=== PATIENT | male | born 1995 ===

== ENCOUNTER 2020-07-22 09:06 | Inpatient (IN) | payer SELFPAY ==
--- NOTE | ~2020-07-22 | IR_ITS ---
EXAMINATION: IR ULTRASOUND AND FLUOROSCOPY-GUIDED TUNNEL CATHETER INSERTION CLINICAL INFORMATION: Kidney insufficiency, needs long-term dialysis. COMPARISON: None TECHNIQUE: Following explaining ultrasound-guided fluoroscopy-guided placement of a tunneled permacath placement procedure, benefits and risk, a written consent was obtained from the patient. Patient was placed supine on fluoroscopy table and preliminary ultrasound imaging was obtained. An optimal site was selected, marked on the skin. The marked area on the right neck was cleaned and draped in usual sterile manner with 2% Chlorhexidine solution. 1% Lidocaine was injected at marked site. Under sterile ultrasound guidance a singlewall needle was advanced through the skin and right jugular vein was punctured. After observing venous return a thin guidewire was advanced and needle withdrawn. A 5-Prydeinig dilator was introduced. The needle and guidewire were anchored to drape with a hemostat. Approximately 1 gauze length distance away from the right skin incision along the right anterior chest wall 1% lidocaine was inserted. 1% lidocaine was inserted along subcutaneous tracts from the right anterior chest wall to the right neck incision. A blunt tunneler attached to the permacath was subcutaneously tunneled from the right chest wall incision to the right neck incision and the tunneled catheter was pulled through the right neck incision. The short guidewire was then exchanged for a long 0.035 J-wire and advanced into the IVC under fluoroscopy through the existing 5 Prydeinig dilator. The 5-Prydeinig dilator was then exchanged up to a 14-Prydeinig dilator and the tract dilated. A 14.2 Prydeinig sheath was then inserted over the guidewire and the dilator and the guidewire was removed. The tunneler anchored to the tip of the permacath was removed and the permacath was advanced through the peel-away sheath. As the catheter was advanced, the peel-away sheath was removed with catheter position checked under fluoroscopy. Both ports of the catheter were flushed with normal saline. The catheter was anchored to the skin with two 3-0 nylon sutures. The skin incision at the neck was sutured with 3-0 absorbable sutures. Heparin was introduced through both the ports. A single image was obtained over the chest for documentation. Sterile dressing was placed at the puncture site. Patient tolerated procedure extremely well. Conscious sedation was utilized for 40 minutes. FINDINGS: On preliminary ultrasound imaging, there is widely patent jugular vein. Ultrasound and fluoroscopy-guided placement of a right 14-Prydeinig tunneled catheter with it's tip at atriocaval junction. IR/IR us guide venous access IMPRESSION: Successful ultrasound and fluoroscopy-guided placement of the right tunneled catheter with it's tip at the atrio ventricular junction, ready for use. Dose: 3 mGy/cm.
--- NOTE | ~2020-07-22 | IR_ITS ---
EXAMINATION: IR ULTRASOUND AND FLUOROSCOPY-GUIDED TUNNEL CATHETER INSERTION CLINICAL INFORMATION: Kidney insufficiency, needs long-term dialysis. COMPARISON: None TECHNIQUE: Following explaining ultrasound-guided fluoroscopy-guided placement of a tunneled permacath placement procedure, benefits and risk, a written consent was obtained from the patient. Patient was placed supine on fluoroscopy table and preliminary ultrasound imaging was obtained. An optimal site was selected, marked on the skin. The marked area on the right neck was cleaned and draped in usual sterile manner with 2% Chlorhexidine solution. 1% Lidocaine was injected at marked site. Under sterile ultrasound guidance a singlewall needle was advanced through the skin and right jugular vein was punctured. After observing venous return a thin guidewire was advanced and needle withdrawn. A 5-Pakistani dilator was introduced. The needle and guidewire were anchored to drape with a hemostat. Approximately 1 gauze length distance away from the right skin incision along the right anterior chest wall 1% lidocaine was inserted. 1% lidocaine was inserted along subcutaneous tracts from the right anterior chest wall to the right neck incision. A blunt tunneler attached to the permacath was subcutaneously tunneled from the right chest wall incision to the right neck incision and the tunneled catheter was pulled through the right neck incision. The short guidewire was then exchanged for a long 0.035 J-wire and advanced into the IVC under fluoroscopy through the existing 5 Pakistani dilator. The 5-Pakistani dilator was then exchanged up to a 14-Pakistani dilator and the tract dilated. A 14.2 [place] sheath was then inserted over the guidewire and the dilator and the guidewire was removed. The tunneler anchored to the tip of the permacath was removed and the permacath was advanced through the peel-away sheath. As the catheter was advanced, the peel-away sheath was removed with catheter position checked under fluoroscopy. Both ports of the catheter were flushed with normal saline. The catheter was anchored to the skin with two 3-0 nylon sutures. The skin incision at the neck was sutured with 3-0 absorbable sutures. Heparin was introduced through both the ports. A single image was obtained over the chest for documentation. Sterile dressing was placed at the puncture site. Patient tolerated procedure extremely well. Conscious sedation was utilized for 40 minutes. FINDINGS: On preliminary ultrasound imaging, there is widely patent jugular vein. Ultrasound and fluoroscopy-guided placement of a right 14-Pakistani tunneled catheter with it's tip at atriocaval junction. 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 Dose: 3 mGy/cm.
[2020-07-22 09:13] VITALS: BP 160/81; PULSE 71; RESP 16; TEMP 36.6; O2SAT 99; BMI 25.8
--- NOTE | 2020-07-22 10:08 | ED.NAVMDI ---
HPI - Nausea/Vomiting/Diarrhea General Chief complaint: Abdominal Pain Stated complaint: vomiting 2 days Time Seen by Provider: 07/22/20 10:01 Source: patient Mode of arrival: ambulatory History of Present Illness HPI Narrative: 25-year-old male with a past medical history of chronic kidney disease, HTN, diabetes, presenting to the ED complaining of persistent nausea and vomiting x2 days. Reports back pain associated with vomiting. Denies fever, chills, abdominal pain, diarrhea/constipation, dysuria/hematuria, recent travel, suspicious food intake, sick contacts Patient reports history of CKD, noncompliant on hypertensive medications/follow-up with his paving rammer, last year was supposed to be initiated on dialysis Related Data Allergies Allergy/AdvReac Type Severity Reaction Status Date / Time NSAIDS (Non-Steroidal AdvReac Unknown KIDNEY Unverified 03/06/20 16:30 Anti-Inflamma DISEASE [NSAIDS (NON-STEROIDAL ANTI-INFLAMMA] Review of Systems Review of Systems: Constitutional: No Weight loss, No Fever, No Chills Cardiovascular: No Chest Pain, No SOB Respiratory: No Cough, No Sputum Gastrointestinal: + Nausea, + Vomiting, No Diarrhea, No Constipation, No Abdominal pain Genitourinary: No irregular bleeding, No Dysuria, No Urinary Frequency, No Hematuria,No Flank Pain, No Urinary Flow Changes, No Hesitancy Musculoskeletal: No joint pain, No Myalgias, No Joint Swelling Skin: No Skin Lesions, No rash Yes all other systems are reviewed and are negative [facility] Past Medical History Attestation statement: The following information was validated with the patient. Medical History (Updated 07/22/20 @ 13:36 by JUAN Quiñones) Chronic kidney disease Hypertension Social History Social History Advance Directives: Yes Advance Directives Information Provided: Yes Advance Directives on File: No Physical Exam Vital Signs: Vital Signs: Last Vital Signs Temp 98 F 07/22/20 09:13 Pulse 71 07/22/20 09:13 Resp 16 07/22/20 09:13 BP 160/81 H 07/22/20 09:13 Pulse Ox 99 07/22/20 09:13 Body Mass Index 25.8 Const: General: cooperative, healthy appearing, comfortable and no acute distress Orientation/consciousness: patient oriented x3 Limitations: no limitations HENMT: Head: Yes normal to inspection Ears: hearing grossly normal bilaterally General nose exam: Normal external nose present Face and sinus: Yes normal facial exam Eyes: General: appearance normal, both eyes and all related structures EOM: EOMs intact bilaterally Neck: Neck: Yes normal visual inspection Resp: Effort & Inspection: normal respiratory effort Cardio: Rate: regular rate GI: Inspection: Yes normal to inspection Palpation (GI): Soft to palpation, nontender, no guarding and not rigid : General: Yes no CVA tenderness Back/Spine/Pelvis: Back: no CVA tenderness Skin: Rashes: no rashes Wounds: no wounds Neuro: General: patient oriented x3 Gait exam (Neuro): Normal gait present Extrem: General: Yes normal to inspection Course Course Course Narrative: - 1241-- H&H slightly lower than baseline. Worsening acute on chronic renal failure with a BUN of 105, creatinine 14.9 > nephrology paged - UA is infected > IV Rocephin ordered - 1330-- spoke to Nephrology, Dr. Bunch, recommended admission for dialysis tomorrow MDM - Nausea/Vomiting/Diarrhea MDM Narrative Medical decision making narrative: 25-year-old male with a past medical history of chronic kidney disease, HTN, diabetes, presenting to the ED complaining of persistent nausea and vomiting x2 days. On exam VSS, NAD/nontoxic, physical exam as above. Concern for DKA/hyperglycemia vs dehydration/metabolic abnormalities vs acute on chronic INGRID vs gastroenteritis. No concern for diverticulitis/appendicitis/cholecystitis/pancreatitis without tenderness on exam Low concern for severe sepsis Plan: Labs, UA, IVF/symptomatic therapies, reassess Medical Records Attestation: I reviewed the patient's medical records. Lab Data Attestation: I reviewed the patient's lab results. Result diagrams: 07/22/20 11:38 07/22/20 11:38 Labs: Lab Results 07/22/20 07/22/20 07/22/20 Range/Units 11:38 11:38 11:38 WBC 9.7 (4.8-10.8) X10*3/uL RBC 3.28 L (4.60-5.80) X10*6/uL Hgb 9.4 L (14.0-18.0) g/dl Hct 28.2 L (42-52) % MCV 86.0 (80-98) fL MCH 28.7 (27.0-33.0) pg MCHC 33.3 (31.0-36.0) g/dl RDW 13.0 (11.0-16.0) % Plt Count 114 L (160-400) X10*3/uL MPV 11.3 (9.4-12.4) fL Immature Gran % (Auto) 0.6 H (0.0-0.4) % Neut % (Auto) 82.7 H (45-73) % Lymph % (Auto) 11.8 L (20-40) % [place] % (Auto) 3.6 (2-11) % Eos % (Auto) 1.0 (0-4) % Baso % (Auto) 0.3 (0-2) % Lymph # (Auto) 1.1 L (1.2-4.9) X10*3/uL [place] # (Auto) 0.4 (0.1-1.2) X10*3/uL Eos # (Auto) 0.1 (0.0-0.4) X10*3/uL Baso # (Auto) 0.0 (0.0-0.2) X10*3/uL Abs Immat Gran (auto) 0.06 H (0.00-0.03) X10*3/uL Absolute Neuts (auto) 8.0 (2.0-8.3) X10*3/uL Absolute Nucleated RBC 0.000 (0.0-0.012) X10*3/uL Nucleated RBC % (auto) 0.0 (0.0-0.2) /100WBC Hold Blue Top SEE NOTE Sodium 140 (135-145) mmol/L Potassium 4.3 (3.3-5.1) mmol/L Chloride 109 H (96-108) mmol/L Carbon Dioxide 15 L (22-29) mmol/L Anion Gap 20 (12-20) BUN 105 H* (9-16) mg/dL Creatinine 14.94 H* (0.5-1.4) mg/dL Estim Creat Clear Calc 7.3 Estimated GFR 4 Random Glucose 95 (60-115) mg/dL Calcium 7.0 L (8.4-10.2) mg/dL Magnesium 2.1 (1.6-2.6) mg/dL Total Bilirubin 0.5 (0.0-1.0) mg/dL Direct Bilirubin 0.2 (0.0-0.5) mg/dL AST 5 (5-37) U/L ALT 6 (0-40) U/L Alkaline Phosphatase 86 (39-117) U/L Total Protein 6.7 (6.5-8.0) g/dL Albumin 4.1 (3.5-5.0) g/dL Lipase 39 (8-78) U/L Urine Color Urine Appearance Urine pH (5.0-8.0) Ur Specific [place] (1.005-1.025) Urine Protein (NEG-TRACE) MG/DL Urine Glucose (UA) (NEG) MG/DL Urine Ketones (NEG) MG/DL Urine Blood (NEG) Urine Nitrite (NEG) Ur Leukocyte Esterase (NEG) Urine RBC (0) /HPF Urine WBC (0-4) /HPF Ur Squamous Epith Cells /LPF Urine Bacteria /LPF Urine Opiates Screen (Not Detect) Ur Barbiturates Screen (Not Detect) Ur Phencyclidine Scrn (Not Detect) Ur Amphetamines Screen (Not Detect) U Benzodiazepines Scrn (Not Detect) Urine Cocaine Screen (Not Detect) U Marijuana (THC) Screen (Not Detect) 07/22/20 07/22/20 Range/Units 11:39 11:39 WBC (4.8-10.8) X10*3/uL RBC (4.60-5.80) X10*6/uL Hgb (14.0-18.0) g/dl Hct (42-52) % MCV (80-98) fL MCH (27.0-33.0) pg MCHC (31.0-36.0) g/dl RDW (11.0-16.0) % Plt Count (160-400) X10*3/uL MPV (9.4-12.4) fL Immature Gran % (Auto) (0.0-0.4) % Neut % (Auto) (45-73) % Lymph % (Auto) (20-40) % [place] % (Auto) (2-11) % Eos % (Auto) (0-4) % Baso % (Auto) (0-2) % Lymph # (Auto) (1.2-4.9) X10*3/uL [place] # (Auto) (0.1-1.2) X10*3/uL Eos # (Auto) (0.0-0.4) X10*3/uL Baso # (Auto) (0.0-0.2) X10*3/uL Abs Immat Gran (auto) (0.00-0.03) X10*3/uL Absolute Neuts (auto) (2.0-8.3) X10*3/uL Absolute Nucleated RBC (0.0-0.012) X10*3/uL Nucleated RBC % (auto) (0.0-0.2) /100WBC Hold Blue Top Sodium (135-145) mmol/L Potassium (3.3-5.1) mmol/L Chloride (96-108) mmol/L Carbon Dioxide (22-29) mmol/L Anion Gap (12-20) BUN (9-16) mg/dL Creatinine (0.5-1.4) mg/dL Estim Creat Clear Calc Estimated GFR Random Glucose (60-115) mg/dL Calcium (8.4-10.2) mg/dL Magnesium (1.6-2.6) mg/dL Total Bilirubin (0.0-1.0) mg/dL Direct Bilirubin (0.0-0.5) mg/dL AST (5-37) U/L ALT (0-40) U/L Alkaline Phosphatase (39-117) U/L Total Protein (6.5-8.0) g/dL Albumin (3.5-5.0) g/dL Lipase (8-78) U/L Urine Color STRAW Urine Appearance HAZY Urine pH 6.0 (5.0-8.0) Ur Specific [place] 1.020 (1.005-1.025) Urine Protein 2+ H (NEG-TRACE) MG/DL Urine Glucose (UA) 100 H (NEG) MG/DL Urine Ketones NEG (NEG) MG/DL Urine Blood 2+ H (NEG) Urine Nitrite NEG (NEG) Ur Leukocyte Esterase TRACE H (NEG) Urine RBC 1-4 (0) /HPF Urine WBC 30-49 H (0-4) /HPF Ur Squamous Epith Cells TRACE /LPF Urine Bacteria 1+ /LPF Urine Opiates Screen Not Detected (Not Detect) Ur Barbiturates Screen Not Detected (Not Detect) Ur Phencyclidine Scrn Not Detected (Not Detect) Ur Amphetamines Screen Not Detected (Not Detect) U Benzodiazepines Scrn Not Detected (Not Detect) Urine Cocaine Screen Not Detected (Not Detect) U Marijuana (THC) Screen Not Detected (Not Detect) Discharge Plan Discharge Clinical Impression: Acute UTI Renal failure, acute on chronic Qualifiers: Acute renal failure type: unspecified Chronic kidney disease stage: unspecified stage Qualified Code(s): N17.9 - Acute kidney failure, unspecified Patient Disposition: Admitted As Inpatient
[2020-07-22 11:46] LABS: MANUAL DIFF FLAG NO
[2020-07-22 11:53] LABS: Basophils Percent Auto 0.3 % (0-2); Eosinophils Absolute Auto 0.1 X10*3/uL (0.0-0.4); Hematocrit 28.2 % (42-52); Hemoglobin 9.4 g/dl (14.0-18.0); Imm Gran Abs Auto 0.06 X10*3/uL (0.00-0.03); Imm Gran Pct Auto 0.6 % (0.0-0.4); Lymphocytes Absolute Auto 1.1 X10*3/uL (1.2-4.9); Lymphocytes Percent Auto 11.8 % (20-40); Mean Corpuscular HGB Conc 33.3 g/dl (31.0-36.0); Mean Corpuscular Hemoglobin 28.7 pg (27.0-33.0); Mean Platelet Volume 11.3 fL (9.4-12.4); Monocytes Absolute Auto 0.4 X10*3/uL (0.1-1.2); Monocytes Percent Auto 3.6 % (2-11); Neutrophils Percent Auto 82.7 % (45-73); Platelet Count 114 X10*3/uL (160-400); Red Blood Count 3.28 X10*6/uL (4.60-5.80); White Blood Count 9.7 X10*3/uL (4.8-10.8)
[2020-07-22 11:57] LABS: Appearance Urine HAZY; Color Urine STRAW; Glucose Urine UA 100 MG/DL (NEG); Leukocyte Esterase Urine TRACE (NEG); Nitrite Urine NEG (NEG); UACC Culture Trigger YES; Urine Blood 2+ (NEG); Urine Ketones NEG (NEG); Urine Protein 2+ MG/DL (NEG-TRACE)
[2020-07-22 12:06] LABS: Squamous Epithelial Cell Urine TRACE /LPF; WBC Urine 30-49 /HPF (0-4)
[2020-07-22 12:07] LABS: Bacteria Urine 1+ /LPF
[2020-07-22] MEDS: Famotidine/PF 20 MG/2 ML VIAL IVPUSH (12:20)
[2020-07-22] MEDS: 0.9 % Sodium Chloride 1,000 ML 999 ML IVCONT ×2 (12:20→15:03)
[2020-07-22] MEDS: ondansetron HCL 4 MG/2 ML VIAL IVPUSH (12:20)
[2020-07-22] MEDS: Lidocaine HCl Viscous 2 % 15 ML SOLUTION MUCOUS MEM (12:20)
[2020-07-22 12:26] LABS: Alanine Aminotransferase 6 U/L (0-40); Albumin Level 4.1 g/dL (3.5-5.0); Alkaline Phosphatase 86 U/L (39-117); Anion Gap 20 (12-20); Aspartate Amino Transferase 5 U/L (5-37); Bilirubin Direct 0.2 mg/dL (0.0-0.5); Bilirubin Total 0.5 mg/dL (0.0-1.0); Blood Urea Nitrogen 105 mg/dL (9-16); Carbon Dioxide 15 mmol/L (22-29); Chloride 109 mmol/L (96-108); Creatinine Clr Calc Pharmacy 7.3; Estimated Glomerular Filt Rate 4; Glucose Random 95 mg/dL (60-115); Lipase 39 U/L (8-78); Magnesium 2.1 mg/dL (1.6-2.6); Potassium 4.3 mmol/L (3.3-5.1); Sodium 140 mmol/L (135-145); Total Protein 6.7 g/dL (6.5-8.0)
[2020-07-22 12:28] LABS: Amphetamine Screen Urine Not Detected (Not Detect); Barbiturates, Urine Not Detected (Not Detect); Benzodiazepines Screen Urine Not Detected (Not Detect); Cannabinoid Screen Urine Not Detected (Not Detect); Cocaine Screen Urine Not Detected (Not Detect); Opiate Screen Urine Not Detected (Not Detect); Phencyclidine Screen Urine Not Detected (Not Detect)
--- NOTE | 2020-07-22 13:52 | PC.NURSE ---
reported lower back pain after vomiting. 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 no active vomiting.
[2020-07-22 14:18] LABS: COVID-19 Test Negative (Negative); IDNOW Serial# 9DD0AD1C
[2020-07-22 14:35] VITALS: BP 137/78; PULSE 89; RESP 16; TEMP 36.7; O2SAT 100
[2020-07-22] MEDS: cefTRIAXone sodium 1 GM in 0.9 % Sodium Chloride 50 ML IV (15:03)
--- NOTE | 2020-07-22 17:06 | PM.EVENT ---
Event Note Date of Service: 07/22/20 Event Note: Patient seen examined case discussed with APC 25-year-old gentleman with past medical history significant for chronic kidney disease non compliant with antihypertensive medication, history of hypertension,presented to emergency room with symptoms of nausea vomiting of 2 days duration without associated fever chills or diarrhea patient denies any sick contacts no outside food no recent travel, no hematemesis vomitus consisted of mostly food and bile On examination sitting comfortably no distress Color pale Lungs clear to auscultation Heart regular tachy Abdomen soft nontender Extremities no edema Assessment plan Acute on chronic kidney disease patient creatinine jumped from 7 in 2019 to 14.9 today with a bicarb of 15 normal potassium, no signs of uremia Will treat patient with IV fluids follow renal function and obtain nephrology consultation ARF likely related to dehydration versus worsening of baseline kidney disease BP 160/81 on arrival now improved to 130 /78 follow BP closely
[2020-07-22] MEDS: 0.9 % Sodium Chloride 1,000 ML 125 ML IVCONT (17:18)
--- NOTE | 2020-07-22 17:19 | HP_ITS ---
DATE OF SERVICE: 07/22/2020 CHIEF COMPLAINT: Nausea and vomiting. HISTORY OF PRESENT ILLNESS: A 25-year-old man with a history of chronic kidney disease since childhood, presents with nausea and vomiting over the last 2 days. He reports that his appetite has been poor. He denies any outside foods, marijuana, recent illness, or travel. He denied fever, chills, abdominal pain, diarrhea. He reported that he has not been on his antihypertensive medication for at least 6 months. He does not have a primary care provider. He reports that he does produce urine. His baseline creatinine is around 5. Today, his creatinine is 14.94. He does not appear to be uremic and he is nontoxic. His BUN is 105. Potassium 4.3. Coronavirus PCR is negative. His vital signs are stable, though his initial blood pressure was mildly elevated at 160/81. He was given a dose of Rocephin for urinary tract infection, famotidine, 1 L of IV fluid. He will be admitted for further management and treatment of acute on chronic kidney disease. PAST MEDICAL HISTORY: 1. Chronic kidney disease since childhood. 2. Hypertension. Not on antihypertensives. PAST SURGICAL HISTORY: None. SOCIAL HISTORY: Denies any alcohol, tobacco, illicit drug use. 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 FAMILY HISTORY: Both parents and his sister are diabetic. High blood pressure also in the family. ALLERGIES: TO NSAIDS. MEDICATIONS: 1. Calcifediol 30 mcg p.o. at bedtime. 2. Sodium bicarbonate 650 mg p.o. daily. REVIEW OF SYSTEMS: CONSTITUTIONAL: Denies any recent fever, chills, or decrease in appetite. RESPIRATORY: Denies any shortness of breath, cough, or sputum production. CARDIOVASCULAR: Denies any chest pain, orthopnea, PND, or edema. GASTROINTESTINAL: See HPI. GENITOURINARY: See HPI. NEUROPSYCH: Denies any weakness or seizures. All other systems are reviewed and are negative. PHYSICAL EXAMINATION: CONSTITUTIONAL: Resting in bed, appearing in no acute distress. VITAL SIGNS: 98.1, 89, 16, 137/70, 100% on room air. SKIN: Intact without rashes or open sores. HEENT: Head is normocephalic, atraumatic. Eyes, pupils are PERRLA. Sclerae anicteric. Mouth and throat, mucous membrane are intact and moist. NECK: Supple. No lymphadenopathy. No JVD noted. CHEST: Clear to auscultation without wheezes, rhonchi, or rales. HEART: Regular rate and rhythm. Clear S1, S2. No murmurs, rubs, or gallops. ABDOMEN: Positive bowel sounds. Soft. Nontender. No hepatomegaly or splenomegaly noted. NEURO: The patient is alert and oriented x3. Cranial nerves II through XII grossly intact without focal deficits. LABORATORY DATA: WBC 9.7, hemoglobin 9.4, hematocrit 28.2, platelets 114. Sodium is 140, potassium 4.3, chloride is 109, bicarb is 15, BUN is 105, creatinine 14.94. COVID, negative. ASSESSMENT AND PLAN: A 25-year-old man with history of chronic renal disease, appears to be in acute renal disease, likely related to dehydration and volume loss from vomiting. 1. Acute on chronic kidney disease. IV hydration. Nephrology to follow. If no improvement seen in his creatinine, may need dialysis. We will recheck BMP this evening after more hydration. The patient appears to be nontoxic. 2. Anemia. Likely related to chronic kidney disease. No signs of bleeding. Follow CBC. 3. Urinary tract infection. Mild. Rocephin. Follow urine culture. 4. Deep vein thrombosis prophylaxis with early ambulation, low risk. 5. Case discussed with Dr. Berry. PAOLA Thomas MD JR/VITA / [id number]
[2020-07-22] MEDS: Sodium Bicarbonate 650 MG TABLET PO (17:34)
[2020-07-22 20:33] VITALS: BP 144/76; PULSE 66; RESP 16; O2SAT 100
--- NOTE | 2020-07-22 23:29 | PC.NURSE ---
OK TO SHARE INFORMATION WITH GIRLFRIEND ROHITH PER PATIENT.
[2020-07-23] VITALS (8 sets, daily range): BP systolic 133–152; BP diastolic 55–83; PULSE 60–84; RESP 16–18; TEMP 36.4–37.1; O2SAT 97–100
--- NOTE | 2020-07-23 00:03 | PC.NURSE ---
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 SITTING UP ON SIDE OF BED. REQUESTING SOMETHING TO DRINK. WANTED TO HAVE OJ. EDUCATED THAT DUE TO RENAL FUNCTION OJ WAS NOT APPROPRIATE. REPORTS DRINKING A GALLON OF OJ A DAY AT HOME.
[2020-07-23] MEDS: 0.9 % Sodium Chloride Flush 3 ML SYRINGE IVFLUSH ×2 (00:26→17:23)
[2020-07-23] MEDS: 0.9 % Sodium Chloride 1,000 ML 125 ML IVCONT (04:30)
[2020-07-23 04:46] LABS: Basophils Percent Auto 0.3 % (0-2); Eosinophils Absolute Auto 0.1 X10*3/uL (0.0-0.4); Eosinophils Percent Auto 2.2 % (0-4); Hematocrit 25.7 % (42-52); Hemoglobin 8.4 g/dl (14.0-18.0); Imm Gran Abs Auto 0.01 X10*3/uL (0.00-0.03); Imm Gran Pct Auto 0.2 % (0.0-0.4); Lymphocytes Absolute Auto 1.6 X10*3/uL (1.2-4.9); Lymphocytes Percent Auto 24.2 % (20-40); Mean Corpuscular HGB Conc 32.7 g/dl (31.0-36.0); Mean Corpuscular Volume 88.6 fL (80-98); Mean Platelet Volume 11.4 fL (9.4-12.4); Monocytes Absolute Auto 0.3 X10*3/uL (0.1-1.2); Monocytes Percent Auto 4.8 % (2-11); Neutrophils Absolute Auto 4.4 X10*3/uL (2.0-8.3); Neutrophils Percent Auto 68.3 % (45-73); Platelet Count 100 X10*3/uL (160-400); Red Cell Distribution Width 13.2 % (11.0-16.0); White Blood Count 6.5 X10*3/uL (4.8-10.8)
[2020-07-23 04:48] LABS: MANUAL DIFF FLAG NO
[2020-07-23 05:15] LABS: Anion Gap 18 (12-20); Blood Urea Nitrogen 99 mg/dL (9-16); Carbon Dioxide 14 mmol/L (22-29); Chloride 113 mmol/L (96-108); Creatinine Clr Calc Pharmacy 7.9; Estimated Glomerular Filt Rate 4; Glucose Random 80 mg/dL (60-115); Potassium 4.3 mmol/L (3.3-5.1); Sodium 141 mmol/L (135-145)
[2020-07-23 05:27] LABS: Calcium 6.8 mg/dL (8.4-10.2)
[2020-07-23 08:01] LABS: Iron 83 mcg/dL (45-160); Percent Iron Saturation 39 % (15-50); Total Iron Binding Capacity 212 mcg/dL (228-428); Unsaturated Iron Binding 129 ug/dL
[2020-07-23 08:24] LABS: Ferritin 142 ng/mL (20-250)
[2020-07-23] MEDS: Sodium Bicarbonate 650 MG TABLET PO (11:02)
--- NOTE | 2020-07-23 11:02 | P.CONNP_ITS ---
History of Present Illness Reason for Consult Consult date: 07/23/20 Reason for consult: Uremia Chief Complaint Chief complaint: vomiting 2 days History of Present Illness Narrative: 25-year-old with advanced chronic kidney disease at baseline who has been non compliant with appointments since one year presented to ER with nausea and vomiting over the last 2 days. His appetite has been poor. He has not been on his antihypertensive medication for at least 6 months. His baseline creatinine is around 5. Today, his creatinine at presentation was 14.94. Coronavirus PCR is negative. He was admitted for further management . Nephrology was consulted to assist in his clinical care during his current hospital stay Review of Systems Review of Systems Yes all other systems are reviewed and are negative PMF Past Medical History Medical History (Updated 07/23/20 @ 11:09 by Trevin Bunch MD) Chronic kidney disease Hypertension Family History Family history: reviewed and not pertinent Social History Social History Alcohol intake: current Alcohol intake frequency: holidays/special occasions only Smoking Status: Never smoker Use of substances other than those prescribed or required for medical reasons: Yes Substance Use Type: Marijuana Substance Use Frequency: Daily Advance Directives: Yes Advance Directives Information Provided: Yes Advance Directives on File: No Meds Allergies Allergy/AdvReac Type Severity Reaction Status Date / Time NSAIDS (Non-Steroidal AdvReac Unknown KIDNEY Unverified 03/06/20 16:30 Anti-Inflamma DISEASE [NSAIDS (NON-STEROIDAL ANTI-INFLAMMA] Home Medications Medication Instructions Recorded Confirmed Type calcifediol [Rayaldee] 30 mcg PO BEDTIME 07/22/20 07/22/20 History sodium bicarbonate 650 mg PO DAILY 07/22/20 07/22/20 History Physical Exam Vital Signs: Last Vital Signs Temp 98.5 F 07/23/20 08:00 Pulse 60 07/23/20 08:00 Resp 18 07/23/20 08:00 BP 140/64 H 07/23/20 08:00 Pulse Ox 100 07/23/20 08:00 Body Mass Index 25.8 Const General: comfortable Orientation/consciousness: patient oriented x3 HENMT Head: Yes normocephalic Eyes EOM: EOMs intact bilaterally Resp Auscultation: diminished lung sounds Cardio Heart sounds: no rubs GI Palpation (GI): Soft to palpation Neuro General: patient oriented x3 and moves all extremities Results Lab Results Result Diagrams: 07/23/20 04:34 07/23/20 04:34 Lab results: Chemistry 07/22/20 07/23/20 11:38 04:34 Sodium 140 141 Potassium 4.3 4.3 Carbon Dioxide 15 L 14 L BUN 105 H* 99 H* Creatinine 14.94 H* 13.93 H* Calcium 7.0 L 6.8 L Hematology 07/22/20 07/23/20 11:38 04:34 WBC 9.7 6.5 Hgb 9.4 L 8.4 L Plt Count 114 L 100 L Urinalysis 07/22/20 11:39 Urine Color STRAW Urine Appearance HAZY Urine pH 6.0 Ur Specific [place] 1.020 Urine Protein 2+ H Urine Glucose (UA) 100 H Urine Ketones NEG Urine Blood 2+ H Urine Nitrite NEG Ur Leukocyte Esterase TRACE H Urine RBC 1-4 Urine WBC 30-49 H Ur Squamous Epith Cells TRACE Assessment and Plan (1) ESRD (end stage renal disease): Status: Acute Uremic Permcath tomorrow AM by IR Could receive DDAVP 25 mcg IVP tomorrow AM pre permcath Needs to be NPO from midnight for permcath tomorrow Needs INR if not done Dialysis tomorrow, Tuesday and Tuesday Outpatient HD spot requested in [facility] ( Senior Finance Manager Dipika York RN- Tel No: [phone]) Could be discharged after HD on tuesday D/C NaHCO3 tomorrow Renal Diet ( Low sodium, Low Phos) ( Has good urine output and normal serum K- So restriction for it for now) Hepatitis panel /PTH/Vitamin D AM Case Management need to touch base with Dipika York( details mentioned above) (2) Anemia in chronic kidney disease: Status: Acute Needs check Iron studies including transferrin saturation If T sat is > 20 %, shall initiate Procrit (3) Hypertension: Status: Acute Shall bring dry weight down on HD Will start low dose ARB if BP remains labile (4) Metabolic acidosis: Status: Acute Shall adjust Bicarb on HD and D/C PO NaHCO3 tomorrow
--- NOTE | 2020-07-23 14:24 | MHC.CM.PN ---
pt lives c his mother in her home. he reports that he is independent in his care. hi mother [place] provide transportation [place]. pt is just starting dialysis; plan is to have HD here tuesday and tuesday; then dc c transition of HD to the following:Outpatient HD spot requested in [facility] ( Pick Pack Worker Dipika York RN- Tel No: [phone]) . cm to cont . to follow.
--- NOTE | 2020-07-23 15:47 | P.PNIM_ITS ---
Subjective Subjective Date of Service: 07/23/20 Interval History: No acute complaints denies nausea, no vomiting no abdominal pain has been receiving IV fluid overnight. General no headache, no dizziness , no fever chills. CVS no chest pain, no palpitation. Respiratory no cough, no shortness of breath Gastrointestinal no nausea, no vomiting, no abdominal pain Physical Exam Vital Signs: Vital Signs: Last Vital Signs Temp 97.6 F 07/23/20 15:35 Pulse 67 07/23/20 15:35 Resp 18 07/23/20 15:35 BP 133/83 07/23/20 15:35 Pulse Ox 100 07/23/20 15:35 Body Mass Index 25.8 General no acute distress. Neck supple, no JVD. CVS regular rate rhythm, Respiratory lungs clear to auscultation, no respiratory distress, no wheeze, no rhonchi. Gastrointestinal abdomen soft, nontender, bowel sounds audible, no guarding , no rigidity. Extremities no edema. Neuro nonfocal , speech clear. Skin no rash, color pale Objective Data Current Medications Generic Name Dose Route Start Last Admin Trade Name Jose Alfredoq PRN Reason Stop Dose Admin Acetaminophen 650 mg 07/22/20 16:01 Acetaminophen 325 Mg Tablet PO Q6H PRN Pain, Mild (Pain Scale 1-3) Heparin Sodium (Porcine) 5,000 unit 07/24/20 06:00 Heparin Sodium,Porcine 5,000 Unit/Ml Vial INTRACATH 07/24/20 06:01 ONCE ONE Desmopressin Acetate 20 mcg/ 55 mls @ 100 mls/hr 07/24/20 06:00 Sodium Chloride IV ONCE@0600 [facility] Non-Formulary Medication 30 mcg 07/22/20 21:00 Calcifediol [Rayaldee] PO BEDTIME [facility] Ondansetron HCl 4 mg 07/22/20 16:01 Ondansetron Hcl 4 Mg/2 Ml Vial IVPUSH Q8H PRN Nausea and Vomiting Pharmacy Consult 1 each 07/22/20 13:37 Consult Rx Perform Med Rec MISCELLANE ONCE PRN Consult order Sodium Bicarbonate 650 mg 07/23/20 09:00 07/23/20 11:02 Sodium Bicarbonate 650 Mg Tablet PO 650 mg DAILY [facility] Administration Sodium Chloride 3 ml 07/22/20 16:01 07/23/20 07:27 0.9 % Sodium Chloride Flush 3 Ml Syringe IVFLUSH Not Given QSHIFT [facility] Labs CBC & Chem 7: 07/23/20 04:34 07/23/20 04:34 Microbiology Microbiology Results: Microbiology 07/22/20 Unknown Urine clean catch - Clean Catch Midstream Urine Culture - Final No growth. Assessment and Plan (1) Anemia in chronic kidney disease: Status: Acute (2) Renal failure, acute on chronic: Status: Acute (3) ESRD (end stage renal disease): Status: Acute (4) Hypertension: Status: Acute (5) Acute UTI: Status: Acute (6) Metabolic acidosis: Status: Acute Assessment and Plan: 25-year-old man with history of chronic renal disease, appears to be in acute renal disease, likely related to worsening underlying renal disease, dehydration due to volume loss from vomiting. 1. Acute on chronic advance kidney disease. No further bout of nausea ,vomiting, no abdominal pain, no change in creatinine despite IV hydration, case discussed with Nephrology patient has reached end-stage renal disease therefore PermCath is scheduled for tomorrow, and then patient will receive 3 days of hemodialysis in-house and then will be discharged home for continued outpatient hemodialysis Will keep patient NPO after midnight. 2. Anemia related to kidney disease. Patient noted to have drop in hematocrit overnight iron studies are normal, will with discuss with Nephro regarding Procrit 3. Positive UA, patient asymptomatic urine culture showed no growth therefore will discontinue IV antibiotic . 4. Metabolic acidosis due to advanced renal disease continue soda bicarb today, Nephro will adjust bicarb on hemodialysis tomorrow. Deep vein thrombosis prophylaxis with early ambulation, avoid anticoagulation due to anemia.
[2020-07-24] MEDS: 0.9 % Sodium Chloride Flush 3 ML SYRINGE IVFLUSH ×3 (01:15→23:16)
[2020-07-24 03:25] VITALS: BP 140/81; PULSE 69; RESP 18; TEMP 36.8; O2SAT 99
[2020-07-24 07:14] LABS: Partial Thromboplastin Time 27.6 SEC (24.1-38.0)
[2020-07-24 07:33] LABS: INTERNATIONAL NORM RATIO 1.2 (0.9-1.1); Prothrombin Time 13.7 SEC (10.8-13.0)
[2020-07-24 07:51] LABS: Iron 101 mcg/dL (45-160); Percent Iron Saturation 47 % (15-50); Phosphorus 8.3 mg/dL (2.7-4.5); Total Iron Binding Capacity 216 mcg/dL (228-428); Unsaturated Iron Binding 115 ug/dL
[2020-07-24 08:00] VITALS: BP 138/62; PULSE 72; RESP 16; TEMP 36.8; O2SAT 98
[2020-07-24 08:11] LABS: Vitamin D 25-OH Total 8.5 ng/mL (>30)
[2020-07-24 08:59] LABS: HBS Num1 27.96 mIU/mL (0-7.99); HBc Num1 0.09 S/CO (0.00-0.79); HBsAGNum1 0.18 S/CO (0.00-0.99); Hepatitis B Core Antibody Nonreactive (Nonreactive); Hepatitis B Surface Antigen Negative (Negative); ~Hepatitis B Surface Antibody REACTIVE (Nonreactive)
[2020-07-24] MEDS: Sodium Bicarbonate 650 MG TABLET PO (09:08)
[2020-07-24 09:15] LABS: ~HepC Num1 0.13 S/CO (0.00-0.79); ~Hepatitis C Antibody Nonreactive (Nonreactive)
--- NOTE | 2020-07-24 10:50 | HO.PM.IMPN ---
Subjective Subjective Date of Service: 07/24/20 Interval History: Patient offers no acute complaints slept well no nausea, no vomiting, no diarrhea, wishes to take a shower ros General no headache, no dizziness , no fever chills. CVS no chest pain, no palpitation. Respiratory no cough, no shortness of breath Gastrointestinal no nausea, no vomiting, no abdominal pain Physical Exam Vital Signs: Vital Signs: Last Vital Signs Temp 98.3 F 07/24/20 08:00 Pulse 72 07/24/20 08:00 Resp 16 07/24/20 08:00 BP 138/62 07/24/20 08:00 Pulse Ox 98 07/24/20 08:00 Body Mass Index 25.8 General no acute distress resting comfortably in bed. Neck supple, no JVD. CVS regular rate rhythm, Respiratory lungs clear to auscultation, no respiratory distress, no wheeze, no rhonchi. Gastrointestinal abdomen soft, nontender, bowel sounds audible, no guarding , no rigidity. Extremities no edema. Neuro nonfocal , speech clear. Skin no rash, color pale Objective Data Current Medications Generic Name Dose Route Start Last Admin Trade Name Freq PRN Reason Stop Dose Admin Acetaminophen 650 mg 07/22/20 16:01 Acetaminophen 325 Mg Tablet PO Q6H PRN Pain, Mild (Pain Scale 1-3) Desmopressin Acetate 20 mcg/ 55 mls @ 100 mls/hr 07/24/20 12:00 Sodium Chloride IV 07/24/20 12:32 ONCE@1200 ONE Non-Formulary Medication 30 mcg 07/22/20 21:00 Calcifediol [Rayaldee] PO BEDTIME [facility] Ondansetron HCl 4 mg 07/22/20 16:01 Ondansetron Hcl 4 Mg/2 Ml Vial IVPUSH Q8H PRN Nausea and Vomiting Pharmacy Consult 1 each 07/22/20 13:37 Consult Rx Perform Med Rec MISCELLANE ONCE PRN Consult order Sodium Bicarbonate 650 mg 07/23/20 09:00 07/24/20 09:08 Sodium Bicarbonate 650 Mg Tablet PO 650 mg DAILY [facility] Administration Sodium Chloride 3 ml 07/22/20 16:01 07/24/20 09:08 0.9 % Sodium Chloride Flush 3 Ml Syringe IVFLUSH 3 ml QSHIFT EVELYN Administration Labs CBC & Chem 7: 07/23/20 04:34 07/23/20 04:34 Microbiology Microbiology Results: Microbiology 07/22/20 Unknown Urine clean catch - Clean Catch Midstream Urine Culture - Final No growth. Assessment and Plan (1) Metabolic acidosis: Status: Acute (2) Hypertension: Status: Acute (3) Anemia in chronic kidney disease: Status: Acute (4) ESRD (end stage renal disease): Status: Acute (5) Renal failure, acute on chronic: Status: Acute Assessment and Plan: 25-year-old man with history of chronic renal disease, appears to be in acute renal disease, likely related to worsening underlying renal disease, dehydration due to volume loss from vomiting. 1. Acute on chronic advance kidney disease. No further bout of nausea ,vomiting, no abdominal pain, no change in creatinine patient NPO for PermCath placement today subsequently went undergo hemodialysis will receive 3 days of hemodialysis in-house and then will be discharged home for continued outpatient hemodialysis, case discussed with Nephrology 2. Anemia related to kidney disease. low hematocrit, iron studies are normal, will give Procrit after hemodialysis 3. Positive UA, patient asymptomatic urine culture showed no growth no treatment required 4. Metabolic acidosis due to advanced renal disease will DC soda bicarb , Nephro will adjust bicarb with hemodialysis 5. Deep vein thrombosis prophylaxis with early ambulation.
--- NOTE | 2020-07-24 11:48 | P.PNNP_ITS ---
Subjective Subjective Date of Service: 07/24/20 Interval history: Events noted. All recent data reviewed. D/W Hospitalist Physical Exam Vital Signs: Vital Signs: Last Vital Signs Temp 98.3 F 07/24/20 08:00 Pulse 72 07/24/20 08:00 Resp 16 07/24/20 08:00 BP 138/62 07/24/20 08:00 Pulse Ox 98 07/24/20 08:00 Body Mass Index 25.8 Const: General: no acute distress Orientation/consciousness: patient oriented x3 Neck: Neck: Yes supple Resp: Auscultation: diminished lung sounds Cardio: Jugular venous distension: no JVD Rate: regular rate GI: Palpation (GI): Soft to palpation Neuro: General: patient oriented x3 and moves all extremities Objective Data Labs CBC & Chem 7: 07/23/20 04:34 07/23/20 04:34 Labs: Laboratory Results - last 24 hr 07/24/20 07/24/20 07/24/20 06:41 06:41 06:41 PT 13.7 H INR 1.2 H APTT 27.6 Phosphorus 8.3 H Iron 101 TIBC 216 L % Saturation 47 Unsat Iron Binding 115 25-OH Vitamin D Total 8.5 Hep Bs Antigen Negative Hep Bs Antibody REACTIVE Hep B Core Total Ab Nonreactive Hepatitis C Ab (EIA) Nonreactive Microbiology Microbiology Results: Microbiology 07/22/20 Unknown Urine clean catch - Clean Catch Midstream Urine Culture - Final No growth. Assessment & Plan Assessment and plan (1) ESRD (end stage renal disease): Problem details: Permcath this AM by IR Dialysis today, Tuesday and Tuesday Outpatient HD spot requested in [facility] ( Stock Transfer Clerk Dipika York RN- Tel No: [phone]) Could be discharged after HD on tuesday D/Lg NaHCO3 today. Shall adjust HCO3 in Dialysate Renal Diet ( Low sodium, Low Phos) ( Has good urine output and normal serum K- So restriction for it for now) Hepatitis panel /PTH/Vitamin D pending Case Management need to touch base with Dipika York( details mentioned above) (2) Anemia in chronic kidney disease: Reviewed Iron studies including transferrin saturation Procrit [id number] Units ordered (3) Hypertension: Shall bring dry weight down on HD Will start low dose ARB if BP remains labile Status: Acute Time Spent With Patient Time: Total time spent is greater than 50% in coordination of care (as document ed) at patient's floor/unit and/or counseling patient:
[2020-07-24 11:51] VITALS: BP 143/65; PULSE 80; RESP 16; TEMP 36.8; O2SAT 100
[2020-07-24] MEDS: Desmopressin Acetate 20 MCG in 0.9 % Sodium Chloride 50 ML 100 MCG IV (12:14)
[2020-07-24] MEDS: Lidocaine HCl 1 % MPF 5 ML VIAL 10 ML SUBCUT (13:58)
[2020-07-24] MEDS: Heparin Sodium,Porcine 1,000 UNIT/ML VIAL 4000 UNIT IV (13:59)
--- NOTE | 2020-07-24 14:30 | MHC.CM.PN ---
PER HOSPITALIST ROUNDS, PLAN IS FOR PATIENT TO GET A PERMA CATH AND HAVE 3 DAYS OF HD HERE AT THE [facility]. PLAN IS TO DC HOME TUESDAY
[2020-07-24 16:37] VITALS: BP 155/75; PULSE 75; RESP 18; TEMP 36.6; O2SAT 100
[2020-07-24] MEDS: Acetaminophen 325 MG TABLET 650 MG PO (17:46)
[2020-07-24 19:32] VITALS: BP 147/58; PULSE 97; RESP 16; TEMP 36.3; O2SAT 100
[2020-07-24] MEDS: oxyCODONE HCl Immed Release 5 MG TABLET PO (21:02)
[2020-07-24 23:43] VITALS: BP 140/76; PULSE 76; RESP 16; TEMP 36.5; O2SAT 100
[2020-07-25 03:43] VITALS: BP 136/54; PULSE 70; RESP 16; TEMP 36.8; O2SAT 99
--- NOTE | 2020-07-25 06:35 | MHC.PIE ---
late entry 07/24 1999 p; [facility]; prn Tylenol given with little effect i; dr dubon notified; new order oxy 5 mg po q8 e; pt reports good effect, will cont to monitor
[2020-07-25 07:16] VITALS: BP 121/57; PULSE 71; RESP 18; TEMP 36.8; O2SAT 99
[2020-07-25 07:48] LABS: Glucose, Whole Blood 177 mg/dL (60-115)
[2020-07-25 08:18] LABS: Hepatitis A Antibody IgM 0.09 Index (0-0.79); ~Hepatitis A Antibody IgM Nonreactive (Nonreactive)
[2020-07-25] MEDS: 0.9 % Sodium Chloride Flush 3 ML SYRINGE IVFLUSH ×3 (08:34→23:26)
[2020-07-25] MEDS: oxyCODONE HCl Immed Release 5 MG TABLET PO (08:37)
--- NOTE | 2020-07-25 09:37 | MHC.CM.PN ---
NURSE INTERNET SECURITY SPECIALIST NOTE ELECTRONIC MEDICAL RECORD REVIEWED ALONG WITH CASE DISCUSSED WITH STAFF NURSE, TELEPHONE CALL TO THE [facility] [address] I SPOKE WITH CLINICAL ACUTE CARE NURSING ASSISTANT VIOLET PRAKASH BN([phone]) CLINICALS SENT TO HER WITH LABS, HEPATITIS PANEL , COVID TESTING, HEMODIALYSIS SHEET AND HEMO DIALYSIS TUNNELED CATH HISTORY AND PHYSICA . FAXED TO [phone], HE SHEDULED TO START Tuesday07/25/20 AT 10;30 AND THEN EVERY -W- AT HIS FIRST APPINTMENT HE HAYDEE MEET WITH THE SOCIAL WQORKER AND SHE WILL WORK WITH HIM ON DIFFERENT OPTIONS FOR TRANSPORTATION DISCAHRGE PLAN-HOME HEMODIALYSIS AT THE [facility] (ADDRESS, TIME AND START DAYS GIVEN TO HIM , HE WILL NEED TO SELF ARRANGE TRANSPORTATION FOR HIS FIRWST APPOINTMENT TRANPSORTATION AT DISCHARGE FAMIL IMM GIVEN /EXPAINED N 07/25/20Y
--- NOTE | 2020-07-25 11:03 | P.PNNP_ITS ---
Subjective Subjective Date of Service: 07/25/20 Interval history: Events noted. All recent data reviewed. D/W Hospitalist. Seen on HD this AM. Tolerating HD. Hemodynamically stable on HD Physical Exam Vital Signs: Vital Signs: Last Vital Signs Temp 98.3 F 07/25/20 07:16 Pulse 71 07/25/20 07:16 Resp 18 07/25/20 07:16 BP 121/57 L 07/25/20 07:16 Pulse Ox 99 07/25/20 07:16 Body Mass Index 25.8 Const: General: comfortable Orientation/consciousness: patient oriented x3 Neck: Neck: Yes supple Resp: Auscultation: diminished lung sounds Cardio: Rate: regular rate GI: Palpation (GI): Soft to palpation Neuro: General: patient oriented x3 and moves all extremities Objective Data Labs CBC & Chem 7: 07/23/20 04:34 07/23/20 04:34 Labs: Laboratory Results - last 24 hr 07/24/20 07/25/20 06:41 07:20 POC Glucose 177 H Hepatitis A IgM Ab Nonreactive Microbiology Microbiology Results: Microbiology 07/22/20 Unknown Urine clean catch - Clean Catch Midstream Urine Culture - Final No growth. Assessment & Plan Assessment and plan (1) ESRD (end stage renal disease): Problem details: Access- Permcath this AM by IR this admission Had dialysis yesterday; Getting HD now; Seen on HD; For HD again Tuesday [facility] 2- Patient aware ( Telephone Solicitor Supervisor Dipika York RN- Tel No: [phone]) Could be discharged after HD on tuesday Renal Diet ( Low sodium, Low Phos) ( Has good urine output and normal serum K- So restriction for it for now) Case Management need to touch base with Dipika York( details mentioned above) before D/C Status: Acute Time Spent With Patient Time: Total time spent is greater than 50% in coordination of care (as documented) at patient's floor/unit and/or counseling patient:
[2020-07-25 12:00] VITALS: BP 137/66; PULSE 66; RESP 18; TEMP 37.2; O2SAT 100
--- NOTE | 2020-07-25 12:27 | MHC.CM.PN ---
PLAN IS DISCHARGE TUESDAY FOLLOWING HEMO DIALYSIS. PATEINT AWARE OF OUTPATIENT HD PLANS AND LOCATION IMM 2 IN CHART
[2020-07-25 13:13] LABS: Calcium (PTHI) 7.6 mg/dL (8.6-10.3); PTHI 1730 pg/mL (14-64)
--- NOTE | 2020-07-25 15:27 | HO.PM.IMPN ---
Subjective Subjective Date of Service: 07/25/20 Interval History: Complaining of pain at [facility] site otherwise no other acute issues no nausea no vomiting. ros General no headache, no dizziness , no fever chills. CVS no chest pain, no palpitation. Respiratory no cough, no shortness of breath Gastrointestinal no nausea, no vomiting, no abdominal pain Physical Exam Vital Signs: Vital Signs: Last Vital Signs Temp 98.9 F 07/25/20 12:00 Pulse 66 07/25/20 12:00 Resp 18 07/25/20 12:00 BP 137/66 07/25/20 12:00 Pulse Ox 100 07/25/20 12:00 Body Mass Index 25.8 General no acute distress receiving hemodialysis. Neck supple, no JVD. CVS regular rate rhythm, Respiratory lungs clear to auscultation, no respiratory distress, no wheeze, no rhonchi. Gastrointestinal abdomen soft, nontender, bowel sounds audible, no guarding , no rigidity. Extremities no edema. Neuro nonfocal , speech clear. Skin no rash, color pale Objective Data Current Medications Generic Name Dose Route Start Last Admin Trade Name Freq PRN Reason Stop Dose Admin Acetaminophen 650 mg 07/22/20 16:01 07/24/20 17:46 Acetaminophen 325 Mg Tablet PO 650 mg Q6H PRN Administration Pain, Mild (Pain Scale 1-3) Albuterol/Ipratropium 3 ml 07/25/20 05:32 Albuterol/Iprat 2.5/0.5mg 3 Ml Ampul.Neb INHALE RQ6H PRN Shortness of Breath/Wheezing Heparin Sodium (Porcine) 5,000 unit 07/26/20 06:00 Heparin Sodium,Porcine 5,000 Unit/Ml Vial INTRACATH 07/26/20 06:01 ONCE ONE Non-Formulary Medication 30 mcg 07/22/20 21:00 Calcifediol [Rayaldee] PO BEDTIME [facility] Ondansetron HCl 4 mg 07/22/20 16:01 Ondansetron Hcl 4 Mg/2 Ml Vial IVPUSH Q8H PRN Nausea and Vomiting Oxycodone HCl 5 mg 07/24/20 19:57 07/25/20 08:37 Oxycodone Hcl Immed Release 5 Mg Tablet PO 5 mg Q8H PRN Administration [facility] Consult 1 each 07/22/20 13:37 Consult Rx Perform Med Rec MISCELLANE ONCE PRN Consult order Sodium Chloride 3 ml 07/22/20 16:01 07/25/20 15:04 0.9 % Sodium Chloride Flush 3 Ml Syringe IVFLUSH 3 ml QSHIFT EVELYN Administration Labs CBC & Chem 7: 07/23/20 04:34 07/23/20 04:34 Microbiology Microbiology Results: Microbiology 07/22/20 Unknown Urine clean catch - Clean Catch Midstream Urine Culture - Final No growth. Assessment and Plan (1) Metabolic acidosis: Status: Acute (2) Hypertension: Status: Acute (3) Anemia in chronic kidney disease: Status: Acute (4) ESRD (end stage renal disease): Problem details: Access- Permcath this AM by IR this admission Had dialysis yesterday; Getting HD now; Seen on HD; For HD again Tuesday Outpatient HD spot arranged in [facility] 2- Patient aware ( Crutcher Helper Dipika York RN- Tel No: [phone]) Could be discharged after HD on tuesday Renal Diet ( Low sodium, Low Phos) ( Has good urine output and normal serum K- So restriction for it for now) Case Management need to touch base with Dipika York( details mentioned above) before D/C Status: Acute (5) Renal failure, acute on chronic: Status: Acute Assessment and Plan: 25-year-old man with history of chronic renal disease, appears to be in acute renal disease, likely related to worsening underlying renal disease, dehydration due to volume loss from vomiting. 1. Acute on chronic advance kidney disease. No further bout of nausea ,vomiting, no abdominal pain, status post PermCath placement and hemodialysis, receiving 2nd cycle of hemodialysis will discharged home tomorrow after 3rd hemodialysis for continued outpatient hemodialysis, case discussed with Nephrology Continue oxycodone for pain at site of PermCath. 2. Anemia related to kidney disease. low hematocrit, iron studies are normal, s/p Procrit need continued Procrit as outpatient 3. Positive UA, patient asymptomatic urine culture showed no growth no treatment required. 4. Metabolic acidosis due to advanced renal disease Nephro to adjust bicarb with hemodialysis will need outpatient BMP follow up 5. Deep vein thrombosis prophylaxis with early ambulation.
[2020-07-25 15:40] VITALS: BP 129/62; PULSE 81; RESP 16; TEMP 36.7; O2SAT 98
[2020-07-25 19:18] VITALS: BP 155/80; PULSE 67; RESP 18; TEMP 36.6; O2SAT 99
[2020-07-25 23:46] VITALS: BP 118/90; PULSE 77; RESP 16; TEMP 37.1; O2SAT 100
[2020-07-26 04:00] VITALS: BP 136/61; PULSE 73; RESP 18; TEMP 36.7; O2SAT 98
--- NOTE | 2020-07-26 08:40 | MHC.CM.PN ---
NURSE CARE MANAGEMENT NOTE ELECTRONIC MEDICAL RECORD REVIEWED ALONG WITH CASE DISCUSSED WITH STAFF NURSE AND CALLED OVER TO THE [facility] , FAXED LABS AND DISCHARGE PAperwork and todays hemo- dialysis sheet to them at fax number [phone] dis harged home no services [facility] brett danielle, m-w-f transporation family
--- NOTE | 2020-07-26 09:02 | W.PM.DNNEP ---
Subjective Subjective This patient was seen during dialysis. Interval history: No new issues Physical Exam Vital Signs: Vital Signs: Last Vital Signs Temp 98.0 F 07/26/20 04:00 Pulse 73 07/26/20 04:00 Resp 18 07/26/20 04:00 BP 136/61 07/26/20 04:00 Pulse Ox 98 07/26/20 04:00 Body Mass Index 25.8 Const: General: awake Orientation/consciousness: patient oriented x3 Neck: Neck: Yes supple Resp: Auscultation: no rhonchi Cardio: Palpation: no palpable S4 Heart sounds: no rubs GI: Inspection: No Abdominal wall edema Neuro: General: patient oriented x3 Motor exam (neuro): No Asterixis during motor activity present Assessment & Plan Assessment and plan (1) ESRD (end stage renal disease): Problem details: Access- Permcath by IR this admission Getting HD now; Seen on HD; [facility]- Patient aware ( Clinical Information Systems Director Dipika York RN- Tel No: [phone]) Could be discharged after HD Renal Diet ( Low sodium, Low Phos) ( Has good urine output and normal serum K- So restriction for it for now) Case Management need to touch base with Dipika York( details mentioned above) before D/C Status: Acute Time Spent With Patient Time: Total time spent is greater than 50% in coordination of care (as documented) at patient's floor/unit and/or counseling patient:
[2020-07-26 09:57] VITALS: BP 137/64; PULSE 78; RESP 18; TEMP 36.3; O2SAT 100
[2020-07-26] MEDS: 0.9 % Sodium Chloride Flush 3 ML SYRINGE IVFLUSH (10:20)
[2020-07-26 11:43] VITALS: BP 133/74; PULSE 77; RESP 18; TEMP 36.2; O2SAT 100
--- NOTE | 2020-07-26 11:47 | P.DS_ITS ---
DS: Providers Provider Date of Service: 07/26/20 Date of admission: 07/22/20 16:01 Primary care physician: None Physician Consults: 07/22/20 16:01 Consult to Nephrology Routine Consulting Provider: Trevin Bunch Reason for consultation: INGRID ON CKD Has provider been notified: Yes DS: Diagnosis Discharge Diagnosis (1) ESRD (end stage renal disease): Status: Acute Problem details: Access- Permcath by IR this admission Getting HD now; Seen on HD; Outpatient HD spot arranged in [facility] 2- Patient aware ( [employer] Dipika York RN- Tel No: [phone]) Could be discharged after HD Renal Diet ( Low sodium, Low Phos) ( Has good urine output and normal serum K- So restriction for it for now) Case Management need to touch base with Dipika York( details mentioned above) before D/C DS: Medications Discharge Medications Home Medications: Home Medications Medication Instructions Recorded Confirmed Rayaldee 30 mcg PO BEDTIME 07/22/20 07/22/20 DS: Summary Hospital Course Hospital Course: History of presenting illness 25-year-old gentleman with chronic kidney disease since child word presented to [facility] with symptoms of nausea vomiting of 2 days duration with poor by mouth intake patient had no fever chills no abdominal pain or diarrhea patient was noted to have a creatinine of 14.94 with baseline creatinine of 5, BUN 105 potassium was 4.3 COVID PCR was negative patient blood pressure was 160/81 patient was started on IV fluid and was subsequently admitted to [facility] with a diagnosis of acute on chronic kidney disease Past medical history Hypertension Chronic kidney disease Hospital course Acute on chronic advanced kidney disease. Patient was admitted to medical floor treated with IV fluid with no change in creatinine, patient was evaluated by community health planning director and due to significantly low GFR a PermCath was placed and patient was started on hemodialysis patient received 3 sessions of hemodialysis while in the hospital is now being discharged home to have continued hemodialysis as outpatient. Anemia related to kidney disease patient was noted to have a low hematocrit iron studies are normal patient received 1 dose of Procrit Metabolic acidosis due to advanced renal disease bicarb will be adjusted with hemodialysis. Currently not on antihypertensive medications since blood pressure is stable. Time Spent with Patient Time attestation: Total time spent providing and/or coordinating discharge services: Discharge coordination time: Greater than 30 minutes Physical Exam Vital Signs: Vital Signs: Last Vital Signs Temp 97.2 F 07/26/20 11:43 Pulse 77 07/26/20 11:43 Resp 18 07/26/20 11:43 BP 133/74 07/26/20 11:43 Pulse Ox 100 07/26/20 11:43 Body Mass Index 25.8 General no acute distress receiving hemodialysis. Neck supple, no JVD. Right anterior chest wall PermCath in place, dressing is intact ,no redness, swelling noted CVS regular rate rhythm, Respiratory lungs clear to auscultation, no respiratory distress, no wheeze, no rhonchi. Gastrointestinal abdomen soft, nontender, bowel sounds audible, no guarding , no rigidity. Extremities no edema. Neuro nonfocal , speech clear. Skin no rash, color pale DS: Data Data Completed and Pending Labs on day of discharge: Laboratory Tests 07/22/20 07/22/20 07/22/20 11:38 11:38 11:38 WBC 9.7 RBC 3.28 L Hgb 9.4 L Hct 28.2 L MCV 86.0 MCH 28.7 MCHC 33.3 RDW 13.0 Plt Count 114 L MPV 11.3 Immature Gran % (Auto) 0.6 H Neut % (Auto) 82.7 H Lymph % (Auto) 11.8 L [place] % (Auto) 3.6 Eos % (Auto) 1.0 Baso % (Auto) 0.3 Lymph # (Auto) 1.1 L [place] # (Auto) 0.4 Eos # (Auto) 0.1 Baso # (Auto) 0.0 Abs Immat Gran (auto) 0.06 H Absolute Neuts (auto) 8.0 Absolute Nucleated RBC 0.000 Nucleated RBC % (auto) 0.0 PT INR APTT Hold Blue Top SEE NOTE Sodium 140 Potassium 4.3 Chloride 109 H Carbon Dioxide 15 L Anion Gap 20 BUN 105 H* Creatinine 14.94 H* Estim Creat Clear Calc 7.3 Estimated GFR 4 POC Glucose Random Glucose 95 Calcium 7.0 L Phosphorus Magnesium 2.1 Iron TIBC % Saturation Unsat Iron Binding Ferritin Total Bilirubin 0.5 Direct Bilirubin 0.2 AST 5 ALT 6 Alkaline Phosphatase 86 Total Protein 6.7 Albumin 4.1 Lipase 39 25-OH Vitamin D Total PTH Intact Calcium (PTH Intact) Urine Color Urine Appearance Urine pH Ur Specific [place] Urine Protein Urine Glucose (UA) Urine Ketones Urine Blood Urine Nitrite Ur Leukocyte Esterase Urine RBC Urine WBC Ur Squamous Epith Cells Urine Bacteria Urine Opiates Screen Ur Barbiturates Screen Ur Phencyclidine Scrn Ur Amphetamines Screen U Benzodiazepines Scrn Urine Cocaine Screen U Marijuana (THC) Screen COVID-19 (TYLER) COVID-19 Clin Com Hepatitis A IgM Ab Hep Bs Antigen Hep Bs Antibody Hep B Core Total Ab Hepatitis C Ab (EIA) 07/22/20 07/22/20 07/22/20 11:39 11:39 13:50 WBC RBC Hgb Hct MCV MCH MCHC RDW Plt Count MPV Immature Gran % (Auto) Neut % (Auto) Lymph % (Auto) [place] % (Auto) Eos % (Auto) Baso % (Auto) Lymph # (Auto) [place] # (Auto) Eos # (Auto) Baso # (Auto) Abs Immat Gran (auto) Absolute Neuts (auto) Absolute Nucleated RBC Nucleated RBC % (auto) PT INR APTT Hold Blue Top Sodium Potassium Chloride Carbon Dioxide Anion Gap BUN Creatinine Estim Creat Clear Calc Estimated GFR POC Glucose Random Glucose Calcium Phosphorus Magnesium Iron TIBC % Saturation Unsat Iron Binding Ferritin Total Bilirubin Direct Bilirubin AST ALT Alkaline Phosphatase Total Protein Albumin Lipase 25-OH Vitamin D Total PTH Intact Calcium (PTH Intact) Urine Color STRAW Urine Appearance HAZY Urine pH 6.0 Ur Specific [place] 1.020 Urine Protein 2+ H Urine Glucose (UA) 100 H Urine Ketones NEG Urine Blood 2+ H Urine Nitrite NEG Ur Leukocyte Esterase TRACE H Urine RBC 1-4 Urine WBC 30-49 H Ur Squamous Epith Cells TRACE Urine Bacteria 1+ Urine Opiates Screen Not Detected Ur Barbiturates Screen Not Detected Ur Phencyclidine Scrn Not Detected Ur Amphetamines Screen Not Detected U Benzodiazepines Scrn Not Detected Urine Cocaine Screen Not Detected U Marijuana (THC) Screen Not Detected COVID-19 (TYLER) Negative COVID-19 Clin Com See Note Hepatitis A IgM Ab Hep Bs Antigen Hep Bs Antibody Hep B Core Total Ab Hepatitis C Ab (EIA) 07/23/20 07/23/20 07/24/20 04:34 04:34 06:41 WBC 6.5 RBC 2.90 L Hgb 8.4 L Hct 25.7 L MCV 88.6 MCH 29.0 MCHC 32.7 RDW 13.2 Plt Count 100 L MPV 11.4 Immature Gran % (Auto) 0.2 Neut % (Auto) 68.3 Lymph % (Auto) 24.2 [place] % (Auto) 4.8 Eos % (Auto) 2.2 Baso % (Auto) 0.3 Lymph # (Auto) 1.6 [place] # (Auto) 0.3 Eos # (Auto) 0.1 Baso # (Auto) 0.0 Abs Immat Gran (auto) 0.01 Absolute Neuts (auto) 4.4 Absolute Nucleated RBC 0.000 Nucleated RBC % (auto) 0.0 PT INR APTT Hold Blue Top Sodium 141 Potassium 4.3 Chloride 113 H Carbon Dioxide 14 L Anion Gap 18 BUN 99 H* Creatinine 13.93 H* Estim Creat Clear Calc 7.9 Estimated GFR 4 POC Glucose Random Glucose 80 Calcium 6.8 L Phosphorus 8.3 H Magnesium Iron 83 101 TIBC 212 L 216 L % Saturation 39 47 Unsat Iron Binding 129 115 Ferritin 142 Total Bilirubin Direct Bilirubin AST ALT Alkaline Phosphatase Total Protein Albumin Lipase 25-OH Vitamin D Total 8.5 PTH Intact Calcium (PTH Intact) Urine Color Urine Appearance Urine pH Ur Specific [place] Urine Protein Urine Glucose (UA) Urine Ketones Urine Blood Urine Nitrite Ur Leukocyte Esterase Urine RBC Urine WBC Ur Squamous Epith Cells Urine Bacteria Urine Opiates Screen Ur Barbiturates Screen Ur Phencyclidine Scrn Ur Amphetamines Screen U Benzodiazepines Scrn Urine Cocaine Screen U Marijuana (THC) Screen COVID-19 (TYLER) COVID-19 Clin Com Hepatitis A IgM Ab Hep Bs Antigen Hep Bs Antibody Hep B Core Total Ab Hepatitis C Ab (EIA) 07/24/20 07/24/20 07/24/20 06:41 06:41 06:41 WBC RBC Hgb Hct MCV MCH MCHC RDW Plt Count MPV Immature Gran % (Auto) Neut % (Auto) Lymph % (Auto) [place] % (Auto) Eos % (Auto) Baso % (Auto) Lymph # (Auto) [place] # (Auto) Eos # (Auto) Baso # (Auto) Abs Immat Gran (auto) Absolute Neuts (auto) Absolute Nucleated RBC Nucleated RBC % (auto) PT 13.7 H INR 1.2 H APTT 27.6 Hold Blue Top Sodium Potassium Chloride Carbon Dioxide Anion Gap BUN Creatinine Estim Creat Clear Calc Estimated GFR POC Glucose Random Glucose Calcium Phosphorus Magnesium Iron TIBC % Saturation Unsat Iron Binding Ferritin Total Bilirubin Direct Bilirubin AST ALT Alkaline Phosphatase Total Protein Albumin Lipase 25-OH Vitamin D Total PTH Intact 1730 H Calcium (PTH Intact) 7.6 L Urine Color Urine Appearance Urine pH Ur Specific [place] Urine Protein Urine Glucose (UA) Urine Ketones Urine Blood Urine Nitrite Ur Leukocyte Esterase Urine RBC Urine WBC Ur Squamous Epith Cells Urine Bacteria Urine Opiates Screen Ur Barbiturates Screen Ur Phencyclidine Scrn Ur Amphetamines Screen U Benzodiazepines Scrn Urine Cocaine Screen U Marijuana (THC) Screen COVID-19 (TYLER) COVID-19 Clin Com Hepatitis A IgM Ab Nonreactive Hep Bs Antigen Negative Hep Bs Antibody REACTIVE Hep B Core Total Ab Nonreactive Hepatitis C Ab (EIA) Nonreactive 07/25/20 07:20 WBC RBC Hgb Hct MCV MCH MCHC RDW Plt Count MPV Immature Gran % (Auto) Neut % (Auto) Lymph % (Auto) [place] % (Auto) Eos % (Auto) Baso % (Auto) Lymph # (Auto) [place] # (Auto) Eos # (Auto) Baso # (Auto) Abs Immat Gran (auto) Absolute Neuts (auto) Absolute Nucleated RBC Nucleated RBC % (auto) PT INR APTT Hold Blue Top Sodium Potassium Chloride Carbon Dioxide Anion Gap BUN Creatinine Estim Creat Clear Calc Estimated GFR POC Glucose 177 H Random Glucose Calcium Phosphorus Magnesium Iron TIBC % Saturation Unsat Iron Binding Ferritin Total Bilirubin Direct Bilirubin AST ALT Alkaline Phosphatase Total Protein Albumin Lipase 25-OH Vitamin D Total PTH Intact Calcium (PTH Intact) Urine Color Urine Appearance Urine pH Ur Specific [place] Urine Protein Urine Glucose (UA) Urine Ketones Urine Blood Urine Nitrite Ur Leukocyte Esterase Urine RBC Urine WBC Ur Squamous Epith Cells Urine Bacteria Urine Opiates Screen Ur Barbiturates Screen Ur Phencyclidine Scrn Ur Amphetamines Screen U Benzodiazepines Scrn Urine Cocaine Screen U Marijuana (THC) Screen COVID-19 (TYLER) COVID-19 Clin Com Hepatitis A IgM Ab Hep Bs Antigen Hep Bs Antibody Hep B Core Total Ab Hepatitis C Ab (EIA) Discharge Plan Discharge Patient Disposition: Home, Self-Care Referrals: [facility] [Other] Physician,None [Primary Care Provider] - Discharge Medications: Continued Rayaldee 30 mcg Capsule,Extended Release 24 Hr 30 mcg PO BEDTIME RF: 0 Discontinued sodium bicarbonate 650 mg Tablet 650 mg PO DAILY RF: 0 Discharge Orders: Discharge Order (Routine); Ordered 07/26/20 Ordered By: Kendall Berry Diet: low salt diet Activity on Discharge: As tolerated Stand Alone Forms: Patient Portal Discharge page Visit Report Forms: Patient Portal Discharge page Care Plan Goals: Follow your blood sugar and blood pressure with your primary care physician and Nephrology Health Concerns: End Stage renal disease Plan of Treatment: Out patient hemodialysis 3 times per week Tuesday and Tuesday, follow up with Nephro and PCP follow low sodium and low phosphorous diet
== END 2020-07-26 12:15 | disposition home or self-care (01) | DRG 683 ==
LOC: HO.ED 13:36 → HO.EDOVER 16:19 → HO.S3 07-23 07:18
PROVIDERS: Internal Medicine Nephrology; Nurse Practitioner Acute Care; Physician Assistant; Admitting Provider Hospitalist; Emergency Provider Emergency Medicine; Visit Provider Hospitalist
DX: N17.9 Acute kidney failure, unspecified (principal); N39.0 Urinary tract infection, site not specified; E87.2 Acidosis; I12.0 Hypertensive chronic kidney disease with stage 5 chronic kidney disease or end stage renal disease; N18.6 End stage renal disease; D63.1 Anemia in chronic kidney disease; E11.22 Type 2 diabetes mellitus with diabetic chronic kidney disease; Z20.822 Contact with and (suspected) exposure to COVID-19; Z91.14 Patient's other noncompliance with medication regimen; Z88.6 Allergy status to analgesic agent; E86.0 Dehydration
CPT/HCPCS: 36415; 36597; 76937; 80048; 80076; 80307; 81001; 81003; 82306; 82728; 82947; 83540; 83690; 83735; 83970; 84100; 85025; 85610; 85730; 86704; 86706; 86709; 86803; 87086; 87340; 87635; 90999; 96361; 96365; 96375; 99152; 99153; 99285; J0696; J0885; J2405; J2597

== ENCOUNTER 2021-04-23 15:17 | Inpatient (IN) | payer MEDICAID, SELFPAY ==
[2021-04-23] VITALS (7 sets, daily range): BP systolic 95–126; BP diastolic 29–101; PULSE 118–158; RESP 15–26; TEMP 36.8–39.6; O2SAT 96–100; BMI 26.4
--- NOTE | ~2021-04-23 | US_ITS ---
EXAMINATION: US VENOUS WITH DOPPLER UPPER EXTREMITY, LEFT CLINICAL INFORMATION: Pain at the arteriovenous fistula site. COMPARISON: None TECHNIQUE: Ultrasound of the upper extremity is performed using compression sonography and color and pulse Doppler flow with assessment of augmentation of flow. There is also imaging and Doppler assessment of the jugular and subclavian veins. Spectral analysis with color-flow imaging is performed. FINDINGS: Normal compression is noted throughout the upper extremity including the axillary, brachial, cubital, and radial and ulnar veins. Blood flow is present within the axillary, brachial, cephalic, basilic veins, and within the area of the fistula on color Doppler and spectral Doppler . Pulsatility at the fistula is expected. There is normal flow in the internal jugular and subclavian veins. There is no visible deep or superficial thrombophlebitis. Of note, there is no appreciable blood flow within the radial and ulnar veins on color and spectral Doppler. This is likely related to diminished blood return related to the fistula. No findings of thrombosis. No fluid collections are identified. If the patient's symptoms progress, a followup ultrasound in 5 -7 days might be of value to exclude proximal propagation from a nonvisualized distal arm vein. US/US venous duplex UE LT IMPRESSION: No DVT demonstrated in the left upper extremity. No appreciable abnormalities are identified around the AV fistula on this study.
--- NOTE | ~2021-04-23 | IR_ITS ---
EXAMINATION: TUNNELED CATHETER REMOVAL CLINICAL INFORMATION: Question catheter infection. COMPARISON: None TECHNIQUE/FINDINGS: The skin and soft tissues surrounding the dialysis catheter in the right upper chest were anesthetized with 1% lidocaine plain. Using blunt dissection, the fibrous sheath surrounding the catheter was dissected and the catheter was removed. The catheter tip was sent for culture. 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
--- NOTE | ~2021-04-23 | XR_ITS ---
EXAMINATION: XR CHEST CLINICAL INFORMATION: Shortness of breath. Fever. COMPARISON: None TECHNIQUE: Frontal view of the chest was obtained. FINDINGS: Dual-lumen right-sided central venous catheter with the tip in the region of the right atrium. No pleural effusion or pneumothorax. No airspace consolidation. Unremarkable cardiomediastinal silhouette. XR/XR chest 1V IMPRESSION: No acute cardiopulmonary findings. Dual-lumen right-sided central venous catheter with the tip in the region of the right atrium.
--- NOTE | 2021-04-23 16:14 | PC.NURSE ---
Pt is a dialysis patient with complaints of nausea, vomiting and diarrhea since yesterday and inability to tolerate PO intake. Pt is also c/o chest pain and sob. Pt noted to have a fever of 103.2 upon arrival.
--- NOTE | 2021-04-23 16:19 | ECG_ITS ---
Test Reason : nausea Blood Pressure : / mmHG Vent. Rate : 136 BPM Atrial Rate : 136 BPM P-R Int : 118 ms QRS Dur : 072 ms QT Int : 302 ms P-R-T Axes : 068 025 007 degrees QTc Int : 454 ms Sinus tachycardia Otherwise normal ECG No previous ECGs available Referred By: Rae Damon Electronically Signed By:SRINIVASAN MCFARLAND MD
[2021-04-23 16:39] LABS: MANUAL DIFF FLAG NO
[2021-04-23] MEDS: ondansetron HCL 4 MG/2 ML VIAL IVPUSH ×2 (16:39→23:47)
[2021-04-23 16:40] LABS: Basophils Percent Auto 0.2 % (0-2); Hematocrit 27.5 % (42.0-52.0); Hemoglobin 9.3 g/dl (14.0-18.0); Imm Gran Abs Auto 0.13 X10*3/uL (0.00-0.03); Lymphocytes Absolute Auto 0.5 X10*3/uL (1.2-4.9); Lymphocytes Percent Auto 3.9 % (20-40); Mean Corpuscular HGB Conc 33.8 g/dl (31.0-36.0); Mean Corpuscular Hemoglobin 30.2 pg (27.0-33.0); Mean Corpuscular Volume 89.3 fL (80.0-98.0); Mean Platelet Volume 11.1 fL (9.4-12.4); Monocytes Absolute Auto 0.9 X10*3/uL (0.1-1.2); Monocytes Percent Auto 7.3 % (2-11); Neutrophils Absolute Auto 11.2 x10*3/uL (2.0-8.3); Neutrophils Percent Auto 87.6 % (45-73); Platelet Count 100 X10*3/uL (160-400); Red Blood Count 3.08 X10*6/uL (4.60-5.80); Red Cell Distribution Width 13.1 % (11.0-16.0); White Blood Count 12.8 X10*3/uL (4.8-10.8)
[2021-04-23] MEDS: Famotidine/PF 20 MG/2 ML VIAL IVPUSH (16:40)
[2021-04-23] MEDS: 0.9 % Sodium Chloride 1,000 ML 250 ML IVCONT (16:43)
[2021-04-23 16:53] LABS: Lactic Acid 3.9 mmol/L (0.5-2.0)
--- NOTE | 2021-04-23 16:55 | ED.NAVMDI ---
HPI - Nausea/Vomiting/Diarrhea General Chief complaint: Nausea/Vomiting/Diarrhea Stated complaint: vomiting Time Seen by Provider: 04/23/21 16:09 Source: patient Mode of arrival: ambulatory History of Present Illness HPI Narrative: 25-year-old male with a past medical history of chronic kidney disease on HD, HTN, presenting to the ED complaining of persistent nausea and vomiting x2 days. Admits to associated chills, & inability to tolerate p.o., generalized fatigue/weakness. Also reports mild SOB and CP. Reports missed dialysis today. Denies known fever, cough, dysuria/hematuria, LE edema, suspicious food intake, recent travel, abdominal pain MD elicited complaint: nausea and vomiting Related Data Home Medications Medication Instructions Recorded Confirmed acetaminophen 325 mg tablet 650 mg PO Q6H PRN 04/23/21 04/23/21 cholecalciferol (vitamin D3) 50 1 cap PO DAILY 04/23/21 04/23/21 mcg (2,000 unit) capsule sevelamer carbonate 800 mg tablet 2,400 mg PO TIDAC 04/23/21 04/23/21 warfarin 5 mg tablet 7.5 mg PO DAILY@1800 04/23/21 04/23/21 Allergies Allergy/AdvReac Type Severity Reaction Status Date / Time NSAIDS (Non-Steroidal AdvReac Unknown KIDNEY Verified 07/23/20 14:35 Anti-Inflamma DISEASE [NSAIDS (NON-STEROIDAL ANTI-INFLAMMA] Review of Systems Review of Systems: Constitutional:No Fever, + Chills, + Fatigue, + Malaise ENT/Mouth: No Ear Pain, No Nasal Congestion, No sore throat, No Rhinorrhea, No Swallowing Difficulty Eyes: No Eye Pain, No Swelling, No Redness Cardiovascular: + Chest Pain, + SOB, No Dyspnea on Exertion, No Orthopnea, No Edema, No Palpitations Respiratory: No Cough, No Dyspnea Gastrointestinal: + Nausea, + Vomiting, No Diarrhea, No Constipation, No Abdominal pain, No Hematochezia, No Melena Genitourinary: No Dysuria, No Urinary Frequency, No Hematuria,No Flank Pain Musculoskeletal: No joint pain, No Myalgias, No Joint Swelling Skin: No Skin Lesions, No rash Neuro: + Weakness, No Numbness, No Paresthesias, No Loss of Consciousness, No Dizziness, No Headache Yes all other systems are reviewed and are negative [facility] Past Medical History Attestation statement: The following information was validated with the patient. Medical History (Updated 04/23/21 @ 18:21 by JUAN Quiñones) Chronic kidney disease Hypertension Social History Social History Household Members: Family Housing: House Do you presently have visiting nurse or other home services: No Alcohol intake: never Patient Tobacco Use Status: Tobacco use Unknown Use of substances other than those prescribed or required for medical reasons: Unknown Substance Use Type: Marijuana Advance Directives: No Advance Directives Information Provided: No Advance Directives Date on File: 07/23/20 service: No Current occupational status: unemployed Physical Exam Vital Signs: Vital Signs: Last Vital Signs Temp 99.3 F 04/23/21 18:22 Pulse 130 H 04/23/21 18:22 Resp 16 04/23/21 18:22 BP 105/42 L 04/23/21 18:22 Pulse Ox 99 04/23/21 18:22 Body Mass Index 26.4 Const: General: cooperative and no acute distress Orientation/consciousness: patient oriented x3 Limitations: no limitations HENMT: Head: Yes normal to inspection Ears: hearing grossly normal bilaterally General nose exam: Normal external nose present Face and sinus: Yes normal facial exam Eyes: General: appearance normal, both eyes and all related structures Pupils: Equal, round and reactive pupils present EOM: EOMs intact bilaterally Neck: Neck: Yes normal visual inspection and Yes no meningeal signs Resp: Effort & Inspection: normal respiratory effort Auscultation: clear to auscultation bilaterally, no rhonchi and no wheezes Cardio: Rate: regular rate Heart sounds: S1 normal heart sound present and S2 normal heart sound present GI: Inspection: Yes normal to inspection Palpation (GI): Soft to palpation, nontender, no guarding and not rigid Skin: Rashes: no rashes Wounds: no wounds Neuro: General: patient oriented x3, tone normal, moves all extremities and no meningeal signs Cranial nerves: Yes Equal, round and reactive pupils present Extrem: General: Yes normal to inspection and Yes no pedal edema Course Course Course Narrative: -0305--leukocytosis of 12.8. H&H stable. Lactic acidosis of 3.9 likely from kidney dysfunction/dehydration/ketoacidosis -initial troponin 20.5 > will obtain 3 over repeat -acute on chronic CKD with BUN of 52, creatinine 15.24 > nephrology paged. Anion gap of 25 likely from renal dysfunction. XR chest 1V IMPRESSION: No acute cardiopulmonary findings. ? Dual-lumen right-sided central venous catheter with the tip in the region of the right atrium. -1839--spoke to Nephrology, Dr. Michaud recommended admission, plan to take at catheter tomorrow due to suspected infection MDM - Nausea/Vomiting/Diarrhea MDM Narrative Medical decision making narrative: 25-year-old male with a past medical history of chronic kidney disease on HD, HTN, presenting to the ED complaining of persistent nausea and vomiting x2 days. Admits to associated chills, & inability to tolerate p.o., generalized fatigue/weakness. Also reports mild SOB and CP. On exam febrile, tachycardic, abdomen soft/nontender, lungs CTA, concern for metabolic/infectious etiology vs dehydration vs infected catheter vs gastroenteritis. Rule out ACS & fluid overload although patient does not clinically appear overloaded. Low concern for appendicitis/diverticulitis/cholecystitis or pancreatitis without tenderness on exam Plan: EKG, labs, UA, CXR, IVF, lactic/blood cultures, empiric antibiotics, anticipated admission Medical Records Attestation: I reviewed the patient's medical records. Lab Data Attestation: I reviewed the patient's lab results. Result diagrams: 04/23/21 16:34 04/23/21 16:34 Labs: Lab Results 04/23/21 04/23/21 04/23/21 Range/Units 16:34 16:34 16:34 WBC 12.8 H (4.8-10.8) X10*3/uL RBC 3.08 L (4.60-5.80) X10*6/uL Hgb 9.3 L (14.0-18.0) g/dl Hct 27.5 L (42.0-52.0) % MCV 89.3 (80.0-98.0) fL MCH 30.2 (27.0-33.0) pg MCHC 33.8 (31.0-36.0) g/dl RDW 13.1 (11.0-16.0) % Plt Count 100 L (160-400) X10*3/uL MPV 11.1 (9.4-12.4) fL Immature Gran % (Auto) 1.0 H (0.0-0.4) % Neut % (Auto) 87.6 H (45-73) % Lymph % (Auto) 3.9 L (20-40) % [place] % (Auto) 7.3 (2-11) % Eos % (Auto) 0.0 (0-4) % Baso % (Auto) 0.2 (0-2) % Lymph # (Auto) 0.5 L (1.2-4.9) X10*3/uL [place] # (Auto) 0.9 (0.1-1.2) X10*3/uL Eos # (Auto) 0.0 (0.0-0.4) X10*3/uL Baso # (Auto) 0.0 (0.0-0.2) X10*3/uL Abs Immat Gran (auto) 0.13 H (0.00-0.03) X10*3/uL Absolute Neuts (auto) 11.2 H (2.0-8.3) x10*3/uL Absolute Nucleated RBC 0.000 (0.0-0.012) X10*3/uL Nucleated RBC % (auto) 0.0 (0.0-0.2) /100WBC Sodium 137 (135-145) mmol/L Potassium 4.3 (3.3-5.1) mmol/L Chloride 90 L D (96-108) mmol/L Carbon Dioxide 26 (22-29) mmol/L Anion Gap 25 H (12-20) BUN 52 H (9-16) mg/dL Creatinine 15.24 H* (0.5-1.4) mg/dL Estim Creat Clear Calc 7.2 Estimated GFR 4 Random Glucose 146 H D (60-115) mg/dL Lactic Acid 3.9 H* (0.5-2.0) mmol/L Calcium 10.1 D (8.4-10.2) mg/dL Magnesium 1.9 (1.6-2.6) mg/dL Total Bilirubin 1.3 H (0.0-1.0) mg/dL Direct Bilirubin 0.3 (0.0-0.5) mg/dL AST 5 (5-37) U/L ALT 6 (0-40) U/L Alkaline Phosphatase 84 (39-117) U/L Troponin I High Sens (<3.5-35.0) ng/L B-Natriuretic Peptide (<100) pg/mL Total Protein 8.1 H D (6.5-8.0) g/dL Albumin 4.9 (3.5-5.0) g/dL Lipase 26 (8-78) U/L COVID-19 (TYLER) (Negative) COVID-19 Clin Com 04/23/21 04/23/21 04/23/21 Range/Units 16:34 16:34 17:27 WBC (4.8-10.8) X10*3/uL RBC (4.60-5.80) X10*6/uL Hgb (14.0-18.0) g/dl Hct (42.0-52.0) % MCV (80.0-98.0) fL MCH (27.0-33.0) pg MCHC (31.0-36.0) g/dl RDW (11.0-16.0) % Plt Count (160-400) X10*3/uL MPV (9.4-12.4) fL Immature Gran % (Auto) (0.0-0.4) % Neut % (Auto) (45-73) % Lymph % (Auto) (20-40) % [place] % (Auto) (2-11) % Eos % (Auto) (0-4) % Baso % (Auto) (0-2) % Lymph # (Auto) (1.2-4.9) X10*3/uL [place] # (Auto) (0.1-1.2) X10*3/uL Eos # (Auto) (0.0-0.4) X10*3/uL Baso # (Auto) (0.0-0.2) X10*3/uL Abs Immat Gran (auto) (0.00-0.03) X10*3/uL Absolute Neuts (auto) (2.0-8.3) x10*3/uL Absolute Nucleated RBC (0.0-0.012) X10*3/uL Nucleated RBC % (auto) (0.0-0.2) /100WBC Sodium (135-145) mmol/L Potassium (3.3-5.1) mmol/L Chloride (96-108) mmol/L Carbon Dioxide (22-29) mmol/L Anion Gap (12-20) BUN (9-16) mg/dL Creatinine (0.5-1.4) mg/dL Estim Creat Clear Calc Estimated GFR Random Glucose (60-115) mg/dL Lactic Acid (0.5-2.0) mmol/L Calcium (8.4-10.2) mg/dL Magnesium (1.6-2.6) mg/dL Total Bilirubin (0.0-1.0) mg/dL Direct Bilirubin (0.0-0.5) mg/dL AST (5-37) U/L ALT (0-40) U/L Alkaline Phosphatase (39-117) U/L Troponin I High Sens 20.5 22.4 (<3.5-35.0) ng/L B-Natriuretic Peptide 25 (<100) pg/mL Total Protein (6.5-8.0) g/dL Albumin (3.5-5.0) g/dL Lipase (8-78) U/L COVID-19 (TYLER) Negative (Negative) COVID-19 Clin Com See Note ECG Data Attestation: I personally reviewed and interpreted this ECG as follows: ECG interpretation date: 04/23/21 ECG interpretation time: 16:35 Interpretation: EKG sinus tachycardia at a rate of 136 QRS 72. QTC 454 Nonischemic/no STEMI Critical Care Time Critical Care Time Critical Care Time: Yes Total Critical Care Time: 36 Attestation: > 36 minutes critical care time was spent evaluating patient, perforeming chart review, reviewing labs, reviewing imaging, speaking with consultants, and re-evaluating patient. Discharge Plan Discharge Clinical Impression: Bacteremia, Renal failure, acute on chronic, Nausea & vomiting Patient Disposition: Admitted As Inpatient
[2021-04-23 16:56] LABS: Alanine Aminotransferase 6 U/L (0-40); Albumin Level 4.9 g/dL (3.5-5.0); Alkaline Phosphatase 84 U/L (39-117); Aspartate Amino Transferase 5 U/L (5-37); Bilirubin Direct 0.3 mg/dL (0.0-0.5); Bilirubin Total 1.3 mg/dL (0.0-1.0); Blood Urea Nitrogen 52 mg/dL (9-16); Calcium 10.1 mg/dL (8.4-10.2); Glucose Random 146 mg/dL (60-115); Lipase 26 U/L (8-78); Magnesium 1.9 mg/dL (1.6-2.6); Total Protein 8.1 g/dL (6.5-8.0)
--- NOTE | 2021-04-23 16:56 | PHA.MEDREC ---
Pharmacy Consult ? Medication Reconciliation Pharmacy has completed the medication reconciliation. There are no remarkable issues for provider's attention. Ijeoma Bagley, TremaineD
[2021-04-23 17:00] LABS: B Type Natriuretic Peptide 25 pg/mL (<100); Troponin-I High Sensitivity 20.5 ng/L (<3.5-35.0)
[2021-04-23 17:12] LABS: Anion Gap 25 (12-20); Carbon Dioxide 26 mmol/L (22-29); Chloride 90 mmol/L (96-108); Creatinine Clr Calc Pharmacy 7.2; Estimated Glomerular Filt Rate 4; Potassium 4.3 mmol/L (3.3-5.1); Sodium 137 mmol/L (135-145)
[2021-04-23] MEDS: Acetaminophen 325 MG TABLET 650 MG PO ×2 (17:13→23:47)
[2021-04-23] MEDS: Acetaminophen 325 MG TABLET PO (17:13)
[2021-04-23] MEDS: Magnesium Hydrox/Alum Hydrox 30 ML ORAL.SUSP PO (17:14)
[2021-04-23] MEDS: cefTRIAXone sodium 1 GM in 0.9 % Sodium Chloride 50 ML IV (17:30)
[2021-04-23 17:34] LABS: COVID-19 Test Negative (Negative)
[2021-04-23 17:54] LABS: Troponin-I High Sensitivity 22.4 ng/L (<3.5-35.0)
--- NOTE | 2021-04-23 18:10 | PC.NURSE ---
PT SLEEPING AND OXYGEN DROPPED INTO THE 70'S, PT PLACED ON 2L NC WITH GOOD REOXYGENTATION
[2021-04-23] MEDS: vancomycin HCL 1,250 MG in 0.9 % Sodium Chloride 250 ML 166.67 MG IV (18:22)
[2021-04-23 18:37] LABS: Reflex Lactate? Lactic Acid Added
--- NOTE | 2021-04-23 19:48 | PC.NURSE ---
Pt alert and oriented x4, calm and cooperative. Pt denies pain. Pt denies N/V at this time. IV intact. Vitals stable, afebrile at this time. Left forearm fistula noted to have strong bruit and thrill. Pt resting in stretcher without issues, will continue to monitor.
--- NOTE | 2021-04-23 22:36 | PM.IMHP ---
History of Present Illness Date of Service: 04/23/21 Chief Complaint: N/V 25-year-old male with past medical history of ESRD on dialysis, hypertension presents the hospital with complaints of nausea vomiting. Patient reports that he has been feeling on 1 for few days, started having nausea and vomiting yesterday constant, intractable. Decided to come to the hospital. On arrival to the ED patient was found to be febrile with a temperature of 103.2?, tachycardic with heart rate of 140. Patient reports that he does do dialysis 5 days a week, twice through his Port-A-Cath hand have had a new fistula that he is not a trend to even sit 3 days away. He reports that he did not have dialysis done yesterday because he was feeling too ill. Patient denies having any chest pain, no abdominal pain, no diarrhea constipation, he still produces some urine but has no urgency frequency or dysuria. Denies having any numbness weakness or tingling. Other vitals are significant for BP of 104/29 Labs are significant for WBC count of 12.8, hemoglobin of 9.3, BUN of 72, creatinine of 15.2, lactic acid of 3.9, No acute cardiopulmonary finding, dual lumen right-sided central venous catheter with the tip in the region of the right atrium Review of Systems Review of Systems: Yes all other systems are reviewed and are negative [facility] Medical History (Updated 04/24/21 @ 07:12 by Char Aguilera MD) AV fistula Chronic kidney disease Hypertension Pertinent family history: No pertinent history Social History Household Members: Family Housing: House Do you presently have visiting nurse or other home services: No Alcohol intake: never Patient Tobacco Use Status: Tobacco use Unknown Use of substances other than those prescribed or required for medical reasons: Unknown Substance Use Type: Marijuana Advance Directives: No Advance Directives Information Provided: No Advance Directives Date on File: 07/23/20 service: No Current occupational status: unemployed Meds Allergies Allergy/AdvReac Type Severity Reaction Status Date / Time NSAIDS (Non-Steroidal AdvReac Unknown KIDNEY Verified 07/23/20 14:35 Anti-Inflamma DISEASE [NSAIDS (NON-STEROIDAL ANTI-INFLAMMA] Active Medications: Current Medications Pharmacy Consult (Consult Rx Perform Med Rec) 1 each MISCELLANE ONCE PRN PRN Reason: Consult order Pharmacy Consult (Consult Rx Vancomycin Dosing) 1 each MISCELLANE DAILY PRN PRN Reason: Consult order Home Medications Medication Instructions Recorded Confirmed Last Taken Type acetaminophen 325 mg tablet 650 mg PO Q6H PRN 04/23/21 04/23/21 Unknown History cholecalciferol (vitamin D3) 50 1 cap PO DAILY 04/23/21 04/23/21 04/22/21 History mcg (2,000 unit) capsule sevelamer carbonate 800 mg tablet 2,400 mg PO TIDAC 04/23/21 04/23/21 04/22/21 History warfarin 5 mg tablet 7.5 mg PO DAILY@1800 04/23/21 04/23/21 04/22/21 History Physical Exam Vital Signs and Narrative: Vital Signs: Last Vital Signs Temp 98.8 F 04/23/21 19:15 Pulse 118 H 04/23/21 19:15 Resp 15 04/23/21 19:15 BP 95/50 L 04/23/21 19:15 Pulse Ox 99 04/23/21 19:15 Body Mass Index 26.4 Const: General: cooperative and no acute distress Orientation/consciousness: patient oriented x3 Eyes: General: appearance normal, both eyes and all related structures Resp: Effort & Inspection: normal respiratory effort Auscultation: clear to auscultation bilaterally Cardio: Rate: regular rate Rhythm: regular rhythm GI: Palpation (GI): Soft to palpation Auscultation: normal bowel sounds Skin: Other: Port in right chest General skin exam: no rashes or lesions noted Neuro: General: patient oriented x3 Cognition (Neuro): normal cognition Extrem: Other: left AV fistula, no erythema, no tenderness General: Yes normal to inspection Results Labs CBC and Chem 7: 04/23/21 16:34 04/24/21 05:57 Labs: Laboratory Results - last 24 hr 04/23/21 04/23/21 04/23/21 16:34 16:34 16:34 MCV 89.3 MCH 30.2 MCHC 33.8 RDW 13.1 Plt Count 100 L MPV 11.1 Immature Gran % (Auto) 1.0 H Neut % (Auto) 87.6 H Lymph % (Auto) 3.9 L [place] % (Auto) 7.3 Eos % (Auto) 0.0 Baso % (Auto) 0.2 Lymph # (Auto) 0.5 L [place] # (Auto) 0.9 Eos # (Auto) 0.0 Baso # (Auto) 0.0 Abs Immat Gran (auto) 0.13 H Absolute Neuts (auto) 11.2 H Absolute Nucleated RBC 0.000 Nucleated RBC % (auto) 0.0 Anion Gap 25 H Estim Creat Clear Calc 7.2 Estimated GFR 4 Random Glucose 146 H D Lactic Acid 3.9 H* Lactic Acid Fup @ 2Hr Calcium 10.1 D Magnesium 1.9 Total Bilirubin 1.3 H Direct Bilirubin 0.3 AST 5 ALT 6 Alkaline Phosphatase 84 Troponin I High Sens B-Natriuretic Peptide Total Protein 8.1 H D Albumin 4.9 Lipase 26 COVID-19 ([facility]) COVID-[place] Com 04/23/21 04/23/21 04/23/21 16:34 16:34 17:27 MCV MCH MCHC RDW Plt Count MPV Immature Gran % (Auto) Neut % (Auto) Lymph % (Auto) [place] % (Auto) Eos % (Auto) Baso % (Auto) Lymph # (Auto) [place] # (Auto) Eos # (Auto) Baso # (Auto) Abs Immat Gran (auto) Absolute Neuts (auto) Absolute Nucleated RBC Nucleated RBC % (auto) Anion Gap Estim Creat Clear Calc Estimated GFR Random Glucose Lactic Acid Lactic Acid Fup @ 2Hr Calcium Magnesium Total Bilirubin Direct Bilirubin AST ALT Alkaline Phosphatase Troponin I High Sens 20.5 22.4 B-Natriuretic Peptide 25 Total Protein Albumin Lipase COVID-19 ([facility]) Negative COVID-[place] Com See Note 04/23/21 19:24 MCV MCH MCHC RDW Plt Count MPV Immature Gran % (Auto) Neut % (Auto) Lymph % (Auto) [place] % (Auto) Eos % (Auto) Baso % (Auto) Lymph # (Auto) [place] # (Auto) Eos # (Auto) Baso # (Auto) Abs Immat Gran (auto) Absolute Neuts (auto) Absolute Nucleated RBC Nucleated RBC % (auto) Anion Gap Estim Creat Clear Calc Estimated GFR Random Glucose Lactic Acid Lactic Acid Fup @ 2Hr 2.0 Calcium Magnesium Total Bilirubin Direct Bilirubin AST ALT Alkaline Phosphatase Troponin I High Sens B-Natriuretic Peptide Total Protein Albumin Lipase COVID-19 ([facility]) COVID-19 [employer] Com Imaging Radiologist's Impressions: Impressions Chest X-Ray 04/23/21 16:19 IMPRESSION: No acute cardiopulmonary findings. Dual-lumen right-sided central venous catheter with the tip in the region of the right atrium. Assessment and Plan (1) Sepsis: Status: Acute (2) Nausea & vomiting: Status: Acute (3) ESRD (end stage renal disease): Status: Acute 25-year-old male with past medical history of says ESRD on dialysis presents to the hospital with nausea vomiting found to have sepsis # sepsis - possibly secondary to dialysis port, has no evidence of pneumonia, no urinary symptoms - has tachycardia,febrile, leukocytosis with lactic acidosis - will start him on IV antibiotic - nephrology is Planning for port removal today - follow cultures # nausea vomiting - most likely secondary to acute infection - has not resolve - supportive measures - antiemetic p.r.n. # ESRD on dialysis - nephrology consult - dialysis in a.m. # hypertension - patient hypotensive - monitor blood pressure # patient on Coumadin for unclear reasons - will continue DVT prophylaxis: Coumadin Quality Stroke Does the patient have a stroke diagnosis?: No VTE Prior VTE?: No VTE Risk Level:: Medical - moderate - high VTE Device Contraindication: Treatment Not Indicated VTE Drug Contraindication: N/A - Med Ordered
--- NOTE | 2021-04-23 23:10 | ECG_ITS ---
Test Reason : CHEST PAIN Blood Pressure : / mmHG Vent. Rate : 173 BPM Atrial Rate : 173 BPM P-R Int : 086 ms QRS Dur : 064 ms QT Int : 276 ms P-R-T Axes : 058 022 -04 degrees QTc Int : 468 ms Sinus tachycardia with short MA ST depression in Inferior leads Lateral leads Abnormal ECG When compared with ECG of 23-APR-2021 16:35, ST now depressed in Inferior leads ST now depressed in Anterolateral leads Heart rate has increased Referred By: Rae Damon Electronically Signed By:SRINIVASAN MCFARLAND MD
[2021-04-24] MEDS: cefEPime HCl 1 GM in 0.9 % Sodium Chloride 50 ML IV (00:50)
[2021-04-24] MEDS: 0.9 % Sodium Chloride Flush 3 ML SYRINGE IVFLUSH (00:54)
[2021-04-24] MEDS: Lactated Ringers 1,000 ML 100 ML IVCONT ×3 (01:31→18:23)
--- NOTE | 2021-04-24 03:26 | PC.NURSE ---
assuming care for this patient, patient sleeping with eyes closed, no distress noted, no facial grimace or guarding. awaiting room assignment for admission.
--- NOTE | 2021-04-24 05:48 | PC.NURSE ---
LAB REPORTING THAT PATIENTS BLOOD CULTURES ALL 4 BOTTLES CAME BACK POSITIVE FOR GRAM + COCCI IN CLUSTERS. HOSPITALIST NOTIFIED.
[2021-04-24 06:29] LABS: INTERNATIONAL NORM RATIO 1.5 (0.9-1.1); Prothrombin Time 16.9 SEC (9.9-13.0)
[2021-04-24 06:45] VITALS: BP 108/56; PULSE 107; RESP 16; O2SAT 98
[2021-04-24 06:46] LABS: Alanine Aminotransferase 7 U/L (0-40); Albumin Level 3.8 g/dL (3.5-5.0); Alkaline Phosphatase 63 U/L (39-117); Anion Gap 21 (12-20); Aspartate Amino Transferase 8 U/L (5-37); Blood Urea Nitrogen 72 mg/dL (9-16); Calcium 8.6 mg/dL (8.4-10.2); Carbon Dioxide 26 mmol/L (22-29); Chloride 96 mmol/L (96-108); Creatinine Clr Calc Pharmacy 6.5; Estimated Glomerular Filt Rate 4; Glucose Random 134 mg/dL (60-115); Potassium 4.6 mmol/L (3.3-5.1); Sodium 138 mmol/L (135-145); Total Protein 6.4 g/dL (6.5-8.0)
[2021-04-24 07:55] VITALS: BP 110/62; PULSE 107; RESP 16; TEMP 36.8; O2SAT 99
--- NOTE | 2021-04-24 07:57 | PC.NURSE ---
No complaints at this time. sTATES dialysis is 5x/week. missed it yesterday. skin pwd. was sleeping at RN arrival. No complaints at this time ST on monitor. fluids infusing. aware of plan of care.
[2021-04-24] MEDS: Sevelamer Carbonate Tablet 800 MG TABLET 2400 MG PO ×2 (07:59→12:42)
--- NOTE | 2021-04-24 08:01 | PC.NURSE ---
states hes feeling better. no n/v
--- NOTE | 2021-04-24 09:33 | PC.NURSE ---
Pt volited 200ml bile tinged stomach contents. reports feeling fine afterwards and declined nause meds. awaits dialysis.
[2021-04-24] MEDS: Cholecalciferol (Vitamin D3) 25 MCG TABLET 50 MCG PO (09:43)
[2021-04-24 10:35] VITALS: BP 120/42; PULSE 111; RESP 16; TEMP 36.9; O2SAT 97
--- NOTE | 2021-04-24 10:36 | PC.NURSE ---
renata dang at bedside
--- NOTE | 2021-04-24 11:35 | P.CONNP_ITS ---
History of Present Illness Reason for Consult Consult date: 04/24/21 Reason for consult: ESRD Chief Complaint Chief complaint: vomiting History of Present Illness Narrative: 25-year-old male with past medical history of ESRD on dialysis, hypertension presents the hospital with complaints of nausea and vomiting.? On arrival to the ED patient was found to be febrile with a temperature of 103.2?, tachycardic with heart rate of 140.? Patient reports that he does do dialysis 5 days a week. He has a Perm Cath hand also has a new functioning fistula. He still produces some urine but has no urgency frequency or dysuria.? Labs are significant for WBC count of 12.8, hemoglobin of 9.3, BUN of 72, creatinine of 15.2, lactic acid of 3.9. Nephrology was consulted to assist in his clinical care during his current hospital stay Review of Systems Review of Systems Yes all other systems are reviewed and are negative PMFSH Past Medical History Medical History (Updated 04/24/21 @ 07:12 by Char Aguilera MD) AV fistula Chronic kidney disease Hypertension Social History Social History Household Members: Family Housing: House Do you presently have visiting nurse or other home services: No Alcohol intake: never Patient Tobacco Use Status: Tobacco use Unknown Use of substances other than those prescribed or required for medical reasons: Unknown Substance Use Type: Marijuana Advance Directives: No Advance Directives Information Provided: No Advance Directives Date on File: 07/23/20 service: No Current occupational status: unemployed Meds Allergies Allergy/AdvReac Type Severity Reaction Status Date / Time NSAIDS (Non-Steroidal AdvReac Unknown KIDNEY Verified 07/23/20 14:35 Anti-Inflamma DISEASE [NSAIDS (NON-STEROIDAL ANTI-INFLAMMA] Active Medications: Current Medications Acetaminophen (Acetaminophen 325 Mg Tablet) 650 mg PO Q6H PRN PRN Reason: Pain, Mild (Pain Scale 1-3) Cefepime HCl 1 gm/ Sodium (Chloride) 50 mls @ 100 mls/hr IV Q24H [facility] Last Infusion: 04/24/21 01:42 Dose: Infused Documented by: Lactated Ringer's (Lr) 1,000 mls @ 100 mls/hr IVCONT .Q10H [facility] Last Admin: 04/24/21 09:43 Dose: 100 mls/hr Documented by: Lidocaine HCl (Lidocaine Hcl 1 % Mpf 2 Ml Ampul) 0.5 ml SUBCUT ONCE ONE Stop: 04/25/21 06:30 Ondansetron HCl (Ondansetron Hcl 4 Mg/2 Ml Vial) 4 mg IVPUSH Q8H PRN PRN Reason: Nausea and Vomiting Last Admin: 04/23/21 23:47 Dose: 4 mg Documented by: Pharmacy Consult (Consult Rx Perform Med Rec) 1 each MISCELLANE ONCE PRN PRN Reason: Consult order Pharmacy Consult (Consult Rx Vancomycin Dosing) 1 each MISCELLANE DAILY PRN PRN Reason: Consult order Sevelamer Carbonate (Sevelamer Carbonate Tablet 800 Mg Tablet) 2,400 mg PO TIDAC [facility] Last Admin: 04/24/21 07:59 Dose: 2,400 mg Documented by: Sodium Chloride (0.9 % Sodium Chloride Flush 3 Ml Sy[facility]) [facility] Admin: 04/24/21 07:59 Dose: Not Given Documented by: Vitamin D (Cholecalciferol (Vitamin D3) 25 Mcg Tablet) 50 mcg PO DAILY [facility] Last Admin: 04/24/21 09:43 Dose: 50 mcg Documented by: Warfarin Sodium (Warfarin Sodium 7.5 Mg Tablet) 7.5 mg PO DAILY@1800 [facility] Home Medications Medication Instructions Recorded Confirmed Last Taken Type acetaminophen 325 mg tablet 650 mg PO Q6H PRN 04/23/21 04/23/21 Unknown History cholecalciferol (vitamin D3) 50 1 cap PO DAILY 04/23/21 04/23/21 04/22/21 History mcg (2,000 unit) capsule sevelamer carbonate 800 mg tablet 2,400 mg PO TIDAC 04/23/21 04/23/21 04/22/21 History warfarin 5 mg tablet 7.5 mg PO DAILY@1800 04/23/21 04/23/21 04/22/21 History Physical Exam Vital Signs: Last Vital Signs Temp 98.5 F 04/24/21 10:35 Pulse 111 H 04/24/21 10:35 Resp 16 04/24/21 10:35 BP 120/42 L 04/24/21 10:35 Pulse Ox 97 04/24/21 10:35 Body Mass Index 26.4 Const General: no acute distress Orientation/consciousness: patient oriented x3 HENMT Head: Yes normocephalic Eyes EOM: EOMs intact bilaterally Neck Neck: Yes supple Resp Auscultation: diminished lung sounds Cardio Jugular venous distension: no JVD Rate: regular rate Rhythm: regular rhythm GI Palpation (GI): Soft to palpation Neuro General: patient oriented x3 and moves all extremities Results Lab Results Result Diagrams: 04/23/21 16:34 04/24/21 05:57 Lab results: Chemistry 04/23/21 04/24/21 16:34 05:57 Sodium 137 138 Potassium 4.3 4.6 Carbon Dioxide 26 26 BUN 52 H 72 H Creatinine 15.24 H* 16.70 H* Calcium 10.1 D 8.6 D Hematology 04/23/21 16:34 WBC 12.8 H Hgb 9.3 L Plt Count 100 L Assessment and Plan (1) ESRD (end stage renal disease): Status: Acute 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 Has a permcath Also has a functioning AVF Shall D/C permcath by IR today Shall dialyze him today and tomorrow 2 Gram K, 2 Gram Na, phosphorus restricted diet with fluid restriction 1.5 L/24 hours No Ringer lactate ; Can get Normal Saline bolus if needed Phoshorus binders with meals If going to get Vanco, needs to get it after HD Shall closely follow up Procedures Date of Service Date of Service: 04/24/21
--- NOTE | 2021-04-24 12:24 | PC.NURSE ---
IR was present and pulled cath. portion is at bedside for culture. Pt ambulatory to [facility]> awaits dialysis.
--- NOTE | 2021-04-24 15:12 | PC.NURSE ---
rn to rn with julio
--- NOTE | 2021-04-24 15:17 | PC.NURSE ---
Dialysis aware to bring patient to [phone] when done. Belongings will be forwarded there.
--- NOTE | 2021-04-24 16:04 | HO.PM.IMPN ---
Subjective Subjective Date of Service: 04/24/21 Interval History: Being followed for line sepsis, feels cold and chilly, less nauseous,no vomiting since admission, denies headache lightheadedness or dizziness. Review of Systems General no headache, no dizziness ,+ chills. CVS no chest pain, no palpitation. Respiratory no cough, no sob. Gastrointestinal + nausea, no vomiting, no abdominal pain Review of Systems: Yes all other systems are reviewed and are negative Physical Exam Vital Signs: Vital Signs: Last Vital Signs Temp 98.5 F 04/24/21 10:35 Pulse 111 H 04/24/21 10:35 Resp 16 04/24/21 10:35 BP 120/42 L 04/24/21 10:35 Pulse Ox 97 04/24/21 10:35 Body Mass Index 26.4 General awake alert x3,no acute distress. Neck supple, no JVD. CVS regular rate rhythm, Respiratory lungs clear to auscultation, no respiratory distress, no wheeze, no rhonchi. Gastrointestinal abdomen soft, nontender, bowel sounds audible, no guarding , no rigidity. Extremities no edema. Left upper extremity fistula in place Neuro nonfocal Skin no rash, portaCath right anterior chest, no redness, no swelling Appropriate affect Objective Data Active Medications Acetaminophen (Acetaminophen 325 Mg Tablet) 650 mg PO Q6H PRN PRN Reason: Pain, Mild (Pain Scale 1-3) Cefepime HCl 1 gm/ Sodium (Chloride) 50 mls @ 100 mls/hr IV Q24H [facility] Last Infusion: 04/24/21 01:42 Dose: 0 mls/hr Documented by: REDDY Lactated Ringer's (Lr) 1,000 mls @ 100 mls/hr IVCONT .Q10H [facility] Last Infusion: 04/24/21 15:15 Dose: 0 mls/hr Documented by: BONNY Lidocaine HCl (Lidocaine Hcl 1 % Mpf 2 Ml Ampul) 0.5 ml SUBCUT ONCE ONE Stop: 04/25/21 06:30 Ondansetron HCl (Ondansetron Hcl 4 Mg/2 Ml Vial) 4 mg IVPUSH Q8H PRN PRN Reason: Nausea and Vomiting Last Admin: 04/23/21 23:47 Dose: 4 mg Documented by: SHAHID Pharmacy Consult (Consult Rx Perform Med Rec) 1 each MISCELLANE ONCE PRN PRN Reason: Consult order Pharmacy Consult (Consult Rx Vancomycin Dosing) 1 each MISCELLANE DAILY PRN PRN Reason: Consult order Sevelamer Carbonate (Sevelamer Carbonate Tablet 800 Mg Tablet) 2,400 mg PO TIDAC [facility] Last Admin: 04/24/21 12:42 Dose: 2,400 mg Documented by: KATHY Sodium Chloride (0.9 % Sodium Chloride Flush 3 Ml Syringe) 3 ml IVFLUSH QSHIFT [facility] Last Admin: 04/24/21 07:59 Dose: Not Given Documented by: KATHY Non-Admin Reason: Med Not Available Vitamin D (Cholecalciferol (Vitamin D3) 25 Mcg Tablet) 50 mcg PO DAILY [facility] Last Admin: 04/24/21 09:43 Dose: 50 mcg Documented by: KATHY Warfarin Sodium (Warfarin Sodium 7.5 Mg Tablet) 7.5 mg PO DAILY@1800 [facility] Labs CBC & Chem 7: 04/23/21 16:34 04/24/21 05:57 Labs: Laboratory Results - last 24 hr 04/23/21 04/23/21 04/23/21 16:34 16:34 16:34 MCV 89.3 MCH 30.2 MCHC 33.8 RDW 13.1 Plt Count 100 L MPV 11.1 Immature Gran % (Auto) 1.0 H Neut % (Auto) 87.6 H Lymph % (Auto) 3.9 L [place] % (Auto) 7.3 Eos % (Auto) 0.0 Baso % (Auto) 0.2 Lymph # (Auto) 0.5 L [place] # (Auto) 0.9 Eos # (Auto) 0.0 Baso # (Auto) 0.0 Abs Immat Gran (auto) 0.13 H Absolute Neuts (auto) 11.2 H Absolute Nucleated RBC 0.000 Nucleated RBC % (auto) 0.0 PT INR Anion Gap 25 H Estim Creat Clear Calc 7.2 Estimated GFR 4 Random Glucose 146 H D Lactic Acid 3.9 H* Lactic Acid Fup @ 2Hr Calcium 10.1 D Magnesium 1.9 Total Bilirubin 1.3 H Direct Bilirubin 0.3 AST 5 ALT 6 Alkaline Phosphatase 84 Troponin I High Sens B-Natriuretic Peptide Total Protein 8.1 H D Albumin 4.9 Lipase 26 COVID-19 ([facility]) COVID-19 Clin Com 04/23/21 04/23/21 04/23/21 16:34 16:34 17:27 MCV MCH MCHC RDW Plt Count MPV Immature Gran % (Auto) Neut % (Auto) Lymph % (Auto) [place] % (Auto) Eos % (Auto) Baso % (Auto) Lymph # (Auto) [place] # (Auto) Eos # (Auto) Baso # (Auto) Abs Immat Gran (auto) Absolute Neuts (auto) Absolute Nucleated RBC Nucleated RBC % (auto) PT INR Anion Gap Estim Creat Clear Calc Estimated GFR Random Glucose Lactic Acid Lactic Acid Fup @ 2Hr Calcium Magnesium Total Bilirubin Direct Bilirubin AST ALT Alkaline Phosphatase Troponin I High Sens 20.5 22.4 B-Natriuretic Peptide 25 Total Protein Albumin Lipase COVID-19 ([facility]) Negative COVID-19 [employer] Com See Note 04/23/21 04/24/21 04/24/21 19:24 05:57 05:57 MCV MCH MCHC RDW Plt Count MPV Immature Gran % (Auto) Neut % (Auto) Lymph % (Auto) [place] % (Auto) Eos % (Auto) Baso % (Auto) Lymph # (Auto) [place] # (Auto) Eos # (Auto) Baso # (Auto) Abs Immat Gran (auto) Absolute Neuts (auto) Absolute Nucleated RBC Nucleated RBC % (auto) PT 16.9 H INR 1.5 H Anion Gap 21 H Estim Creat Clear Calc 6.5 Estimated GFR 4 Random Glucose 134 H Lactic Acid Lactic Acid Fup @ 2Hr 2.0 Calcium 8.6 D Magnesium Total Bilirubin 1.0 Direct Bilirubin AST 8 D ALT 7 Alkaline Phosphatase 63 D Troponin I High Sens B-Natriuretic Peptide Total Protein 6.4 L D Albumin 3.8 D Lipase COVID-19 ([facility]) COVID-19 Clin Com Microbiology Microbiology Results: Microbiology 04/23/21 17:27 Blood Culture - Preliminary Blood - Venous Prelim: GPC Gram Stain only 04/23/21 16:34 Blood Culture - Preliminary Blood - Venous Prelim: GPC Gram Stain only Assessment and Plan (1) Sepsis: Status: Acute (2) Bacteremia: Status: Acute (3) Nausea & vomiting: Status: Acute (4) Anemia in chronic kidney disease: Status: Acute (5) ESRD (end stage renal disease): Status: Acute Assessment and Plan: 25-year-old male with past medical history of says ESRD on dialysis presents to the hospital with nausea vomiting found to have sepsis # sepsis meet sepsis criteria due to tachycardia, fever leukocytosis cytosis and lactic acidosis possibly secondary to dialysis catheter, no evidence of pneumonia, no urinary symptoms Blood cultures x2 positive for Gram-positive cocci Will DC Port-A-Cath , sent catheter tip for culture Continue IV cefepime day 1/will give 1 dose of IV vancomycin follow final culture result both Obtain ID consult Follow CBC and final blood culture report # nausea vomiting - most likely secondary to acute infection, uremia, symptoms improving, will continue supportive care with antiemetics # ESRD on dialysis Case discussed with Nephrology for will arrange for dialysis this a.m., patient has left arm fistula that is functioning # anemia due to chronic kidney disease, hematocrit stable # on Coumadin INR subtherapeutic continue Coumadin follow PT INR, will discuss reason for anticoagulation. DVT prophylaxis:? Coumadin Quality Stroke Does the patient have a stroke diagnosis?: No VTE Prior VTE?: No VTE Risk Level:: Medical - moderate - high VTE Device Contraindication: Treatment Not Indicated VTE Drug Contraindication: N/A - Med Ordered
[2021-04-24 18:09] VITALS: BP 128/63; PULSE 68; RESP 18; TEMP 36.3; O2SAT 98
[2021-04-24] MEDS: Warfarin Sodium 7.5 MG TABLET PO (18:20)
[2021-04-24 18:46] VITALS: BMI 25.9
[2021-04-24 20:00] VITALS: BP 116/59; PULSE 111; RESP 18; TEMP 37.5; O2SAT 100
[2021-04-24 20:52] LABS: Vancomycin Random 15.8 mcg/mL (15-20)
[2021-04-24] MEDS: Acetaminophen 325 MG TABLET 650 MG PO (23:26)
[2021-04-24 23:29] VITALS: BP 125/58; PULSE 112; RESP 20; TEMP 37.1; O2SAT 98
[2021-04-24] MEDS: oxyCODONE HCl Immed Release 5 MG TABLET PO (23:51)
[2021-04-25] MEDS: cefEPime HCl 1 GM in 0.9 % Sodium Chloride 50 ML IV (02:02)
[2021-04-25 03:55] VITALS: BP 112/49; PULSE 86; RESP 18; TEMP 37.1; O2SAT 100
[2021-04-25 05:40] VITALS: BMI 25.8
[2021-04-25 06:29] LABS: Basophils Percent Auto 0.1 % (0-2); MANUAL DIFF FLAG SCAN; PLT CLUMP 1; SCAN SMEAR FLAG 1
[2021-04-25 06:31] LABS: Eosinophils Absolute Auto 0.1 X10*3/uL (0.0-0.4); Eosinophils Percent Auto 1.8 % (0-4); Hematocrit 24.5 % (42.0-52.0); Hemoglobin 8.1 g/dl (14.0-18.0); Imm Gran Abs Auto 0.04 X10*3/uL (0.00-0.03); Imm Gran Pct Auto 0.6 % (0.0-0.4); Lymphocytes Absolute Auto 1.2 X10*3/uL (1.2-4.9); Lymphocytes Percent Auto 16.4 % (20-40); Mean Corpuscular HGB Conc 33.1 g/dl (31.0-36.0); Mean Corpuscular Hemoglobin 29.9 pg (27.0-33.0); Mean Corpuscular Volume 90.4 fL (80.0-98.0); Mean Platelet Volume 11.5 fL (9.4-12.4); Monocytes Absolute Auto 0.8 X10*3/uL (0.1-1.2); Monocytes Percent Auto 10.6 % (2-11); Neutrophils Percent Auto 70.5 % (45-73); Red Blood Count 2.71 X10*6/uL (4.60-5.80); Red Cell Distribution Width 13.2 % (11.0-16.0); White Blood Count 7.2 X10*3/uL (4.8-10.8)
[2021-04-25 06:32] LABS: Platelet Count 74 X10*3/uL (160-400)
[2021-04-25 06:35] LABS: INTERNATIONAL NORM RATIO 1.2 (0.9-1.1); Prothrombin Time 14.2 SEC (9.9-13.0)
[2021-04-25 06:58] LABS: SLIDE REVIEW VERIFIED
[2021-04-25 07:10] LABS: Anion Gap 20 (12-20); Blood Urea Nitrogen 42 mg/dL (9-16); Calcium 9.5 mg/dL (8.4-10.2); Carbon Dioxide 20 mmol/L (22-29); Chloride 99 mmol/L (96-108); Creatinine Clr Calc Pharmacy 10.8; Estimated Glomerular Filt Rate 6; Glucose Random 86 mg/dL (60-115); Potassium 4.3 mmol/L (3.3-5.1); Sodium 135 mmol/L (135-145)
[2021-04-25 07:38] VITALS: BP 114/56; PULSE 96; RESP 18; TEMP 36.3; O2SAT 99
[2021-04-25] MEDS: Sevelamer Carbonate Tablet 800 MG TABLET 2400 MG PO ×3 (07:47→16:57)
[2021-04-25] MEDS: Cholecalciferol (Vitamin D3) 25 MCG TABLET 50 MCG PO (07:48)
[2021-04-25] MEDS: 0.9 % Sodium Chloride Flush 3 ML SYRINGE IVFLUSH (07:56)
[2021-04-25 12:00] VITALS: BP 115/51; PULSE 107; RESP 18; TEMP 37; O2SAT 95
--- NOTE | 2021-04-25 13:47 | MHC.CM.PN ---
CM MET WITH PT WHO REPORTS HE LIVES WITH HIS MOTHER PT REPORTS HE IS INDEPENDENT WITH ALL CARE AND HAS NO HOME SERVICES PT REPORTS HE DOES MOST OF HIS DIALYSIS AT HOME BUT HAS BEEN GOING TO [employer] TO LEARN HOW TO USE SOME OF THE EQUIPMENT. PT REPORTS ONCE TEACHING IS COMPLETE, HE WILL RESUME ALL HD AT HOME. PT DOES NOT HAVE A HCP AND WAS NOT INTERESTED IN COMPLETING ONE TODAY PT DOES NOT KNOW WHO HIS PCP IS BUT HE GOES TO THE [facility] CURRENT DC PLAN IS HOME WITH RESUMPTION OF HD MOTHER TO TRANSPORT
--- NOTE | 2021-04-25 13:56 | HO.PM.IMPN ---
Subjective Subjective Date of Service: 04/26/21 Interval History: Being followed for bacteremia and end-stage renal disease, patient complaining of left hand numbness and discomfort since yesterday, has had similar symptoms on and off since last 1 week when started with hemodialysis through AV fistula left arm. Review of Systems General no headache, no dizziness ,no chills.? CVS no chest pain, no palpitation.? Respiratory no cough, no sob.? Gastrointestinal + nausea, no vomiting, no abdominal pain Musculoskeletal left hand pain and numbness as above Review of Systems: Yes all other systems are reviewed and are negative Physical Exam Vital Signs: Vital Signs: Last Vital Signs Temp 98.6 F 04/25/21 12:00 Pulse 107 H 04/25/21 12:00 Resp 18 04/25/21 12:00 BP 115/51 L 04/25/21 12:00 Pulse Ox 95 04/25/21 12:00 Body Mass Index 25.8 General awake alert x3,no acute distress.? Neck supple, no JVD. CVS? regular rate rhythm, Respiratory lungs clear to auscultation, no respiratory distress, no wheeze, no rhonchi. Gastrointestinal abdomen soft, nontender, bowel sounds audible, no guarding , no rigidity. Extremities no? edema. 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, radial pulse is not palpable, decreased sensation Neuro left hand numbness, speech clear cranial nerve 2-12 intact Appropriate affect Objective Data Active Medications Acetaminophen (Acetaminophen 325 Mg Tablet) 650 mg PO Q6H PRN PRN Reason: Pain, Mild (Pain Scale 1-3) Last Admin: 04/24/21 23:26 Dose: 650 mg Documented by: ROJELIO Cefepime HCl 1 gm/ Sodium (Chloride) 50 mls @ 100 mls/hr IV Q24H EVELYN Last Infusion: 04/25/21 03:11 Dose: 0 mls/hr Documented by: ROJELIO Ondansetron HCl (Ondansetron Hcl 4 Mg/2 Ml Vial) 4 mg IVPUSH Q8H PRN PRN Reason: Nausea and Vomiting Last Admin: 04/23/21 23:47 Dose: 4 mg Documented by: SHAHID Pharmacy Consult (Consult Rx Perform Med Rec) 1 each MISCELLANE ONCE PRN PRN Reason: Consult order Pharmacy Consult (Consult Rx Vancomycin Dosing) 1 each MISCELLANE DAILY PRN PRN Reason: Consult order Sevelamer Carbonate (Sevelamer Carbonate Tablet 800 Mg Tablet) 2,400 mg PO TIDAC [facility] Last Admin: 04/25/21 07:47 Dose: 2,400 mg Documented by: SONG Sodium Chloride (0.9 % Sodium Chloride Flush 3 Ml Syringe) 3 ml IVFLUSH QSHIFT [facility] Last Admin: 04/25/21 07:56 Dose: 3 ml Documented by: SONG Vitamin D (Cholecalciferol (Vitamin D3) 25 Mcg Tablet) 50 mcg PO DAILY [facility] Last Admin: 04/25/21 07:48 Dose: 50 mcg Documented by: SONG Warfarin Sodium (Warfarin Sodium 7.5 Mg Tablet) 7.5 mg PO DAILY@1800 [facility] Last Admin: 04/24/21 18:20 Dose: 7.5 mg Documented by: BONNY Labs CBC & Chem 7: 04/26/21 05:51 04/26/21 05:51 Labs: Laboratory Results - last 24 hr 04/24/21 04/25/21 04/25/21 19:52 05:53 05:54 MCV 90.4 MCH 29.9 MCHC 33.1 RDW 13.2 Plt Count 74 L D MPV 11.5 Immature Gran % (Auto) 0.6 H Neut % (Auto) 70.5 Lymph % (Auto) 16.4 L [place] % (Auto) 10.6 Eos % (Auto) 1.8 Baso % (Auto) 0.1 Lymph # (Auto) 1.2 [place] # (Auto) 0.8 Eos # (Auto) 0.1 Baso # (Auto) 0.0 Abs Immat Gran (auto) 0.04 H Absolute Neuts (auto) 5.0 Absolute Nucleated RBC 0.000 Nucleated RBC % (auto) 0.0 Smear Tech's Comments VERIFIED PT 14.2 H INR 1.2 H Anion Gap Estim Creat Clear Calc Estimated GFR Random Glucose Calcium Random Vancomycin 15.8 04/25/21 05:54 MCV MCH MCHC RDW Plt Count MPV Immature Gran % (Auto) Neut % (Auto) Lymph % (Auto) [place] % (Auto) Eos % (Auto) Baso % (Auto) Lymph # (Auto) [place] # (Auto) Eos # (Auto) Baso # (Auto) Abs Immat Gran (auto) Absolute Neuts (auto) Absolute Nucleated RBC Nucleated RBC % (auto) Smear Tech's Comments PT INR Anion Gap 20 Estim Creat Clear Calc 10.8 Estimated GFR 6 Random Glucose 86 D Calcium 9.5 D Random Vancomycin Microbiology Microbiology Results: Microbiology 04/23/21 17:27 Blood Culture - Preliminary Blood - Venous Staphylococcus aureus 04/23/21 16:34 Blood Culture - Preliminary Blood - Venous Staphylococcus aureus 04/24/21 12:15 Catheter Tip Culture - Preliminary Catheter Tip - Other Staphylococcus species Assessment and Plan (1) Sepsis: Status: Acute (2) Bacteremia: Status: Acute (3) Nausea & vomiting: Status: Acute (4) Metabolic acidosis: Status: Acute (5) Hypertension: Status: Acute (6) Anemia in chronic kidney disease: Status: Acute (7) ESRD (end stage renal disease): Status: Acute Assessment and Plan: 25-year-old male with past medical history of says ESRD on dialysis presents to the hospital with nausea vomiting found to have sepsis # sepsis meet sepsis criteria due to tachycardia, fever leukocytosis cytosis and lactic acidosis ? All symptoms of sepsis resolved, possibly secondary to dialysis catheter, no evidence of pneumonia, no urinary symptoms ? Blood cultures x2 positive for Gram-positive cocci,catheter tip culture pending. ? Continue IV vancomycin post dialysis follow Vanco trough, and continue IV cefepime, follow final culture result ? Await ID consult ? Follow CBC and final blood culture report # nausea vomiting - most likely secondary to acute infection, uremia, All symptoms resolved # ESRD on dialysis ?? Receiving dialysis this morning through left arm fistula /PermCath removed yesterday # anemia due to chronic kidney disease, hematocrit stable follow CBC # on Coumadin INR subtherapeutic continue Coumadin follow PT INR # left hand numbness and tingling with absent radial pulse case discussed with Dr. Carmichael and Dr. Handy, Dr. Handy recommend to work him up as out patient and diagnosis is steal phenomena DVT prophylaxis:? Coumadin Quality Stroke Does the patient have a stroke diagnosis?: No VTE Prior VTE?: No VTE Risk Level:: Medical - moderate - high VTE Device Contraindication: Treatment Not Indicated VTE Drug Contraindication: N/A - Med Ordered
--- NOTE | 2021-04-25 14:11 | P.PNNP_ITS ---
Subjective Subjective Date of Service: 04/25/21 Interval history: Events noted. Had HD. All recent data reviewed. Has some symptoms of Steal syndrome on the fistula arm. Permcath D/Lg yesterday Physical Exam Vital Signs: Vital Signs: Last Vital Signs Temp 98.6 F 04/25/21 12:00 Pulse 107 H 04/25/21 12:00 Resp 18 04/25/21 12:00 BP 115/51 L 04/25/21 12:00 Pulse Ox 95 04/25/21 12:00 Body Mass Index 25.8 Const: General: no acute distress Orientation/consciousness: patient oriented x3 HENMT: Head: Yes normocephalic Eyes: EOM: EOMs intact bilaterally Neck: Neck: Yes supple Resp: Auscultation: diminished lung sounds Cardio: Jugular venous distension: no JVD Rhythm: regular rhythm GI: Palpation (GI): Soft to palpation Neuro: General: patient oriented x3 and moves all extremities Objective Data Labs CBC & Chem 7: 04/25/21 05:54 04/25/21 05:54 Labs: Laboratory Results - last 24 hr 04/24/21 04/25/21 04/25/21 19:52 05:53 05:54 WBC 7.2 RBC 2.71 L Hgb 8.1 L Hct 24.5 L MCV 90.4 MCH 29.9 MCHC 33.1 RDW 13.2 Plt Count 74 L D MPV 11.5 Immature Gran % (Auto) 0.6 H Neut % (Auto) 70.5 Lymph % (Auto) 16.4 L [place] % (Auto) 10.6 Eos % (Auto) 1.8 Baso % (Auto) 0.1 Lymph # (Auto) 1.2 [place] # (Auto) 0.8 Eos # (Auto) 0.1 Baso # (Auto) 0.0 Abs Immat Gran (auto) 0.04 H Absolute Neuts (auto) 5.0 Absolute Nucleated RBC 0.000 Nucleated RBC % (auto) 0.0 Smear Tech's Comments VERIFIED PT 14.2 H INR 1.2 H Sodium Potassium Chloride Carbon Dioxide Anion Gap BUN Creatinine Estim Creat Clear Calc Estimated GFR Random Glucose Calcium Random Vancomycin 15.8 04/25/21 05:54 WBC RBC Hgb Hct MCV MCH MCHC RDW Plt Count MPV Immature Gran % (Auto) Neut % (Auto) Lymph % (Auto) [place] % (Auto) Eos % (Auto) Baso % (Auto) Lymph # (Auto) [place] # (Auto) Eos # (Auto) Baso # (Auto) Abs Immat Gran (auto) Absolute Neuts (auto) Absolute Nucleated RBC Nucleated RBC % (auto) Smear Tech's Comments PT INR Sodium 135 Potassium 4.3 Chloride 99 Carbon Dioxide 20 L Anion Gap 20 BUN 42 H Creatinine 10.14 H* Estim Creat Clear Calc 10.8 Estimated GFR 6 Random Glucose 86 D Calcium 9.5 D Random Vancomycin Microbiology Microbiology Results: Microbiology 04/23/21 17:27 Blood - Venous Blood Culture - Preliminary Staphylococcus aureus 04/23/21 16:34 Blood - Venous Blood Culture - Preliminary Staphylococcus aureus 04/24/21 12:15 Catheter Tip - Other Catheter Tip Culture - Preliminary Staphylococcus species Procedures Date of Service Date of Service: 04/25/21 Assessment & Plan Assessment and plan (1) ESRD (end stage renal disease): Status: Acute Assessment and Plan: 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 Had a permcath- D/Lg yesterday Also has a functioning AVF- Now has symptoms of steal syndrome- Rozina to see Shall dialyze him Tuesday 2 Gram K, 2 Gram Na, phosphorus restricted diet with fluid restriction 1.5 L/24 hours Phosphorus binders with meals. Procrit [id number] Units this weekend C/W rest of current management Time Spent With Patient Time: Total time spent is greater than 50% in coordination of care (as documented) at patient's floor/unit and/or counseling patient: Progress Note: Quality Stroke Does the patient have a stroke diagnosis?: No
[2021-04-25 15:27] LABS: Vancomycin Random 8.6 mcg/mL (15-20)
[2021-04-25 15:40] VITALS: BP 114/54; PULSE 94; RESP 18; TEMP 37.2; O2SAT 97
[2021-04-25] MEDS: vancomycin HCL 500 MG in 0.9 % Sodium Chloride 100 ML 110 MG IV (16:42)
[2021-04-25] MEDS: Warfarin Sodium 7.5 MG TABLET PO (17:48)
[2021-04-25 19:45] VITALS: BP 138/56; PULSE 100; RESP 18; TEMP 37.2; O2SAT 97
--- NOTE | 2021-04-25 22:42 | P.CNID_ITS ---
History of Present Illness Data of Consult Service Date: 04/25/21 Requesting physician: Kendall Berry Primary Care Provider: [facility] Reason for consult: hand pain He presents with nausea and vomiting for two days. He has fever and chills. He has numbness index finger right hand. Blood culture staph aureus. 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) Alcohol intake: never Patient Tobacco Use Status: Tobacco use Unknown Substance Use Type: Marijuana Advance Directives Date on File: 07/23/20 service: No Current occupational status: unemployed Meds Allergies Allergy/AdvReac Type Severity Reaction Status Date / Time NSAIDS (Non-Steroidal AdvReac Unknown KIDNEY Verified 07/23/20 14:35 Anti-Inflamma DISEASE [NSAIDS (NON-STEROIDAL ANTI-INFLAMMA] Active Medications: Current Medications Acetaminophen (Acetaminophen 325 Mg Tablet) 650 mg PO Q6H PRN PRN Reason: Pain, Mild (Pain Scale 1-3) Last Admin: 04/24/21 23:26 Dose: 650 mg Documented by: Lidocaine HCl (Lidocaine Hcl 1 % Mpf 2 Ml Ampul) 0.5 ml SUBCUT ONCE ONE Stop: 04/27/21 06:16 Ondansetron HCl (Ondansetron Hcl 4 Mg/2 Ml Vial) 4 mg IVPUSH Q8H PRN PRN Reason: Nausea and Vomiting Last Admin: 04/23/21 23:47 Dose: 4 mg Documented by: Pharmacy Consult (Consult Rx Perform Med Rec) 1 each MISCELLANE ONCE PRN PRN Reason: Consult order Pharmacy Consult (Consult Rx Vancomycin Dosing) 1 each MISCELLANE DAILY PRN PRN Reason: Consult order Sevelamer Carbonate (Sevelamer Carbonate Tablet 800 Mg Tablet) 2,400 mg PO TIDAC [facility]ELYN Last Admin: 04/25/21 16:57 Dose: 2,400 mg Documented by: Sodium Chloride (0.9 % Sodium Chloride Flush 3 Ml Syringe) 3 ml IVFLUSH QSHIFT [facility] Last Admin: 04/25/21 17:21 Dose: Not Given Documented by: Vitamin D (Cholecalciferol (Vitamin D3) 25 Mcg Tablet) 50 mcg PO DAILY [facility] Last Admin: 04/25/21 07:48 Dose: 50 mcg Documented by: Warfarin Sodium (Warfarin Sodium 7.5 Mg Tablet) 7.5 mg PO DAILY@1800 [facility] Last Admin: 04/25/21 17:48 Dose: 7.5 mg Documented by: Home Medications Medication Instructions Recorded Confirmed Last Taken Type acetaminophen 325 mg tablet 650 mg PO Q6H PRN 04/23/21 04/23/21 Unknown History cholecalciferol (vitamin D3) 50 1 cap PO DAILY 04/23/21 04/23/21 04/22/21 History mcg (2,000 unit) capsule sevelamer carbonate 800 mg tablet 2,400 mg PO TIDAC 04/23/21 04/23/21 04/22/21 History warfarin 5 mg tablet 7.5 mg PO DAILY@1800 04/23/21 04/23/21 04/22/21 History Physical Exam Vital Signs: Vital Signs: Last Vital Signs Temp 99 F 04/25/21 19:45 Pulse 100 04/25/21 19:45 Resp 18 04/25/21 19:45 BP 138/56 L 04/25/21 19:45 Pulse Ox 97 04/25/21 19:45 Body Mass Index 25.8 Const: General: cooperative Eyes: General: appearance normal, both eyes and all related structures Resp: Effort & Inspection: normal respiratory effort Cardio: Rate: regular rate Rhythm: regular rhythm GI: Palpation (GI): Soft to palpation and nontender Extrem: Other: discomfort left hand ,slight dark area DIP finger Results Labs CBC & Chem 7: 04/26/21 05:51 04/26/21 05:51 Labs: Short CBC 04/25/21 Range/Units 05:54 WBC 7.2 (4.8-10.8) X10*3/uL Hgb 8.1 L (14.0-18.0) g/dl Hct 24.5 L (42.0-52.0) % Plt Count 74 L D (160-400) X10*3/uL [facility] 04/25/21 05:54 Sodium 135 Potassium 4.3 Chloride 99 Carbon Dioxide 20 L BUN 42 H Creatinine 10.14 H* Calcium 9.5 D Microbiology Microbiology Results: Microbiology 04/23/21 17:27 Blood - Venous Blood Culture - Preliminary Staphylococcus aureus 04/23/21 16:34 Blood - Venous Blood Culture - Preliminary Staphylococcus aureus 04/24/21 12:15 Catheter Tip - Other Catheter Tip Culture - Preliminary Staphylococcus species Assessment and Plan (1) Sepsis: Status: Resolved (2) Bacteremia: Status: Resolved staph aureus,may be MRSA Need to rule out any hand infection Would give Vancomycin Renal adjust Stop Cefepime Vascular evaluate right hand numbness,?infection
[2021-04-25 23:51] VITALS: BP 123/54; PULSE 100; RESP 18; TEMP 37.2; O2SAT 98
[2021-04-26 03:59] VITALS: BP 122/55; PULSE 92; RESP 18; TEMP 36.9; O2SAT 96
[2021-04-26 04:10] VITALS: BMI 26.2
[2021-04-26 06:11] LABS: Basophils Percent Auto 0.4 % (0-2); Eosinophils Absolute Auto 0.1 X10*3/uL (0.0-0.4); MANUAL DIFF FLAG SCAN; Mean Corpuscular Hemoglobin 29.6 pg (27.0-33.0); Mean Platelet Volume 11.3 fL (9.4-12.4); Monocytes Absolute Auto 0.6 X10*3/uL (0.1-1.2); PLT CLUMP 1; Red Cell Distribution Width 12.8 % (11.0-16.0); SCAN SMEAR FLAG 1
[2021-04-26 06:13] LABS: Eosinophils Percent Auto 1.6 % (0-4); Imm Gran Abs Auto 0.02 X10*3/uL (0.00-0.03); Imm Gran Pct Auto 0.4 % (0.0-0.4); Lymphocytes Absolute Auto 1.1 X10*3/uL (1.2-4.9); Lymphocytes Percent Auto 19.5 % (20-40); Mean Corpuscular HGB Conc 33.3 g/dl (31.0-36.0); Mean Corpuscular Volume 88.9 fL (80.0-98.0); Monocytes Percent Auto 10.8 % (2-11); Neutrophils Absolute Auto 3.8 x10*3/uL (2.0-8.3); Neutrophils Percent Auto 67.3 % (45-73); White Blood Count 5.7 X10*3/uL (4.8-10.8)
[2021-04-26 06:18] LABS: Platelet Count 94 X10*3/uL (160-400)
[2021-04-26 06:23] LABS: INTERNATIONAL NORM RATIO 1.7 (0.9-1.1); Prothrombin Time 19.7 SEC (9.9-13.0)
[2021-04-26 06:40] LABS: Anion Gap 20 (12-20); Blood Urea Nitrogen 39 mg/dL (9-16); Calcium 8.6 mg/dL (8.4-10.2); Carbon Dioxide 22 mmol/L (22-29); Chloride 99 mmol/L (96-108); Creatinine Clr Calc Pharmacy 12.4; Estimated Glomerular Filt Rate 7; Glucose Random 83 mg/dL (60-115); Potassium 3.8 mmol/L (3.3-5.1); Sodium 137 mmol/L (135-145)
[2021-04-26 06:56] LABS: SLIDE REVIEW VERIFIED
[2021-04-26] MEDS: Cholecalciferol (Vitamin D3) 25 MCG TABLET 50 MCG PO (07:32)
[2021-04-26] MEDS: Sevelamer Carbonate Tablet 800 MG TABLET 2400 MG PO ×3 (07:32→16:49)
[2021-04-26 07:37] VITALS: BP 122/61; PULSE 101; RESP 20; TEMP 37.3; O2SAT 99
[2021-04-26] MEDS: 0.9 % Sodium Chloride Flush 3 ML SYRINGE IVFLUSH ×2 (07:43→16:54)
[2021-04-26 11:42] VITALS: BP 125/48; PULSE 90; RESP 18; TEMP 37.1; O2SAT 98
--- NOTE | 2021-04-26 11:43 | HO.PM.IMPN ---
Subjective Subjective Date of Service: 04/26/21 Interval History: Complaining of persistent left hand numbness, denies nausea vomiting no other acute issues overnight, no fevers no chills. Review of Systems General no headache. no dizziness no fever chills. CVS no chest pain, no palpitation. Respiratory no cough no sob Gastrointestinal no nausea, no vomiting, no abdominal pain Review of Systems: Yes all other systems are reviewed and are negative Physical Exam Vital Signs: Vital Signs: Last Vital Signs Temp 99.1 F 04/26/21 07:37 Pulse 101 H 04/26/21 07:37 Resp 20 04/26/21 07:37 BP 122/61 04/26/21 07:37 Pulse Ox 99 04/26/21 07:37 Body Mass Index 26.2 General awake aler t x3,no acute dist ress.? Neck supple , no JVD. CVS? reg ular rate rhythm, Respiratory lungs clear to auscultat ion, no respirator y distress, no whe maeve, no rhonchi. G astrointestinal ab domen soft, nonten sina, bowel sounds audible, no guardi ng , no rigidity. Extremities no? ed tima. 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 in tact Appropriate a ffect Objective Data Active Medications Acetaminophen (Acetaminophen 325 Mg Tablet) 650 mg PO Q6H PRN PRN Reason: Pain, Mild (Pain Scale 1-3) Last Admin: 04/24/21 23:26 Dose: 650 mg Documented by: ROJELIO Lidocaine HCl (Lidocaine Hcl 1 % Mpf 2 Ml Ampul) 0.5 ml SUBCUT ONCE ONE Stop: 04/27/21 06:16 Ondansetron HCl (Ondansetron Hcl 4 Mg/2 Ml Vial) 4 mg IVPUSH Q8H PRN PRN Reason: Nausea and Vomiting Last Admin: 04/23/21 23:47 Dose: 4 mg Documented by: SHAHID Pharmacy Consult (Consult Rx Perform Med Rec) 1 each MISCELLANE ONCE PRN PRN Reason: Consult order Pharmacy Consult (Consult Rx Vancomycin Dosing) 1 each MISCELLANE DAILY PRN PRN Reason: Consult order Pharmacy Consult (Consult Rx Vancomycin Dosing) 1 each MISCELLANE DAILY PRN PRN Reason: Consult order Sevelamer Carbonate (Sevelamer Carbonate Tablet 800 Mg Tablet) 2,400 mg PO TIDAC [facility] Last Admin: 04/26/21 07:32 Dose: 2,400 mg Documented by: BONNY Sodium Chloride (0.9 % Sodium Chloride Flush 3 Ml Syringe) 3 ml IVFLUSH QSHIFT [facility] Last Admin: 04/26/21 07:43 Dose: 3 ml Documented by: BONNY Vitamin D (Cholecalciferol (Vitamin D3) 25 Mcg Tablet) 50 mcg PO DAILY [facility] Last Admin: 04/26/21 07:32 Dose: 50 mcg Documented by: BONNY Warfarin Sodium (Warfarin Sodium 7.5 Mg Tablet) 7.5 mg PO DAILY@1800 [facility] Last Admin: 04/25/21 17:48 Dose: 7.5 mg Documented by: SONG Labs CBC & Chem 7: 04/26/21 05:51 04/26/21 05:51 Labs: Laboratory Results - last 24 hr 04/25/21 04/26/21 04/26/21 14:55 05:51 05:51 MCV 88.9 MCH 29.6 MCHC 33.3 RDW 12.8 Plt Count 94 L D MPV 11.3 Immature Gran % (Auto) 0.4 Neut % (Auto) 67.3 Lymph % (Auto) 19.5 L [place] % (Auto) 10.8 Eos % (Auto) 1.6 Baso % (Auto) 0.4 Lymph # (Auto) 1.1 L [place] # (Auto) 0.6 Eos # (Auto) 0.1 Baso # (Auto) 0.0 Abs Immat Gran (auto) 0.02 Absolute Neuts (auto) 3.8 Absolute Nucleated RBC 0.000 Nucleated RBC % (auto) 0.0 Smear Tech's Comments VERIFIED PT 19.7 H INR 1.7 H Anion Gap Estim Creat Clear Calc Estimated GFR Random Glucose Calcium Random Vancomycin 8.6 L 04/26/21 05:51 MCV MCH MCHC RDW Plt Count MPV Immature Gran % (Auto) Neut % (Auto) Lymph % (Auto) [place] % (Auto) Eos % (Auto) Baso % (Auto) Lymph # (Auto) [place] # (Auto) Eos # (Auto) Baso # (Auto) Abs Immat Gran (auto) Absolute Neuts (auto) Absolute Nucleated RBC Nucleated RBC % (auto) Smear Tech's Comments PT INR Anion Gap 20 Estim Creat Clear Calc 12.4 Estimated GFR 7 Random Glucose 83 Calcium 8.6 D Random Vancomycin Microbiology Microbiology Results: Microbiology 04/23/21 17:27 Blood Culture - Final Blood - Venous Staphylococcus aureus 04/23/21 16:34 Blood Culture - Final Blood - Venous Staphylococcus aureus 04/24/21 12:15 Catheter Tip Culture - Preliminary Catheter Tip - Other Staphylococcus aureus Assessment and Plan (1) Sepsis: Status: Acute (2) Bacteremia: Status: Acute (3) Anemia in chronic kidney disease: Status: Acute (4) ESRD (end stage renal disease): Status: Acute (5) Renal failure, acute on chronic: Status: Acute Assessment and Plan: 25-year-old male with past medical history of says ESRD on dialysis presents to the hospital with nausea vomiting found to have sepsis # sepsis due to infected catheter tip Sepsis resolved , no fever, WBC and lactic acid normalized ? Blood cultures x2 and hemodialysis catheter tip positive for staph aureus . ? Continue? IV vancomycin , pharmacy is managing vancomycin, received vancomycin last dose yesterday will have repeat trough tomorrow. Id recommend to continue vanco follow final culture and repeat blood cultures tomorrow ? # nausea vomiting - most likely secondary to acute infection, uremia, ? All symptoms resolved # ESRD on dialysis ?? Status post hemodialysis Tuesday and Tuesday , resume hemodialysis tomorrow # anemia due to chronic kidney disease, hematocrit stable follow CBC, will discuss use of Procrit # on Coumadin due to clot at site of dialysis catheter, now removed, being followed at [facility], subtherapeutic inr 1.7 todaycontinue Coumadin follow PT INR Asked patient to follow-up with PCP to find out duration of anticoagulation. # left hand numbness and tingling with absent radial pulse case discussed with Dr. Carmichael and Dr. Handy, Dr. Handy felt its steal phenomena related to arm fistula, he will see patient at a.m. DVT prophylaxis:? Coumadin Quality Stroke Does the patient have a stroke diagnosis?: No VTE Prior VTE?: No VTE Risk Level:: Medical - moderate - high VTE Device Contraindication: Treatment Not Indicated VTE Drug Contraindication: N/A - Med Ordered
--- NOTE | 2021-04-26 14:23 | P.PNNP_ITS ---
Subjective Subjective Date of Service: 04/26/21 Interval history: Events noted. All recent data reviewed Physical Exam Vital Signs: Vital Signs: Last Vital Signs Temp 98.8 F 04/26/21 11:42 Pulse 90 04/26/21 11:42 Resp 18 04/26/21 11:42 BP 125/48 L 04/26/21 11:42 Pulse Ox 98 04/26/21 11:42 Body Mass Index 26.2 Const: General: no acute distress Orientation/consciousness: patient oriented x3 HENMT: Head: Yes normocephalic Eyes: EOM: EOMs intact bilaterally Neck: Neck: Yes supple Resp: Auscultation: diminished lung sounds Cardio: Rate: regular rate GI: Palpation (GI): Soft to palpation Neuro: General: patient oriented x3 and moves all extremities Objective Data Labs CBC & Chem 7: 04/26/21 05:51 04/26/21 05:51 Labs: Laboratory Results - last 24 hr 04/25/21 04/26/21 04/26/21 14:55 05:51 05:51 WBC 5.7 RBC 2.70 L Hgb 8.0 L Hct 24.0 L MCV 88.9 MCH 29.6 MCHC 33.3 RDW 12.8 Plt Count 94 L D MPV 11.3 Immature Gran % (Auto) 0.4 Neut % (Auto) 67.3 Lymph % (Auto) 19.5 L [place] % (Auto) 10.8 Eos % (Auto) 1.6 Baso % (Auto) 0.4 Lymph # (Auto) 1.1 L [place] # (Auto) 0.6 Eos # (Auto) 0.1 Baso # (Auto) 0.0 Abs Immat Gran (auto) 0.02 Absolute Neuts (auto) 3.8 Absolute Nucleated RBC 0.000 Nucleated RBC % (auto) 0.0 Smear Tech's Comments VERIFIED PT 19.7 H INR 1.7 H Sodium Potassium Chloride Carbon Dioxide Anion Gap BUN Creatinine Estim Creat Clear Calc Estimated GFR Random Glucose Calcium Random Vancomycin 8.6 L 04/26/21 05:51 WBC RBC Hgb Hct MCV MCH MCHC RDW Plt Count MPV Immature Gran % (Auto) Neut % (Auto) Lymph % (Auto) [place] % (Auto) Eos % (Auto) Baso % (Auto) Lymph # (Auto) [place] # (Auto) Eos # (Auto) Baso # (Auto) Abs Immat Gran (auto) Absolute Neuts (auto) Absolute Nucleated RBC Nucleated RBC % (auto) Smear Tech's Comments PT INR Sodium 137 Potassium 3.8 Chloride 99 Carbon Dioxide 22 Anion Gap 20 BUN 39 H Creatinine 8.85 H* Estim Creat Clear Calc 12.4 Estimated GFR 7 Random Glucose 83 Calcium 8.6 D Random Vancomycin Microbiology Microbiology Results: Microbiology 04/23/21 17:27 Blood - Venous Blood Culture - Final Staphylococcus aureus 04/23/21 16:34 Blood - Venous Blood Culture - Final Staphylococcus aureus 04/24/21 12:15 Catheter Tip - Other Catheter Tip Culture - Preliminary Staphylococcus aureus Procedures Date of Service Date of Service: 04/26/21 Assessment & Plan Assessment and plan (1) ESRD (end stage renal disease): Status: Acute Assessment and Plan: 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 Had a permcath- D/Lg 2 days ago Also has a functioning AVF- Now has symptoms of steal syndrome-?Rozina to see Tuesday Shall dialyze him Tuesday again- HD RN aware 2 Gram K, 2 Gram Na, phosphorus restricted diet with fluid restriction 1.5 L/24 hours Phosphorus binders with meals.?Procrit [id number] Units this weekend C/W rest of current management Time Spent With Patient Time: Total time spent is greater than 50% in coordination of care (as do cumented) at patient's floor/unit and/or counseling patient: Progress Note: Quality Stroke Does the patient have a stroke diagnosis?: No
[2021-04-26 15:15] VITALS: BP 125/57; PULSE 95; RESP 18; TEMP 37.2; O2SAT 100
[2021-04-26] MEDS: Warfarin Sodium 7.5 MG TABLET PO (16:48)
[2021-04-26 19:05] VITALS: BP 120/60; PULSE 100; RESP 18; TEMP 37.2; O2SAT 98
[2021-04-26 23:17] VITALS: BP 138/63; PULSE 88; RESP 18; TEMP 36.9; O2SAT 100
[2021-04-27 03:31] VITALS: BP 131/60; PULSE 71; RESP 18; TEMP 36.9; O2SAT 99
[2021-04-27 06:00] VITALS: BMI 26.0
[2021-04-27 06:48] VITALS: BP 132/61; PULSE 84; RESP 16; TEMP 35.5; O2SAT 98
[2021-04-27] MEDS: Sevelamer Carbonate Tablet 800 MG TABLET 2400 MG PO ×2 (07:12→13:00)
[2021-04-27 07:32] LABS: INTERNATIONAL NORM RATIO 2.3 (0.9-1.1); Prothrombin Time 26.4 SEC (9.9-13.0)
--- NOTE | 2021-04-27 09:24 | W.PM.DNNEP ---
Subjective Subjective Principal diagnosis: ESRD/Sepsis This patient was seen during dialysis. Interval history: Events noted. All recent data reviewed Physical Exam Vital Signs: Vital Signs: Last Vital Signs Temp 96 F L 04/27/21 06:48 Pulse 84 04/27/21 06:48 Resp 16 04/27/21 06:48 BP 132/61 04/27/21 06:48 Pulse Ox 98 04/27/21 06:48 Body Mass Index 26.0 Const: Orientation/consciousness: patient oriented x3 Eyes: EOM: EOMs intact bilaterally Neck: Neck: Yes supple Resp: Auscultation: diminished lung sounds Cardio: Jugular venous distension: no JVD Rate: regular rate Rhythm: regular rhythm GI: Palpation (GI): Soft to palpation Neuro: General: patient oriented x3 and moves all extremities Assessment & Plan Assessment and plan (1) ESRD (end stage renal disease): Status: Acute Assessment and Plan: 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 Had a permcath- D/Lg -Now on antibiotics Has a functioning AVF- Now has symptoms of steal syndrome-? to see Keep on HD 3x week 2 Gram K, 2 Gram Na, phosphorus restricted diet with fluid restriction 1.5 L/24 hours Phosphorus binders with meals.?Procrit [id number] Units Will arrange for out pt dialysis Antibiotics as outlined by team C/W rest of current management Time Spent With Patient Time with patient: 15 - 24 minutes Procedures Date of Service Date of Service: 04/27/21
--- NOTE | 2021-04-27 12:04 | P.CONGS_ITS ---
History of Present Illness Consult details Consult date: 04/27/21 Narrative: Very pleasant 25-year-old gentleman who has end-stage renal disease and is dialysis dependent presents to us for vascular evaluation. He has originally had an outpatient fistula placed at [facility] Dr. May. He originally had a left upper extremity some me know type fistula which failed to mature. He subsequently had a left upper extremity brachiocephalic fistula which appears to be working. He was being dialyzed to this point via PermCath. He presented to the hospital with temps of 103 and chills. He subsequently had the PermCath pulled. He appears to be doing better from a septic standpoint. T selam have started using the fistula of the left upper extremity and it has been it cannulated with small needles. He has been demonstrating steal like symptoms. It was originally occasional left arm numbness. He now has a consistent numbness. He has motor and sensation intact. There is no evidence of ulceration. He once again is now for vascular evaluation. Review of Systems Review of Systems: Yes all other systems are reviewed and are negative Constitutional: Constitutional: Reports no additional constitutional complaints ENT: Reports Normal hearing present Cardiovascular: Cardiovascular: Denies chest pain, Denies chest pain at rest, Denies chest pain with activity and Denies pedal edema Respiratory: Respiratory: Denies cough Gastrointestinal: Gastrointestinal: Denies abdominal pain Musculoskeletal: Musculoskeletal: Denies abnormal gait, Denies muscle cramps and Denies radiating pain into limb Integumentary/Breasts: Skin/Breast: Denies skin ulcer and Denies wounds Neurologic: Reports Normal hearing present and Denies abnormal gait Psychiatric: Psychiatric: Reports no additional psychiatric complaints [facility], [facility] Past Medical History Medical History AV fistula Chronic kidney disease Hypertension Family History Family history: reviewed and not pertinent Social History Social History Household Members: Family Household Members Other:: mother Housing: House Do you presently have visiting nurse or other home services: Yes (rn neonatal icu) Alcohol intake: never Patient Tobacco Use Status: Tobacco use Unknown Substance Use Type: Marijuana Advance Directives Date on File: 07/23/20 service: No Current occupational status: unemployed Meds Allergies Allergy/AdvReac Type Severity Reaction Status Date / Time NSAIDS (Non-Steroidal AdvReac Unknown KIDNEY Verified 07/23/20 14:35 Anti-Inflamma DISEASE [NSAIDS (NON-STEROIDAL ANTI-INFLAMMA] Active Medications: Current Medications Acetaminophen (Acetaminophen 325 Mg Tablet) 650 mg PO Q6H PRN PRN Reason: Pain, Mild (Pain Scale 1-3) Last Admin: 04/24/21 23:26 Dose: 650 mg Documented by: Ondansetron HCl (Ondansetron Hcl 4 Mg/2 Ml Vial) 4 mg IVPUSH Q8H PRN PRN Reason: Nausea and Vomiting Last Admin: 04/23/21 23:47 Dose: 4 mg Documented by: Pharmacy Consult (Consult Rx Perform Med Rec) 1 each MISCELLANE ONCE PRN PRN Reason: Consult order Pharmacy Consult (Consult Rx Vancomycin Dosing) 1 each MISCELLANE DAILY PRN PRN Reason: Consult order Pharmacy Consult (Consult Rx Vancomycin Dosing) 1 each MISCELLANE DAILY PRN PRN Reason: Consult order Sevelamer Carbonate (Sevelamer Carbonate Tablet 800 Mg Tablet) 2,400 mg PO TIDAC [facility] Last Admin: 04/27/21 07:12 Dose: 2,400 mg Documented by: Sodium Chloride (0.9 % Sodium Chloride Flush 3 Ml Syringe) 3 ml IVFLUSH QSHIFT [facility] Last Admin: 04/27/21 00:00 Dose: 3 ml Documented by: Vitamin D (Cholecalciferol (Vitamin D3) 25 Mcg Tablet) 50 mcg PO DAILY [facility] Last Admin: 04/26/21 07:32 Dose: 50 mcg Documented by: Warfarin Sodium (Warfarin Sodium 7.5 Mg Tablet) 7.5 mg PO DAILY@1800 [facility] Last Admin: 04/26/21 16:48 Dose: 7.5 mg Documented by: Home Medications Medication Instructions Recorded Confirmed Last Taken Type acetaminophen 325 mg tablet 650 mg PO Q6H PRN 04/23/21 04/23/21 Unknown History cholecalciferol (vitamin D3) 50 1 cap PO DAILY 04/23/21 04/23/21 04/22/21 History mcg (2,000 unit) capsule sevelamer carbonate 800 mg tablet 2,400 mg PO TIDAC 04/23/21 04/23/21 04/22/21 History warfarin 5 mg tablet 7.5 mg PO DAILY@1800 04/23/21 04/23/21 04/22/21 History Physical Exam Vital Signs: Vital Signs: Last Vital Signs Temp 96 F L 04/27/21 06:48 Pulse 84 04/27/21 06:48 Resp 16 04/27/21 06:48 BP 132/61 04/27/21 06:48 Pulse Ox 98 04/27/21 06:48 Body Mass Index 26.0 Const: General: cooperative, healthy appearing and comfortable Orientation/consciousness: oriented to person, oriented to place and oriented to time HENMT: Head: Yes normal to inspection Neck: Neck: Yes normal visual inspection Carotids: no bruits Chest: Chest palpation & inspection: normal inspection of the chest Resp: Effort & Inspection: normal respiratory effort and able to speak in complete sentences Auscultation: clear to auscultation bilaterally, no crackles, no rales, no rhonchi and no wheezes Cardio: Rate: regular rate Rhythm: regular rhythm Heart sounds: S1 normal heart sound present and S2 normal heart sound present Bruits: no carotid bruits Peripheral pulses: brachial pulses present, radial pulses present (Left side present) and ulnar radial pulses present (Left side signal only) GI: Inspection: Yes normal to inspection Skin: Wounds: no wounds Hair: normal Neuro: General: oriented to person, oriented to place and oriented to time Cranial nerves: Yes CN's II-XII intact bilaterally and Yes Normal hearing present Cognition (Neuro): normal cognition Motor exam (neuro): 5/5 motor strength present throughout Extrem: Other: venous exam: No significant superficial varicosities or spider telangiectasias, minimal edema General: No clubbing, No cyanosis and No edema Psych: Appearance: grossly normal Mental Status: mental status grossly normal Speech and movement: Normal speech and movement present Results Labs Result diagrams: 04/26/21 05:51 04/26/21 05:51 Labs: Abnormal lab results 04/27/21 Range/Units 06:45 PT 26.4 H (9.9-13.0) SEC INR 2.3 H (0.9-1.1) All other labs normal. Assessment and Plan (1) 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: Qualifiers: Encounter type: initial encounter Qualified Code(s): T82.898A - Other specified complication of vascular prosthetic devices, implants and grafts, initial encounter Status: Acute In short patient is demonstrating early this symptoms of steal. The fistula and hand are stable at the current time. He appears to be stable for discharge. He can be worked up as an outpatient as his sepsis clears. I would be happy to take care of it as an outpatient if required or he can return back to [facility] where the original fistula was placed by Dr. May. Thank you for allowing us to assist in this patient's care. If there are any questions or concerns please do not hesitate to contact us. The patient had an opportunity to ask questions regarding the treatment plan. All questions were answered. Imaging studies, laboratory studies and physical exam results were discussed and reviewed in detail. No major barriers to understanding were identified. The patient expressed understanding and agreement with the above treatment plan. The patient is aware they should contact our office by phone for worsening of the current condition or the appearance of new symptoms. Thank you for allowing me to participate in the vascular care of this patient. If you have any questions or concerns regarding the treatment for the above condition please do not hesitate to contact me. The office telephone contact is [phone]. This note is constructed using voice recognition software. While every effort has been made to ensure accuracy, geometry teacher errors may have been included. Thank you for allowing me to participate in the care of your patient. Yours sincerely, Wong Handy MD, FACS, R.P.V.I. Procedures Date of Service Date of Service: 04/27/21
--- NOTE | 2021-04-27 12:44 | PM.DS ---
DS: Providers Provider Date of Service: 04/27/21 Date of admission: 04/23/21 22:35 Primary care physician: [facility] Consults: 04/23/21 23:29 Consult to Nephrology Routine Consulting Provider: [facility] Reason for consultation: dialysis pt Has provider been notified: Yes 04/24/21 16:06 Consult to Infectious Diseases Routine Consulting Provider: Melany Douglas Reason for consultation: gm pos bacteremia Has provider been notified: No 04/25/21 11:10 Consult to Vascular Surgery Routine Consulting Provider: Wong Handy Reason for consultation: radial pulse not palpable left hand has fistula left arm Has provider been notified: No DS: Diagnosis Discharge Diagnosis (1) 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: Status: Acute DS: Summary Hospital Course Hospital Course: [facility] Complaint: N/V 25-year-old male with past medical history of ESRD on dialysis, hypertension presents the hospital with complaints of nausea vomiting.? Patient reports that he has been feeling on 1 for few days, started having nausea and vomiting yesterday constant, intractable.? Decided to come to the hospital.? On arrival to the ED patient was found to be febrile with a temperature of 103.2?, tachycardic with heart rate of 140.? Patient reports that he does do dialysis 5 days a week, twice through his Port-A-Cath hand have had a new fistula that he is not a trend to even sit 3 days away.? He reports that he did not have dialysis done yesterday because he was feeling too ill. Patient denies having any chest pain, no abdominal pain, no diarrhea constipation, he still produces some urine but has no urgency frequency or dysuria.? Denies having any numbness weakness or tingling. Other vitals are significant for BP of 104/29 Labs are significant for WBC count of 12.8, hemoglobin of 9.3, BUN of 72, creatinine of 15.2, lactic acid of 3.9, No acute cardiopulmonary finding, dual lumen right-sided central venous catheter with the tip in the region of the right atrium. Hospital course: patient was admitted and found to have MSSA bacteremia, originating from dialysis catheter, both catheter tip and blood cultures grew MSSA, he was treaed with with IV vancomycin and is now being transitioned to IV Kefzol 2 gram post dialyis per ID (Dr. Douglas) recommendation--This case antibiotics with Dr. Michaud and will help coordinate this with dialysis center. Patient for now will go back to center-based hemodialysis MWF, rather than home dialysis. He is experiencing steal syndrom with discomfort to the arm and has been evaluated by Dr. Handy (vascular surgeon ) and will further assess it on outpatient basis. Time Spent with Patient Time attestation: Total time spent providing and/or coordinating discharge services: Discharge coordination time: Greater than 30 minutes Quality: Stroke Does the patient have a stroke diagnosis?: No Physical Exam Vital Signs: Vital Signs: Last Vital Signs Temp 96 F L 04/27/21 06:48 Pulse 84 04/27/21 06:48 Resp 16 04/27/21 06:48 BP 132/61 04/27/21 06:48 Pulse Ox 98 04/27/21 06:48 Body Mass Index 26.0 Const: Other: General: AO X 3, no acute distress Resp: CTA bilateral CVS: S1,S2,RRR GI: +BS, NT, no distention Skin: No rash Neuro: motor grossly intact Psych: appropriate affect DS: Data Data Completed and Pending Completed studies during hospitalization [Text1]: Procedures Insertion of Infusion Device into Superior Vena Cava, Percutaneous Approach (07/22/20) Performance of Urinary Filtration, Intermittent, Less than 6 Hours Per Day (07/22/20) Ultrasonography of Superior Vena Cava, Guidance (07/22/20) Labs on day of discharge: Laboratory Results - last 24 hr 04/27/21 06:45 PT 26.4 H INR 2.3 H Discharge Plan Discharge Anticipated Discharge Date/Time: 04/27/21 12:39 Patient Disposition: Home, Self-Care Discharge Diagnosis: Sepsis, MSSA bacteremia Referrals: [facility] [Physician] - 1 Week Discharge Medications: New cefazolin 1 gram recon soln 2 g IV MOWEFR Qty: 12 RF: 0 Continued acetaminophen 325 mg Tablet 650 mg PO Q6H PRN (Reason: Pain) RF: 0 warfarin 5 mg tablet 7.5 mg PO DAILY@1800 RF: 0 sevelamer carbonate 800 mg tablet 2,400 mg PO TIDAC RF: 0 cholecalciferol (vitamin D3) 50 mcg (2,000 unit) capsule 1 cap PO DAILY RF: 0 Discharge Orders: Discharge Order (Routine); Ordered 04/27/21 Ordered By: Dionicio Almeida Diet: advance to usual diet Activity on Discharge: As tolerated Stand Alone Forms: Patient Portal Discharge page Care Plan Goals: Resolution of bacteremia Health Concerns: Bacteremia, infected dialysis catheter Plan of Treatment: Take Kezol 2 gram post dialysis for 4 weeks To have blood cultures repeat at next dialysis Assessment: as above Discharge Date/Time: 04/27/21 15:57
[2021-04-27] MEDS: 0.9 % Sodium Chloride Flush 3 ML SYRINGE IVFLUSH ×2 (13:01)
[2021-04-27] MEDS: Cholecalciferol (Vitamin D3) 25 MCG TABLET 50 MCG PO (13:01)
[2021-04-27] MEDS: ceFAZolin Sodium/Dextrose,Iso 2 GM/50 ML PIGGYBACK IV (13:03)
--- NOTE | 2021-04-27 13:30 | MHC.CM.PN ---
Male 25 DX Vomiting is discharged to home today. He is set up for HS 3x a week @ [facility] [address]. His family is providing transportation home.
== END 2021-04-27 15:57 | disposition home or self-care (01) | DRG 711 ==
LOC: HO.ED 18:21 → HO.EDOVER 22:45 → HO.IMC 04-24 14:12
PROVIDERS: Hospitalist; Physician Assistant; Admitting Provider Internal Medicine; Emergency Provider Emergency Medicine; PCP Nurse Practitioner; Visit Provider Internal Medicine
DX: T80.211A Bloodstream infection due to central venous catheter, initial encounter (principal); A41.02 Sepsis due to Methicillin resistant Staphylococcus aureus; E87.2 Acidosis; T82.898A Other specified complication of vascular prosthetic devices, implants and grafts, initial encounter; I12.0 Hypertensive chronic kidney disease with stage 5 chronic kidney disease or end stage renal disease; N18.6 End stage renal disease; D63.1 Anemia in chronic kidney disease; Z99.2 Dependence on renal dialysis; Z20.822 Contact with and (suspected) exposure to COVID-19; Z79.01 Long term (current) use of anticoagulants; Z88.6 Allergy status to analgesic agent; Z79.899 Other long term (current) drug therapy
CPT/HCPCS: 36415; 36589; 71045; 80048; 80053; 80076; 80202; 83605; 83690; 83735; 83880; 84484; 85025; 85610; 87040; 87071; 87077; 87147; 87186; 87205; 87635; 90999; 93005; 93971; 96361; 96365; 96375; 99285; 99291; J0690; J0692; J0696; J2405; J3370

== ENCOUNTER 2021-06-14 17:53 | Emergency (ER) | payer MEDICAID, SELFPAY | END 2021-06-14 23:06 | disposition left against medical advice (07) | PROVIDERS: Emergency Provider Emergency Medicine; PCP Nurse Practitioner | DX: M54.9 Dorsalgia, unspecified (principal); Z20.822 Contact with and (suspected) exposure to COVID-19 ==

== ENCOUNTER 2021-08-18 23:56 | Emergency (ER) | payer MEDICAID, SELFPAY ==
[2021-08-19 00:01] VITALS: BP 125/69; PULSE 73; RESP 16; TEMP 36.8; O2SAT 99; BMI 25.8
--- NOTE | 2021-08-19 01:16 | ED_ITS ---
HPI - General Adult General Chief complaint: General Medical Stated complaint: missed dialysis 3, weakness, diarrhea, back pain Time Seen by Provider: 08/19/21 01:16 Source: patient Mode of arrival: ambulatory Limitations: no limitations History of Present Illness HPI narrative: Patient's history of end-stage renal disease on hemodialysis been having diarrhea since yesterday multiple times feel weak andmissed his dialysis yesterday also complaining of back pain patient missed his Coumadin for 3- 4 days supposed to take 10 mg daily but as he missed his medication he took 20 mg at 17:00 no nausea no vomiting Related Data Home Medications Medication Instructions Recorded Confirmed acetaminophen 325 mg tablet 650 mg PO Q6H PRN 04/23/21 04/23/21 cholecalciferol (vitamin D3) 50 1 cap PO DAILY 04/23/21 04/23/21 mcg (2,000 unit) capsule sevelamer carbonate 800 mg tablet 2,400 mg PO TIDAC 04/23/21 04/23/21 warfarin 5 mg tablet 7.5 mg PO DAILY@1800 04/23/21 04/23/21 Previous Rx's Medication Instructions Recorded cefazolin 1 gram solution for 2 g IV MOWEFR #12 ea 04/27/21 injection cyclobenzaprine 10 mg tablet 10 mg PO Q8H #20 tab 08/19/21 loperamide 2 mg tablet (Imodium 2 mg PO Q6H PRN #10 tab 08/19/21 A-D) oxycodone 5 mg tablet 5 mg PO Q6H PRN #20 tab 08/19/21 Allergies Allergy/AdvReac Type Severity Reaction Status Date / Time NSAIDS (Non-Steroidal AdvReac Unknown KIDNEY Verified 07/23/20 14:35 Anti-Inflamma DISEASE [NSAIDS (NON-STEROIDAL ANTI-INFLAMMA] Review of Systems Review of Systems: Yes all other systems are reviewed and are negative [facility] Past Medical History Medical History Anemia in chronic kidney disease AV fistula Chronic kidney disease ESRD (end stage renal disease) Hypertension Hypertension Renal failure, acute on chronic 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 Social History Social History Household Members: Family Household Members Other:: mother Housing: House Do you presently have visiting nurse or other home services: Yes (rn perinatal) Alcohol intake: never Patient Tobacco Use Status: Tobacco use Unknown Substance Use Type: Marijuana Advance Directives: No Advance Directives Date on File: 07/23/20 service: No Current occupational status: unemployed Physical Exam ED Vital Signs: Vital Signs - 24 hr 08/19/21 00:01 08/19/21 02:18 Temperature 98.3 F Pulse Rate 73 68 Respiratory Rate 16 16 Blood Pressure 125/69 134/71 Pulse Oximetry 99 100 BMI result Body Mass Index 25.8 Appearance: Alert. Oriented X3. No acute distress. ENT: Pharynx normal. Oral Mucosa moist Neck: Normal inspection. Neck supple. CVS: Normal heart rate and rhythm. Pulses normal. Respiratory: No respiratory distress. Equal air entry bilateral, no wheezing/rales/rhonchi Abdomen: Soft and nontender. Bowel sounds are present, no mass palpable, no CVA tenderness back: Diffuse muscle tenderness no focal spinal tenderness Skin: Skin warm and dry. Normal skin color. Normal skin turgor. Extremities: No lower extremity edema. Av fistula intact bruit + neuro alert and oriented x3 Medical Decision Making MDM Narrative Medical decision making narrative: Patient elevated BUN creatinine has he misses dialysis will be getting dialysis tomorrow potassium level is normal will discharge patient home Lab Data Lab results reviewed: Yes I reviewed the patient's lab results. Result diagrams: 08/19/21 01:29 08/19/21 01:29 Labs: Lab Results 08/19/21 08/19/21 08/19/21 Range/Units 01:29 01:29 01:29 WBC 7.8 (4.8-10.8) X10*3/uL RBC 3.50 L D (4.60-5.80) X10*6/uL Hgb 10.5 L D (14.0-18.0) g/dl Hct 31.1 L D (42.0-52.0) % MCV 88.9 (80.0-98.0) fL MCH 30.0 (27.0-33.0) pg MCHC 33.8 (31.0-36.0) g/dl RDW 13.6 (11.0-16.0) % Plt Count 141 L D (160-400) X10*3/uL MPV 10.6 (9.4-12.4) fL Immature Gran % (Auto) 0.3 (0.0-0.4) % Neut % (Auto) 62.9 (45-73) % Lymph % (Auto) 27.8 (20-40) % [place] % (Auto) 5.8 (2-11) % Eos % (Auto) 2.8 (0-4) % Baso % (Auto) 0.4 (0-2) % Lymph # (Auto) 2.2 (1.2-4.9) X10*3/uL [place] # (Auto) 0.5 (0.1-1.2) X10*3/uL Eos # (Auto) 0.2 (0.0-0.4) X10*3/uL Baso # (Auto) 0.0 (0.0-0.2) X10*3/uL Abs Immat Gran (auto) 0.02 (0.00-0.03) X10*3/uL Absolute Neuts (auto) 4.9 (2.0-8.3) x10*3/uL Absolute Nucleated RBC 0.000 (0.0-0.012) X10*3/uL Nucleated RBC % (auto) 0.0 (0.0-0.2) /100WBC Sodium 140 (135-145) mmol/L Potassium 4.7 D (3.3-5.1) mmol/L Chloride 101 (96-108) mmol/L Carbon Dioxide 21 L (22-29) mmol/L Anion Gap 23 H (12-20) BUN 57 H (9-16) mg/dL Creatinine 16.62 H* (0.5-1.4) mg/dL Estim Creat Clear Calc 6.5 Estimated GFR 4 Random Glucose 98 (60-115) mg/dL Calcium 9.6 D (8.4-10.2) mg/dL COVID-19 ([facility]LER) Negative (Negative) COVID-19 Clin Com See Note Discharge Plan Discharge Clinical Impression: Acute gastroenteritis, Back pain Patient Disposition: Home, Self-Care Instructions: Acute Diarrhea (ED), Back Pain (ED) Additional Instructions: Have dialysis in the morning as scheduled Imodium for diarrhea Do not overdose with Coumadin Have INR checked at dialysis center Pain medication as prescribed Prescriptions: New cyclobenzaprine 10 mg tablet 10 mg PO Q8H Qty: 20 0RF oxycodone 5 mg tablet 5 mg PO Q6H PRN (Reason: Pain, Moderate) Qty: 20 0RF loperamide [Imodium A-D] 2 mg tablet 2 mg PO Q6H PRN (Reason: loose stool) Qty: 10 0RF No Action acetaminophen 325 mg Tablet 650 mg PO Q6H PRN (Reason: Pain) 0RF warfarin 5 mg tablet 7.5 mg PO DAILY@1800 0RF sevelamer carbonate 800 mg tablet 2,400 mg PO TIDAC 0RF cholecalciferol (vitamin D3) 50 mcg (2,000 unit) capsule 1 cap PO DAILY 0RF cefazolin 1 gram recon soln 2 g IV MOWEFR Qty: 12 0RF Rx Instructions: to be given post dialysis Interventions: ED Discharge Assessment Last Done: 08/19/21 03:02 Discharge Date/Time: 08/19/21 03:03
[2021-08-19 01:35] LABS: Basophils Percent Auto 0.4 % (0-2); Eosinophils Absolute Auto 0.2 X10*3/uL (0.0-0.4); Eosinophils Percent Auto 2.8 % (0-4); Hematocrit 31.1 % (42.0-52.0); Hemoglobin 10.5 g/dl (14.0-18.0); Imm Gran Abs Auto 0.02 X10*3/uL (0.00-0.03); Imm Gran Pct Auto 0.3 % (0.0-0.4); Lymphocytes Absolute Auto 2.2 X10*3/uL (1.2-4.9); Lymphocytes Percent Auto 27.8 % (20-40); MANUAL DIFF FLAG NO; Mean Corpuscular HGB Conc 33.8 g/dl (31.0-36.0); Mean Corpuscular Volume 88.9 fL (80.0-98.0); Mean Platelet Volume 10.6 fL (9.4-12.4); Monocytes Absolute Auto 0.5 X10*3/uL (0.1-1.2); Monocytes Percent Auto 5.8 % (2-11); Neutrophils Absolute Auto 4.9 x10*3/uL (2.0-8.3); Neutrophils Percent Auto 62.9 % (45-73); Platelet Count 141 X10*3/uL (160-400); Red Cell Distribution Width 13.6 % (11.0-16.0); White Blood Count 7.8 X10*3/uL (4.8-10.8)
[2021-08-19] MEDS: oxyCODONE HCl Immed Release 5 MG TABLET 10 MG PO (01:48)
[2021-08-19] MEDS: Loperamide HCl 2 MG CAPSULE 4 MG PO (01:49)
[2021-08-19 01:50] LABS: COVID-19 Test Negative (Negative)
[2021-08-19 01:56] LABS: Anion Gap 23 (12-20); Blood Urea Nitrogen 57 mg/dL (9-16); Calcium 9.6 mg/dL (8.4-10.2); Carbon Dioxide 21 mmol/L (22-29); Chloride 101 mmol/L (96-108); Creatinine Clr Calc Pharmacy 6.5; Estimated Glomerular Filt Rate 4; Glucose Random 98 mg/dL (60-115); Potassium 4.7 mmol/L (3.3-5.1); Sodium 140 mmol/L (135-145)
[2021-08-19 02:18] VITALS: BP 134/71; PULSE 68; RESP 16; O2SAT 100
== END 2021-08-19 03:03 | disposition home or self-care (01) ==
PROVIDERS: Emergency Provider Internal Medicine
DX: K52.9 Noninfective gastroenteritis and colitis, unspecified (principal); M54.50 Low back pain, unspecified; Z20.822 Contact with and (suspected) exposure to COVID-19; Z79.899 Other long term (current) drug therapy
CPT/HCPCS: 80048; 85025; 87635; 99283; 99284

== ENCOUNTER 2021-11-09 10:51 | Outpatient (REF) | payer MEDICAID, SELFPAY ==
--- NOTE | ~2021-11-09 | XR_ITS ---
EXAMINATION: LUMBAR SPINE AND RIGHT KNEE CLINICAL INFORMATION: Low back pain COMPARISON: None TECHNIQUE: 3 views lumbar spine 4 views right knee FINDINGS: Lumbar spine: There is normal lumbar lordosis. The vertebral heights, alignment and disc heights are normal. There is no visible acute fracture, dislocation or subluxation seen. No lytic or sclerotic process seen. There is moderate stool seen throughout the colon. Right knee: The tricompartment joint space is maintained normal. There is no visible fracture, dislocation or joint effusion. No bony erosive changes. The soft tissues are normal. XR/XR lumbar spine 2-3V IMPRESSION: Unremarkable lumbar spine and right knee exam.
--- NOTE | ~2021-11-09 | XR_ITS ---
EXAMINATION: LUMBAR SPINE AND RIGHT KNEE CLINICAL INFORMATION: Low back pain COMPARISON: None TECHNIQUE: 3 views lumbar spine 4 views right knee FINDINGS: Lumbar spine: There is normal lumbar lordosis. The vertebral heights, alignment and disc heights are normal. There is no visible acute fracture, dislocation or subluxation seen. No lytic or sclerotic process seen. There is moderate stool seen throughout the colon. Right knee: The tricompartment joint space is maintained normal. There is no visible fracture, dislocation or joint effusion. No bony erosive changes. The soft tissues are normal. XR/XR knee RT 4V IMPRESSION: Unremarkable lumbar spine and right knee exam.
== END 2021-11-09 10:52 | disposition home or self-care (01) ==
LOC: HO.XRAY 10:51
PROVIDERS: PCP Internal Medicine; Visit Provider Internal Medicine
DX: M25.561 Pain in right knee (principal); M54.50 Low back pain, unspecified
CPT/HCPCS: 72100; 73564

== ENCOUNTER 2021-12-19 21:11 | Emergency (ER) | payer MEDICAID, SELFPAY ==
--- NOTE | ~2021-12-19 | XR_ITS ---
EXAMINATION: XR KNEE, RIGHT CLINICAL INFORMATION: Knee pain COMPARISON: Right knee 11/09/2021 TECHNIQUE: Four views of the right knee. FINDINGS: There is periosteal thickening involving the anterolateral tibial metaphysis/diaphysis. There is a small subtle defect in the cortex seen medially. A small rounded area of lucency seen on the lateral radiograph represents this cortical defect seen en face. No fracture is seen. No joint effusion. XR/XR knee RT 2V IMPRESSION: Small cortical defect with some prominent periosteal reaction. Because it is somewhat unusual, MRI of the knee and proximal tibia is recommended to exclude an underlying lesion. There is possible the findings could be due to benign causes such as bone resorption around a tendinous injury.
[2021-12-19 21:24] VITALS: BP 151/81; PULSE 83; RESP 16; TEMP 36.8; O2SAT 99; BMI 24.7
== END 2021-12-20 00:16 | disposition left against medical advice (07) ==
PROVIDERS: Emergency Provider Emergency Medicine
DX: M25.561 Pain in right knee (principal); M54.9 Dorsalgia, unspecified
CPT/HCPCS: 73560; 99281; 99283

== ENCOUNTER 2022-04-15 13:55 | Emergency (ER) | payer MEDICAID, SELFPAY ==
--- NOTE | 2022-04-15 | ECG_ITS ---
Test Reason : ABD PAIN Blood Pressure : / mmHG Vent. Rate : 083 BPM Atrial Rate : 083 BPM P-R Int : 132 ms QRS Dur : 090 ms QT Int : 378 ms P-R-T Axes : 067 015 019 degrees QTc Int : 444 ms Normal sinus rhythm Minimal voltage criteria for LVH, may be normal variant ( R in aVL ) Borderline ECG When compared with ECG of 23-APR-2021 23:23, Vent. rate has decreased BY 90 BPM QRS duration has increased ST no longer depressed in Inferior leads T wave amplitude has increased in Lateral leads Referred By: Generic ED Physician Electronically Signed By:SRINIVASAN MCFARLAND MD
--- NOTE | ~2022-04-15 | XR_ITS ---
EXAMINATION: XR CHEST CLINICAL INFORMATION: Chest pain COMPARISON: 04/23/2021 TECHNIQUE: Frontal view of the chest was obtained. FINDINGS: No acute finding. The cardiac silhouette is comparable. Lung ashley are mostly clear comparable to previous. There is no effusion. The hilar structures do not appear pathologically enlarged. XR/XR chest 1V IMPRESSION: No acute finding.
--- NOTE | ~2022-04-15 | NM_ITS ---
PULMONARY PERFUSION ONLY STUDY: CLINICAL INDICATION: Chest pain. Suspected pulmonary thromboembolism. PROCEDURE: Following the intravenous administration of 3.2 millicuries technetium 99m MAA, images of the chest were obtained in multiple projections using a gamma scintiphotographic camera. The radiotracer was injected through right antecubital superficial vein without complications. COMPARISON: Chest radiograph done earlier today. The chest radiograph shows bilateral clear lung ashley. PERFUSION IMAGES: No segmental perfusion defects or other perfusion abnormalities are noted. NM/NM pul perfusion IMPRESSION: Based on perfusion only modified PIOPED 2 criteria, pulmonary thromboembolism is considered to be absent.
[2022-04-15 14:15] VITALS: BP 146/71; BP 164/84; PULSE 81; PULSE 82; RESP 14; TEMP 37.3; O2SAT 98; O2SAT 99; BMI 25.4
--- NOTE | 2022-04-15 14:27 | ED.CHESTPAIN ---
HPI - Chest Pain General Chief Complaint: Chest Pain Stated Complaint: ABD PAIN Time Seen by Provider: 04/15/22 14:27 Source: patient Mode of arrival: ambulatory Limitations: no limitations History of Present Illness HPI narrative: 26-year-old male history of kidney failure due to family history on dialysis presents to the ED for chest pain. Patient yesterday states she had 1 episode of chest pain that lasted for 2 minutes. Patient states today while at dialysis 40 minutes in he had a chest pain that lasted for about 2 minutes. Patient was given nitrates and chest pain improved. Patient denies any leg swelling, coughing up blood, pleurisy, calf pain, recent long travel. Patient denies missing dose of dialysis. Patient is on Coumadin but did miss 3 days of Coumadin doses. Patient states years ago while introducing AV fistula his Doctor realized he had left upper extremity DVT which required him to be on Coumadin. Related Data Home Medications Medication Instructions Recorded Confirmed acetaminophen 325 mg tablet 650 mg PO Q6H PRN Pain 04/23/21 04/23/21 cholecalciferol (vitamin D3) 50 1 cap PO DAILY 04/23/21 04/23/21 mcg (2,000 unit) capsule sevelamer carbonate 800 mg tablet 2,400 mg PO TIDAC 04/23/21 04/23/21 warfarin 5 mg tablet 7.5 mg PO DAILY@1800 04/23/21 04/23/21 Previous Rx's Medication Instructions Recorded cefazolin 1 gram solution for 2 g IV MOWEFR #12 ea 04/27/21 injection cyclobenzaprine 10 mg tablet 10 mg PO Q8H #20 tabs 08/19/21 loperamide 2 mg tablet (Imodium 2 mg PO Q6H PRN loose stool #10 08/19/21 A-D) tabs oxycodone 5 mg tablet 5 mg PO Q6H PRN Pain, Moderate #20 08/19/21 tabs Allergies Allergy/AdvReac Type Severity Reaction Status Date / Time No Known Allergies Allergy Verified 12/19/21 21:23 Review of Systems Review of Systems: Improved resolved chest pain Yes all other systems are reviewed and are negative PMFSH Past Medical History Medical History Anemia in chronic kidney disease AV fistula Chronic kidney disease ESRD (end stage renal disease) Hypertension Hypertension Renal failure, acute on chronic 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 Social History Social History Household Members: Family Household Members Other:: mother Housing: House Do you 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 have 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) Alcohol intake: never Patient Tobacco Use Status: Tobacco use Unknown Substance Use Type: Marijuana Advance Directives: No Advance Directives Information Provided: No Advance Directives Date on File: 07/23/20 service: No Current occupational status: unemployed Physical Exam Vital Signs: Vital Signs: Last Vital Signs Temp 98.0 F 04/15/22 15:58 Pulse 89 04/15/22 15:58 Resp 18 04/15/22 15:58 BP 134/60 04/15/22 15:58 Pulse Ox 99 04/15/22 15:58 O2 Del Method 04/15/22 15:58 BMI result Body Mass Index 25.4 Const: General: cooperative, healthy appearing, comfortable, no acute distress, well developed, alert, awake and Physically active Orientation/consciousness: patient oriented x3 HEENT: Head: Yes normal to inspection, Yes No palpable skull fracture present, Yes normocephalic, Yes atraumatic and No abrasion Eyes: General: appearance normal, both eyes and all related structures Neck: Neck: Yes normal visual inspection, Yes full ROM, Yes no lymphadenopathy, Yes no meningeal signs, Yes trachea midline, Yes supple, No anterior neck swelling and No tender Chest: Chest palpation & inspection: normal inspection of the chest and normal palpation of entire chest wall Resp: Effort & Inspection: normal respiratory effort and able to speak in complete sentences Auscultation: clear to auscultation bilaterally Cardio: Jugular venous distension: no JVD Heart sounds: S1 normal heart sound present and S2 normal heart sound present GI: Inspection: Yes normal to inspection and No abdominal wall ecchymosis Palpation (GI): Soft to palpation, not firm, nontender, no guarding and not rigid : General: No CVA tenderness and Yes no CVA tenderness Back/Spine/Pelvis: Back: no CVA tenderness, No CVA tenderness and No back tenderness Skin: General skin exam: no rashes or lesions noted and elasticity normal Neuro: General: patient oriented x3, gait normal, tone normal, no meningeal signs and CN's II-XI intact bilaterally Cranial nerves: Yes CN's II-XII intact bilaterally Extrem: Other: Lower extremities negative for pitting edema, swelling, or calf pain. General: Yes normal to inspection and Yes full ROM Psych: Appearance: grossly normal, well kempt and not disheveled Course Course Course Narrative: Patient well-appearing. We will do EKG labs including troponin BNP and coags. Will add a chest x-ray. COVID swab ordered Reevaluation(s) Reevaluation #1: EKG negative STEMI. Patient was sent for nuclear ventilation perfusion scan to rule out PE. Patient cannot have IV contrast due to kidney function. presently patient denies pleurisy or leg swelling or calf pain. Patient states he did not take her Coumadin for 3 days and INR levels only 1 where should be between 2 and 3. First troponin negative. BNP negative. X-ray negative for pneumonia. COVID negative. Time: 16:50 Reevaluation #2: Patient presently asymptomatic. Pulmonary perfusion scan negative for PE. Chest x-ray normal. Patient waiting comfortably in bed. Oxycodone ordered for lower chronic back pain Time: 17:07 Reevaluation #3: Second troponin negative. Patient is safe for discharge. Patient eating subway sandwich and asytmpatomtic. Time: 17:32 MDM - Chest Pain MDM Narrative Medical decision making narrative: Atypical chest pain Differential Diagnosis Differential diagnosis: Normal sinus rhythm. Reticular 85. UT interval 132. QRS 90. QTC 444. Negative STEMI Lab Data Result diagrams: 04/15/22 14:47 04/15/22 14:47 Labs: Lab Results 04/15/22 04/15/22 04/15/22 Range/Units 14:47 14:47 14:47 WBC 6.0 (4.8-10.8) X10*3/uL RBC 3.23 L (4.60-5.80) X10*6/uL Hgb 10.0 L (14.0-18.0) g/dl Hct 28.8 L (42.0-52.0) % MCV 89.2 (80.0-98.0) fL MCH 31.0 (27.0-33.0) pg MCHC 34.7 (31.0-36.0) g/dl RDW 12.7 (11.0-16.0) % Plt Count 112 L (160-400) X10*3/uL MPV 10.4 (9.4-12.4) fL Immature Gran % (Auto) 0.3 (0.0-0.4) % Neut % (Auto) 73.5 H (45-73) % Lymph % (Auto) 17.3 L (20-40) % [place] % (Auto) 7.4 (2-11) % Eos % (Auto) 1.0 (0-4) % Baso % (Auto) 0.5 (0-2) % Lymph # (Auto) 1.0 L (1.2-4.9) X10*3/uL [place] # (Auto) 0.4 (0.1-1.2) X10*3/uL Eos # (Auto) 0.1 (0.0-0.4) X10*3/uL Baso # (Auto) 0.0 (0.0-0.2) X10*3/uL Abs Immat Gran (auto) 0.02 (0.00-0.03) X10*3/uL Absolute Neuts (auto) 4.4 (2.0-8.3) x10*3/uL Absolute Nucleated RBC 0.000 (0.0-0.012) X10*3/uL Nucleated RBC % (auto) 0.0 (0.0-0.2) /100WBC PT (10.0-13.1) SEC INR (0.9-1.1) APTT (26.0-36.4) SEC Sodium 141 (135-145) mmol/L Potassium 4.5 (3.3-5.1) mmol/L Chloride 94 L (96-108) mmol/L Carbon Dioxide 35 H (22-29) mmol/L Anion Gap 17 (12-20) BUN 30 H (9-16) mg/dL Creatinine 8.88 H* (0.5-1.4) mg/dL Estim Creat Clear Calc 12.3 Estimated GFR 7 Random Glucose 114 (60-115) mg/dL Calcium 10.4 H D (8.4-10.2) mg/dL Total Bilirubin 0.5 (0.0-1.0) mg/dL AST 9 (5-37) U/L ALT 24 (0-40) U/L Alkaline Phosphatase 107 D (39-117) U/L Troponin I High Sens 6.0 (<3.5-35.0) ng/L B-Natriuretic Peptide 57 (<100) pg/mL Total Protein 7.5 (6.5-8.0) g/dL Albumin 4.6 D (3.5-5.0) g/dL COVID-19 ([facility]) (Negative) COVID-19 Clin Com 04/15/22 04/15/22 04/15/22 Range/Units 14:47 14:47 16:45 WBC (4.8-10.8) X10*3/uL RBC (4.60-5.80) X10*6/uL Hgb (14.0-18.0) g/dl Hct (42.0-52.0) % MCV (80.0-98.0) fL MCH (27.0-33.0) pg MCHC (31.0-36.0) g/dl RDW (11.0-16.0) % Plt Count (160-400) X10*3/uL MPV (9.4-12.4) fL Immature Gran % (Auto) (0.0-0.4) % Neut % (Auto) (45-73) % Lymph % (Auto) (20-40) % [place] % (Auto) (2-11) % Eos % (Auto) (0-4) % Baso % (Auto) (0-2) % Lymph # (Auto) (1.2-4.9) X10*3/uL [place] # (Auto) (0.1-1.2) X10*3/uL Eos # (Auto) (0.0-0.4) X10*3/uL Baso # (Auto) (0.0-0.2) X10*3/uL Abs Immat Gran (auto) (0.00-0.03) X10*3/uL Absolute Neuts (auto) (2.0-8.3) x10*3/uL Absolute Nucleated RBC (0.0-0.012) X10*3/uL Nucleated RBC % (auto) (0.0-0.2) /100WBC PT 11.0 (10.0-13.1) SEC INR 1.0 (0.9-1.1) APTT 28.2 (26.0-36.4) SEC Sodium (135-145) mmol/L Potassium (3.3-5.1) mmol/L Chloride (96-108) mmol/L Carbon Dioxide (22-29) mmol/L Anion Gap (12-20) BUN (9-16) mg/dL Creatinine (0.5-1.4) mg/dL Estim Creat Clear Calc Estimated GFR Random Glucose (60-115) mg/dL Calcium (8.4-10.2) mg/dL Total Bilirubin (0.0-1.0) mg/dL AST (5-37) U/L ALT (0-40) U/L Alkaline Phosphatase (39-117) U/L Troponin I High Sens 4.1 (<3.5-35.0) ng/L B-Natriuretic Peptide (<100) pg/mL Total Protein (6.5-8.0) g/dL Albumin (3.5-5.0) g/dL COVID-19 ([facility]) Negative (Negative) COVID-19 Clin Com See Note Discharge Plan Discharge Clinical Impression: Atypical chest pain Patient Disposition: Home, Self-Care Additional Instructions: EKG and blood work came back negative for signs of a heart attack. Your V/Q scan came back negative for pulmonary embolism. X-ray came back negative for COVID or heart failure. COVID swab negative. Electrolytes are normal. You are safe for discharge. Please follow-up with primary care provider and looping inspector. Return to the ED immediately for any leg swelling, calf pain, coughing up blood, chest pain, shortness of breath, chest pain on inspiration, coughing up blood, weakness, dizziness, or any other concerning symptoms. Recommend being compliant with your Coumadin. Your INR should be between 2 and 3. Prescriptions: No Action acetaminophen 325 mg Tablet 650 mg PO Q6H PRN (Reason: Pain) warfarin 5 mg tablet 7.5 mg PO DAILY@1800 sevelamer carbonate 800 mg tablet 2,400 mg PO TIDAC cholecalciferol (vitamin D3) 50 mcg (2,000 unit) capsule 1 cap PO DAILY cefazolin 1 gram recon soln 2 g IV MOWEFR Qty: 12 0RF Rx Instructions: to be given post dialysis cyclobenzaprine 10 mg tablet 10 mg PO Q8H Qty: 20 0RF oxycodone 5 mg tablet 5 mg PO Q6H PRN (Reason: Pain, Moderate) Qty: 20 0RF loperamide [Imodium A-D] 2 mg tablet 2 mg PO Q6H PRN (Reason: loose stool) Qty: 10 0RF Interventions: ED Discharge Assessment Last Done: 04/15/22 17:43 Discharge Date/Time: 04/15/22 17:43 Print Language: Thai
[2022-04-15 14:57] LABS: MANUAL DIFF FLAG NO
[2022-04-15 14:58] LABS: Basophils Percent Auto 0.5 % (0-2); Eosinophils Absolute Auto 0.1 X10*3/uL (0.0-0.4); Hematocrit 28.8 % (42.0-52.0); Imm Gran Abs Auto 0.02 X10*3/uL (0.00-0.03); Imm Gran Pct Auto 0.3 % (0.0-0.4); Lymphocytes Percent Auto 17.3 % (20-40); Mean Corpuscular HGB Conc 34.7 g/dl (31.0-36.0); Mean Corpuscular Volume 89.2 fL (80.0-98.0); Mean Platelet Volume 10.4 fL (9.4-12.4); Monocytes Absolute Auto 0.4 X10*3/uL (0.1-1.2); Monocytes Percent Auto 7.4 % (2-11); Neutrophils Absolute Auto 4.4 x10*3/uL (2.0-8.3); Neutrophils Percent Auto 73.5 % (45-73); Platelet Count 112 X10*3/uL (160-400); Red Blood Count 3.23 X10*6/uL (4.60-5.80); Red Cell Distribution Width 12.7 % (11.0-16.0)
[2022-04-15 15:08] LABS: Partial Thromboplastin Time 28.2 SEC (26.0-36.4)
[2022-04-15 15:13] LABS: COVID-19 Test Negative (Negative)
[2022-04-15 15:18] LABS: Alanine Aminotransferase 24 U/L (0-40); Albumin Level 4.6 g/dL (3.5-5.0); Alkaline Phosphatase 107 U/L (39-117); Anion Gap 17 (12-20); Aspartate Amino Transferase 9 U/L (5-37); B Type Natriuretic Peptide 57 pg/mL (<100); Bilirubin Total 0.5 mg/dL (0.0-1.0); Blood Urea Nitrogen 30 mg/dL (9-16); Calcium 10.4 mg/dL (8.4-10.2); Carbon Dioxide 35 mmol/L (22-29); Chloride 94 mmol/L (96-108); Creatinine Clr Calc Pharmacy 12.3; Estimated Glomerular Filt Rate 7; Glucose Random 114 mg/dL (60-115); Potassium 4.5 mmol/L (3.3-5.1); Sodium 141 mmol/L (135-145); Total Protein 7.5 g/dL (6.5-8.0)
[2022-04-15 15:58] VITALS: BP 134/60; PULSE 89; RESP 18; TEMP 36.7; O2SAT 99
[2022-04-15 17:16] LABS: Troponin-I High Sensitivity 4.1 ng/L (<3.5-35.0)
[2022-04-15] MEDS: oxyCODONE HCl Immed Release 5 MG TABLET PO (17:23)
== END 2022-04-15 17:43 | disposition home or self-care (01) ==
PROVIDERS: Physician Assistant; Emergency Provider Emergency Medicine
DX: R07.89 Other chest pain (principal); R06.02 Shortness of breath; Z20.822 Contact with and (suspected) exposure to COVID-19; Z79.899 Other long term (current) drug therapy
CPT/HCPCS: 36415; 71045; 78580; 80053; 83880; 84484; 85025; 85610; 85730; 87635; 93005; 99284; 99285; A9540

== ENCOUNTER 2022-11-12 15:03 | Outpatient (REF) | payer MEDICAID, SELFPAY ==
--- NOTE | ~2022-11-12 | XR_ITS ---
EXAMINATION: XR LUMBOSACRAL SPINE CLINICAL INFORMATION: Chronic pain COMPARISON: Previous x-ray August 2021 TECHNIQUE: Three views of the lumbosacral spine. FINDINGS: The vertebral bodies and posterior elements are normal. The disc spaces are preserved and the vertebral alignment is normal. The paraspinal soft tissues are normal. XR/XR lumbar spine 2-3V IMPRESSION: Unremarkable examination.
== END 2022-11-12 15:04 | disposition home or self-care (01) ==
LOC: HO.HHCX 15:03
PROVIDERS: Visit Provider Internal Medicine
DX: M54.50 Low back pain, unspecified (principal); G89.29 Other chronic pain
CPT/HCPCS: 72100

== ENCOUNTER 2022-12-12 14:35 | Emergency (ER) | payer MEDICAID, SELFPAY ==
[2022-12-12 16:00] VITALS: BP 151/87; PULSE 93; RESP 16; TEMP 36.9; O2SAT 100; BMI 24.5
--- NOTE | 2022-12-12 16:00 | ED_ITS ---
HPI - General Adult General Chief complaint: General Medical Stated complaint: post op pain/dizziness Time Seen by Provider: 12/12/22 17:13 Related Data Home Medications Medication Instructions Recorded Confirmed acetaminophen 325 mg tablet 650 mg PO Q6H PRN Pain 04/23/21 04/23/21 cholecalciferol (vitamin D3) 50 1 cap PO DAILY 04/23/21 04/23/21 mcg (2,000 unit) capsule sevelamer carbonate 800 mg tablet 2,400 mg PO TIDAC 04/23/21 04/23/21 warfarin 5 mg tablet 7.5 mg PO DAILY@1800 04/23/21 04/23/21 Previous Rx's Medication Instructions Recorded cefazolin 1 gram solution for 2 g IV MOWEFR #12 ea 04/27/21 injection cyclobenzaprine 10 mg tablet 10 mg PO Q8H #20 tabs 08/19/21 loperamide 2 mg tablet (Imodium 2 mg PO Q6H PRN loose stool #10 08/19/21 A-D) tabs oxycodone 5 mg tablet 5 mg PO Q6H PRN Pain, Moderate #20 08/19/21 tabs Allergies Allergy/AdvReac Type Severity Reaction Status Date / Time No Known Allergies Allergy Verified 12/19/21 21:23 [facility] Past Medical History Medical History Anemia in chronic kidney disease AV fistula Chronic kidney disease ESRD (end stage renal disease) Hypertension Hypertension Renal failure, acute on chronic 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 Social History Social History Household Members: Family Household Members Other:: mother Housing: House Do you presently have 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) Alcohol intake: never Patient Tobacco Use Status: Tobacco use Unknown Smoked in Last 30 Days: No Use of substances other than those prescribed or required for medical reasons: No Substance Use Type: Marijuana Advance Directives: No Advance Directives Information Provided: No Advance Directives Date on File: 07/23/20 service: No Current occupational status: unemployed Physical Exam ED Vital Signs: Vital Signs - 24 hr 12/12/22 16:00 12/12/22 18:05 12/12/22 18:09 Temperature 98.4 F 98.7 F Pulse Rate 93 83 83 Respiratory Rate 16 16 Blood Pressure 151/87 H 125/65 125/65 Pulse Oximetry 100 Oxygen Delivery Method Room Air 12/12/22 18:10 12/12/22 18:11 Temperature Pulse Rate 85 88 Respiratory Rate Blood Pressure 142/81 H 138/73 Pulse Oximetry Oxygen Delivery Method BMI result Body Mass Index 24.5 Course Course Course Narrative: This is an RME: Additional HPI, ROS, PE not included below will be deferred to primary provider. Patient is a 27-year-old male s/p reported parathyroidectomy on 12/07/2022 at [facility], when asked why, it is unclear, but reports that he is a dialysis patient (T,TH,Sa). He presents here today reporting that since discharged from the hospital 2 days ago has been experiencing feeling dizziness/ lightheadedness, hot flashes, vomiting x2 today, hand and legs feel numb, intermittent headache, anterior neck pain. Plan: labs Medications Administered Discontinued Medications Generic Name Dose Route Start Last Admin Trade Name Freq PRN Reason Stop Dose Admin Ondansetron HCl 4 mg 12/12/22 17:46 12/12/22 18:02 Ondansetron Odt 4 Mg Tab.Rapdis TRANSLINGU 12/12/22 17:47 4 mg ONCE ONE Administration Medical Decision Making Lab Data 12/12/22 16:28 12/12/22 16:28 Labs: Lab Results 12/12/22 12/12/22 12/12/22 Range/Units 16:22 16:28 16:28 WBC 7.6 (4.8-10.8) X10*3/uL RBC 3.35 L (4.60-5.80) X10*6/uL Hgb 10.2 L (14.0-18.0) g/dl Hct 30.1 L (42.0-52.0) % MCV 89.9 (80.0-98.0) fL MCH 30.4 (27.0-33.0) pg MCHC 33.9 (31.0-36.0) g/dl RDW 12.6 (11.0-16.0) % Plt Count 156 L D (160-400) X10*3/uL MPV 10.2 (9.4-12.4) fL Immature Gran % (Auto) 0.5 H (0.0-0.4) % Neut % (Auto) 71.9 (45-73) % Lymph % (Auto) 16.8 L (20-40) % [place] % (Auto) 7.9 (2-11) % Eos % (Auto) 2.6 (0-4) % Baso % (Auto) 0.3 (0-2) % Lymph # (Auto) 1.3 (1.2-4.9) X10*3/uL [place] # (Auto) 0.6 (0.1-1.2) X10*3/uL Eos # (Auto) 0.2 (0.0-0.4) X10*3/uL Baso # (Auto) 0.0 (0.0-0.2) X10*3/uL Abs Immat Gran (auto) 0.04 H (0.00-0.03) X10*3/uL Absolute Neuts (auto) 5.5 (2.0-8.3) x10*3/uL Absolute Nucleated RBC 0.000 (0.0-0.012) X10*3/uL Nucleated RBC % (auto) 0.0 (0.0-0.2) /100WBC Sodium 135 (135-145) mmol/L Potassium 4.9 (3.3-5.1) mmol/L Chloride 92 L (96-108) mmol/L Carbon Dioxide 27 (22-29) mmol/L Anion Gap 21 H (12-20) BUN 33 H (9-16) mg/dL Creatinine 10.66 H* (0.5-1.4) mg/dL Estim Creat Clear Calc 10.1 Estimated GFR 6 Random Glucose 91 (60-115) mg/dL Calcium 8.4 D (8.4-10.2) mg/dL Phosphorus 2.7 (2.7-4.5) mg/dL Magnesium 2.4 (1.6-2.6) mg/dL Total Bilirubin 0.7 (0.0-1.0) mg/dL AST 13 (5-37) U/L ALT < 5 (0-40) U/L Alkaline Phosphatase 322 H (39-117) U/L Troponin I High Sens (<3.5-35.0) ng/L Total Protein 8.3 H (6.5-8.0) g/dL Albumin 4.6 (3.5-5.0) g/dL COVID-19 ([facility]LER) Negative (Negative) COVID-19 Clin Com See Note 12/12/22 Range/Units 16:28 WBC (4.8-10.8) X10*3/uL RBC (4.60-5.80) X10*6/uL Hgb (14.0-18.0) g/dl Hct (42.0-52.0) % MCV (80.0-98.0) fL MCH (27.0-33.0) pg MCHC (31.0-36.0) g/dl RDW (11.0-16.0) % Plt Count (160-400) X10*3/uL MPV (9.4-12.4) fL Immature Gran % (Auto) (0.0-0.4) % Neut % (Auto) (45-73) % Lymph % (Auto) (20-40) % [place] % (Auto) (2-11) % Eos % (Auto) (0-4) % Baso % (Auto) (0-2) % Lymph # (Auto) (1.2-4.9) X10*3/uL [place] # (Auto) (0.1-1.2) X10*3/uL Eos # (Auto) (0.0-0.4) X10*3/uL Baso # (Auto) (0.0-0.2) X10*3/uL Abs Immat Gran (auto) (0.00-0.03) X10*3/uL Absolute Neuts (auto) (2.0-8.3) x10*3/uL Absolute Nucleated RBC (0.0-0.012) X10*3/uL Nucleated RBC % (auto) (0.0-0.2) /100WBC Sodium (135-145) mmol/L Potassium (3.3-5.1) mmol/L Chloride (96-108) mmol/L Carbon Dioxide (22-29) mmol/L Anion Gap (12-20) BUN (9-16) mg/dL Creatinine (0.5-1.4) mg/dL Estim Creat Clear Calc Estimated GFR Random Glucose (60-115) mg/dL Calcium (8.4-10.2) mg/dL Phosphorus (2.7-4.5) mg/dL Magnesium (1.6-2.6) mg/dL Total Bilirubin (0.0-1.0) mg/dL AST (5-37) U/L ALT (0-40) U/L Alkaline Phosphatase (39-117) U/L Troponin I High Sens 3.7 (<3.5-35.0) ng/L Total Protein (6.5-8.0) g/dL Albumin (3.5-5.0) g/dL COVID-19 ([facility]LER) (Negative) COVID-19 Clin Com Discharge Plan Discharge Clinical Impression: Viral gastroenteritis Patient Disposition: Home, Self-Care Instructions: Acute Nausea and Vomiting (ED) Additional Instructions: Drink plenty of fluids Medicine for nausea as needed Follow-up with the PCP Prescriptions: No Action acetaminophen 325 mg Tablet 650 mg PO Q6H PRN (Reason: Pain) warfarin 5 mg tablet 7.5 mg PO DAILY@1800 sevelamer carbonate 800 mg tablet 2,400 mg PO TIDAC cholecalciferol (vitamin D3) 50 mcg (2,000 unit) capsule 1 cap PO DAILY cefazolin 1 gram recon soln 2 g IV MOWEFR Qty: 12 0RF Rx Instructions: to be given post dialysis cyclobenzaprine 10 mg tablet 10 mg PO Q8H Qty: 20 0RF oxycodone 5 mg tablet 5 mg PO Q6H PRN (Reason: Pain, Moderate) Qty: 20 0RF loperamide [Imodium A-D] 2 mg tablet 2 mg PO Q6H PRN (Reason: loose stool) Qty: 10 0RF
--- NOTE | 2022-12-12 16:08 | ECG_ITS ---
Test Reason : DIZZINESS Blood Pressure : / mmHG Vent. Rate : 085 BPM Atrial Rate : 085 BPM P-R Int : 134 ms QRS Dur : 082 ms QT Int : 398 ms P-R-T Axes : 041 020 018 degrees QTc Int : 473 ms Normal sinus rhythm Normal ECG When compared with ECG of 15-APR-2022 14:26, No significant change was found Referred By: Erika Jane Electronically Signed By:KAMALA NGUYEN
[2022-12-12 16:32] LABS: MANUAL DIFF FLAG NO
[2022-12-12 16:34] LABS: Basophils Percent Auto 0.3 % (0-2); Eosinophils Absolute Auto 0.2 X10*3/uL (0.0-0.4); Eosinophils Percent Auto 2.6 % (0-4); Hematocrit 30.1 % (42.0-52.0); Hemoglobin 10.2 g/dl (14.0-18.0); Imm Gran Abs Auto 0.04 X10*3/uL (0.00-0.03); Imm Gran Pct Auto 0.5 % (0.0-0.4); Lymphocytes Absolute Auto 1.3 X10*3/uL (1.2-4.9); Lymphocytes Percent Auto 16.8 % (20-40); Mean Corpuscular HGB Conc 33.9 g/dl (31.0-36.0); Mean Corpuscular Hemoglobin 30.4 pg (27.0-33.0); Mean Corpuscular Volume 89.9 fL (80.0-98.0); Mean Platelet Volume 10.2 fL (9.4-12.4); Monocytes Absolute Auto 0.6 X10*3/uL (0.1-1.2); Monocytes Percent Auto 7.9 % (2-11); Neutrophils Absolute Auto 5.5 x10*3/uL (2.0-8.3); Neutrophils Percent Auto 71.9 % (45-73); Platelet Count 156 X10*3/uL (160-400); Red Blood Count 3.35 X10*6/uL (4.60-5.80); Red Cell Distribution Width 12.6 % (11.0-16.0); White Blood Count 7.6 X10*3/uL (4.8-10.8)
[2022-12-12 16:50] LABS: COVID-19 Test Negative (Negative); IDNOW Serial# BCCEAD1C
[2022-12-12 16:53] LABS: Alanine Aminotransferase < 5 U/L (0-40); Albumin Level 4.6 g/dL (3.5-5.0); Alkaline Phosphatase 322 U/L (39-117); Anion Gap 21 (12-20); Aspartate Amino Transferase 13 U/L (5-37); Bilirubin Total 0.7 mg/dL (0.0-1.0); Blood Urea Nitrogen 33 mg/dL (9-16); Calcium 8.4 mg/dL (8.4-10.2); Carbon Dioxide 27 mmol/L (22-29); Chloride 92 mmol/L (96-108); Creatinine Clr Calc Pharmacy 10.1; Estimated Glomerular Filt Rate 6; Glucose Random 91 mg/dL (60-115); Magnesium 2.4 mg/dL (1.6-2.6); Potassium 4.9 mmol/L (3.3-5.1); Sodium 135 mmol/L (135-145); Total Protein 8.3 g/dL (6.5-8.0)
[2022-12-12 16:56] LABS: Troponin-I High Sensitivity 3.7 ng/L (<3.5-35.0)
--- NOTE | 2022-12-12 17:47 | ED.GENADULT ---
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 last 2 years status post parathyroidectomy 4 days ago comes here as since surgery patient with not feeling good feeling dizzy the at dialysis yesterday is still feeling same vomited 2 times today no abdominal pain or no fever no chills no muscle spasm no cough patient denied any numbness no perioral numbness no paresthesias Related Data Home Medications Medication Instructions Recorded Confirmed acetaminophen 325 mg tablet 650 mg PO Q6H PRN Pain 04/23/21 04/23/21 cholecalciferol (vitamin D3) 50 1 cap PO DAILY 04/23/21 04/23/21 mcg (2,000 unit) capsule sevelamer carbonate 800 mg tablet 2,400 mg PO TIDAC 04/23/21 04/23/21 warfarin 5 mg tablet 7.5 mg PO DAILY@1800 04/23/21 04/23/21 Previous Rx's Medication Instructions Recorded cefazolin 1 gram solution for 2 g IV MOWEFR #12 ea 04/27/21 injection cyclobenzaprine 10 mg tablet 10 mg PO Q8H #20 tabs 08/19/21 loperamide 2 mg tablet (Imodium 2 mg PO Q6H PRN loose stool #10 08/19/21 A-D) tabs oxycodone 5 mg tablet 5 mg PO Q6H PRN Pain, Moderate #20 08/19/21 tabs Allergies Allergy/AdvReac Type Severity Reaction Status Date / Time No Known Allergies Allergy Verified 12/19/21 21:23 Review of Systems Review of Systems: Yes all other systems are reviewed and are negative PMFSH Past Medical History Medical History Anemia in chronic kidney disease AV fistula Chronic kidney disease ESRD (end stage renal disease) Hypertension Hypertension Renal failure, acute on chronic 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 Social History Social History Household Members: Family Household Members Other:: mother Housing: House Do you presently have visiting nurse or other home services: Yes (brick burner head) Alcohol intake: never Patient Tobacco Use Status: Tobacco use Unknown Substance Use Type: Marijuana Advance Directives: No Advance Directives Information Provided: No Advance Directives Date on File: 07/23/20 service: No Current occupational status: unemployed Physical Exam ED Vital Signs: Vital Signs - 24 hr 12/12/22 16:00 Temperature 98.4 F Pulse Rate 93 Respiratory Rate 16 Blood Pressure 151/87 H Pulse Oximetry 100 Oxygen Delivery Method Room Air BMI result Body Mass Index 24.5 Appearance: Alert. Oriented X3. No acute distress. Eyes: PERRLA, No Nystagmus ENT: Pharynx normal. Oral Mucosa moist Neck: Normal inspection. Neck supple. Healing surgical scar CVS: Normal heart rate and rhythm. Pulses normal. Respiratory: No respiratory distress. Equal air entry bilateral, no wheezing/rales/rhonchi Abdomen: Soft and nontender. Bowel sounds are present, no mass palpable, no CVA tenderness Skin: Skin warm and dry. Normal skin color. Normal skin turgor. Extremities: No lower extremity edema. No calf tenderness bruit present left arm Neuro: Oriented X 3. No motor deficit. No sensory deficit.No cerebellar signs , cranial nerves II-XII intact Medical Decision Making Medical Decision Making [facility] Narrative: Patient has stable vitals status post parathyroidectomy calcium level 8.4 likely had viral syndrome discharge patient home advised to drink plenty of fluids and follow-up with PCP Lab Data [facility] Lab Attestation statement: I reviewed the patient's lab results. 12/12/22 16:28 12/12/22 16:28 Labs: Lab Results 12/12/22 12/12/22 12/12/22 Range/Units 16:22 16:28 16:28 WBC 7.6 (4.8-10.8) X10*3/uL RBC 3.35 L (4.60-5.80) X10*6/uL Hgb 10.2 L (14.0-18.0) g/dl Hct 30.1 L (42.0-52.0) % MCV 89.9 (80.0-98.0) fL MCH 30.4 (27.0-33.0) pg MCHC 33.9 (31.0-36.0) g/dl RDW 12.6 (11.0-16.0) % Plt Count 156 L D (160-400) X10*3/uL MPV 10.2 (9.4-12.4) fL Immature Gran % (Auto) 0.5 H (0.0-0.4) % Neut % (Auto) 71.9 (45-73) % Lymph % (Auto) 16.8 L (20-40) % Guthrie % (Auto) 7.9 (2-11) % Eos % (Auto) 2.6 (0-4) % Baso % (Auto) 0.3 (0-2) % Lymph # (Auto) 1.3 (1.2-4.9) X10*3/uL Guthrie # (Auto) 0.6 (0.1-1.2) X10*3/uL Eos # (Auto) 0.2 (0.0-0.4) X10*3/uL Baso # (Auto) 0.0 (0.0-0.2) X10*3/uL Abs Immat Gran (auto) 0.04 H (0.00-0.03) X10*3/uL Absolute Neuts (auto) 5.5 (2.0-8.3) x10*3/uL Absolute Nucleated RBC 0.000 (0.0-0.012) X10*3/uL Nucleated RBC % (auto) 0.0 (0.0-0.2) /100WBC Sodium 135 (135-145) mmol/L Potassium 4.9 (3.3-5.1) mmol/L Chloride 92 L (96-108) mmol/L Carbon Dioxide 27 (22-29) mmol/L Anion Gap 21 H (12-20) BUN 33 H (9-16) mg/dL Creatinine 10.66 H* (0.5-1.4) mg/dL Estim Creat Clear Calc 10.1 Estimated GFR 6 Random Glucose 91 (60-115) mg/dL Calcium 8.4 D (8.4-10.2) mg/dL Magnesium 2.4 (1.6-2.6) mg/dL Total Bilirubin 0.7 (0.0-1.0) mg/dL AST 13 (5-37) U/L ALT < 5 (0-40) U/L Alkaline Phosphatase 322 H (39-117) U/L Troponin I High Sens (<3.5-35.0) ng/L Total Protein 8.3 H (6.5-8.0) g/dL Albumin 4.6 (3.5-5.0) g/dL COVID-19 ([facility]LER) Negative (Negative) COVID-19 Clin Com See Note 12/12/22 Range/Units 16:28 WBC (4.8-10.8) X10*3/uL RBC (4.60-5.80) X10*6/uL Hgb (14.0-18.0) g/dl Hct (42.0-52.0) % MCV (80.0-98.0) fL MCH (27.0-33.0) pg MCHC (31.0-36.0) g/dl RDW (11.0-16.0) % Plt Count (160-400) X10*3/uL MPV (9.4-12.4) fL Immature Gran % (Auto) (0.0-0.4) % Neut % (Auto) (45-73) % Lymph % (Auto) (20-40) % Guthrie % (Auto) (2-11) % Eos % (Auto) (0-4) % Baso % (Auto) (0-2) % Lymph # (Auto) (1.2-4.9) X10*3/uL Guthrie # (Auto) (0.1-1.2) X10*3/uL Eos # (Auto) (0.0-0.4) X10*3/uL Baso # (Auto) (0.0-0.2) X10*3/uL Abs Immat Gran (auto) (0.00-0.03) X10*3/uL Absolute Neuts (auto) (2.0-8.3) x10*3/uL Absolute Nucleated RBC (0.0-0.012) X10*3/uL Nucleated RBC % (auto) (0.0-0.2) /100WBC Sodium (135-145) mmol/L Potassium (3.3-5.1) mmol/L Chloride (96-108) mmol/L Carbon Dioxide (22-29) mmol/L Anion Gap (12-20) BUN (9-16) mg/dL Creatinine (0.5-1.4) mg/dL Estim Creat Clear Calc Estimated GFR Random Glucose (60-115) mg/dL Calcium (8.4-10.2) mg/dL Magnesium (1.6-2.6) mg/dL Total Bilirubin (0.0-1.0) mg/dL AST (5-37) U/L ALT (0-40) U/L Alkaline Phosphatase (39-117) U/L Troponin I High Sens 3.7 (<3.5-35.0) ng/L Total Protein (6.5-8.0) g/dL Albumin (3.5-5.0) g/dL COVID-19 ([facility]) (Negative) COVID-19 Clin Com Discharge Plan Discharge Clinical Impression: Viral gastroenteritis Patient Disposition: Home, Self-Care Instructions: Acute Nausea and Vomiting (ED) Additional Instructions: Drink plenty of fluids Medicine for nausea as needed Follow-up with the PCP Prescriptions: No Action acetaminophen 325 mg Tablet 650 mg PO Q6H PRN (Reason: Pain) warfarin 5 mg tablet 7.5 mg PO DAILY@1800 sevelamer carbonate 800 mg tablet 2,400 mg PO TIDAC cholecalciferol (vitamin D3) 50 mcg (2,000 unit) capsule 1 cap PO DAILY cefazolin 1 gram recon soln 2 g IV MOWEFR Qty: 12 0RF Rx Instructions: to be given post dialysis cyclobenzaprine 10 mg tablet 10 mg PO Q8H Qty: 20 0RF oxycodone 5 mg tablet 5 mg PO Q6H PRN (Reason: Pain, Moderate) Qty: 20 0RF loperamide [Imodium A-D] 2 mg tablet 2 mg PO Q6H PRN (Reason: loose stool) Qty: 10 0RF
[2022-12-12] MEDS: Ondansetron ODT 4 MG TAB.RAPDIS TRANSLINGU (18:02)
[2022-12-12 18:05] VITALS: BP 125/65; PULSE 83; RESP 16; TEMP 37.1
[2022-12-12 18:09] VITALS: BP 125/65; PULSE 83
[2022-12-12 18:10] VITALS: BP 142/81; PULSE 85
[2022-12-12 18:11] VITALS: BP 138/73; PULSE 88
[2022-12-12 18:18] LABS: Phosphorus 2.7 mg/dL (2.7-4.5)
[2022-12-12 18:55] VITALS: BP 123/72; PULSE 88; RESP 16; TEMP 36.8; O2SAT 98
== END 2022-12-12 18:55 | disposition home or self-care (01) ==
PROVIDERS: Nurse Practitioner Family; Emergency Provider Internal Medicine; PCP Internal Medicine
DX: K52.9 Noninfective gastroenteritis and colitis, unspecified (principal); G89.18 Other acute postprocedural pain; R42 Dizziness and giddiness; Z20.828 Contact with and (suspected) exposure to other viral communicable diseases; Z20.822 Contact with and (suspected) exposure to COVID-19; Z79.899 Other long term (current) drug therapy
CPT/HCPCS: 36415; 80053; 83735; 84100; 84484; 85025; 87635; 93005; 99284

== ENCOUNTER 2023-02-25 13:00 | Outpatient (RCR) | payer MEDICAID, OTHER, SELFPAY | END 2023-03-14 08:36 | disposition home or self-care (01) | LOC: HO.PT 13:00 | PROVIDERS: PCP Internal Medicine; Visit Provider Internal Medicine | DX: M54.50 Low back pain, unspecified (principal); M25.561 Pain in right knee; M25.562 Pain in left knee; G89.29 Other chronic pain | CPT/HCPCS: 97110; 97162 ==

== ENCOUNTER 2023-03-21 16:09 | Emergency (ER) | payer OTHER, SELFPAY ==
--- NOTE | 2023-03-21 16:39 | ED_ITS ---
HPI - General Adult General Chief complaint: Extremity Injury, Lower Stated complaint: L foot pain, no injury Time Seen by Provider: 03/21/23 16:37 Source: patient Mode of arrival: ambulatory Limitations: no limitations History of Present Illness HPI narrative: Patient is a 27 year old assigned male at with a history of CKD requiring dialysis presenting to the emergency department today with bilateral ankle / foot pain, left worse than right. Patient states that over the last few weeks he has had bilateral foot and ankle pain with his left ankle and foot hurting worse than his right. 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 Patient denies any dizziness, lightheadedness, abdominal pain, nausea, vomiting, fever, chills, blurry vision, double vision, loss of vision, chest pain, difficulty breathing, shortness of breath, back pain, night sweats, pain with urination, increased urinary frequency, increased urinary urgency, blood in his urine or stool, syncope or a near syncopal episode, recent trauma or falls, bowel incontinence, bladder incontinence, bowel retention, bladder retention, or any other complaints at this time. Onset (ago): week(s) Location: left, right and lower extremity Severity: mild Severity scale (1-10): 4 Quality: aching and dull Pain Consistency: intermittent Relieving factors: none Exacerbating factors: none Associated symptoms: denies other symptoms Treatments prior to arrival: other (tylenol and GABY wrap) Related Data Home Medications Medication Instructions Recorded Confirmed acetaminophen 325 mg tablet 650 mg PO Q6H PRN Pain 04/23/21 04/23/21 cholecalciferol (vitamin D3) 50 1 cap PO DAILY 04/23/21 04/23/21 mcg (2,000 unit) capsule sevelamer carbonate 800 mg tablet 2,400 mg PO TIDAC 04/23/21 04/23/21 warfarin 5 mg tablet 7.5 mg PO DAILY@1800 04/23/21 04/23/21 Previous Rx's Medication Instructions Recorded cefazolin 1 gram solution for 2 g IV MOWEFR #12 ea 04/27/21 injection cyclobenzaprine 10 mg tablet 10 mg PO Q8H #20 tabs 08/19/21 loperamide 2 mg tablet (Imodium 2 mg PO Q6H PRN loose stool #10 08/19/21 A-D) tabs oxycodone 5 mg tablet 5 mg PO Q6H PRN Pain, Moderate #20 08/19/21 tabs Allergies Allergy/AdvReac Type Severity Reaction Status Date / Time No Known Allergies Allergy Verified 12/19/21 21:23 Review of Systems Constitutional: Constitutional: Reports no additional constitutional complaints, Denies chills, Denies fever(s) and Denies night sweats Eyes: Eyes: Reports no additional eye complaints, Denies blurry vision, Denies change in vision, Denies diplopia, Denies eye discharge, Denies loss of vision and Denies eye pain ENT: Denies dizziness Cardiovascular: Cardiovascular: Reports no additional cardiovascular complaints, Denies chest pain, Denies lightheadedness, Denies Loss of Consciousness and Denies dyspnea Respiratory: Respiratory: Reports no additional respiratory complaints and Denies dyspnea Gastrointestinal: Gastrointestinal: Reports no additional gastrointestinal complaints, Denies abdominal pain, Denies melena, Denies hematochezia, Denies change in bowel habits and Denies change in stool character Genitourinary: Genitourinary: Reports no additional male genitourinary complaints, Denies hematuria, Denies oliguria, Denies difficulty urinating, Denies dysuria, Denies urinary frequency, Denies urinary hesitancy, Denies urinary incontinence and Denies urinary urgency Musculoskeletal: Musculoskeletal: Reports no additional musculoskeletal complaints, Denies numbness and Denies tingling Comments: bilateral ankle and foot pain Neurologic: Denies dizziness, Denies loss of vision, Denies numbness and Denies tingling Psychiatric: Psychiatric: Reports no additional psychiatric complaints Endocrine: Endocrine: Reports no additional endocrine complaints Hematologic/Lymphatic: Hematologic/Lymphatic: Reports no additional hematologic/lymphatic complaints Allergic/Immunologic: Allergic/Immunologic: Reports no additional allergic/immunologic complaints [facility] Past Medical History Attestation statement: The following information was validated with the patient. Source: old records reviewed and nursing notes reviewed Medical History 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 AV fistula Hypertension Anemia in chronic kidney disease ESRD (end stage renal disease) Renal failure, acute on chronic Hypertension Chronic kidney disease Social History Social History Household Members: Family Household Members Other:: mother Housing: House Do you presently have visiting nurse or other home services: Yes (rn visiting) Alcohol intake: never Patient Tobacco Use Status: Tobacco use Unknown Substance Use Type: Marijuana Advance Directives: No Advance Directives Information Provided: No Advance Directives Date on File: 07/23/20 service: No Current occupational status: unemployed Physical Exam ED Vital Signs: Vital Signs - 24 hr 03/21/23 16:43 Temperature 98.2 F Pulse Rate 80 Respiratory Rate 18 Blood Pressure 159/73 H Pulse Oximetry 100 Oxygen Delivery Method Room Air BMI result Body Mass Index 25.3 Const General: cooperative, no acute distress, alert and awake Nutritional Appearance: well nourished Orientation/consciousness: patient oriented x3 Limitations: no limitations HENMT Head: Yes normal to inspection and Yes atraumatic Ears: hearing grossly normal bilaterally and external ears normal General nose exam: Normal external nose present, no nasal discharge noted and no epistaxis Face and sinus: Yes normal facial exam, No abrasion and No laceration Mouth: Normal oral and palatal mucosa present, no drooling and no muffled voice Eyes General: appearance normal, both eyes and all related structures Periorbital: periorbital findings normal Eyelids: Yes eyelids normal Conjunctivae: conjunctivae normal Pupils: Equal, round and reactive pupils present EOM: EOMs intact bilaterally Neck Neck: Yes normal visual inspection, Yes full ROM and Yes no lymphadenopathy Chest Chest palpation & inspection: normal inspection of the chest Resp Effort & Inspection: normal respiratory effort and able to speak in complete sentences GI Inspection: Yes normal to inspection Neuro General: patient oriented x3 and moves all extremities Cranial nerves: Yes Equal, round and reactive pupils present Cognition (Neuro): normal cognition Motor exam (neuro): 5/5 motor strength present throughout Sensory Exam: Normal double simultaneous stimulation for sensation Coordination: [id number] test normal Extrem General: Yes normal to inspection, Yes full ROM and Yes capillary refill normal Psych Appearance: grossly normal Mental Status: mental status grossly normal Affect: normal affect Attitude: cooperative Thought process: Normal thought process present Thought content: Normal thought content present Insight: Good insight present (Psych) Medical Decision Making Medical Decision Making MDM Narrative: Patient is a 27 year old assigned male at with a history of CKD requiring dialysis presenting to the emergency department today with bilateral foot and ankle pain. Patient's physical exam was unremarkable. I explained my physical exam findings to the patient. I answered all questions asked by the patient. I explained to the patietn that given his CKD requiring dialysis, I cannot prescribe or administer NSAIDs. Additionally, I explained to the patient that systemic steroids would not be advised given his medical history. I stressed the importance of the patient taking his medication as prescribed. I stressed the importance of the patient following up with his primary care provider and with the orthopedic office. I stressed the importance of the patient returning to the emergency department immediately if his symptoms were to worsen or if he were to develop any dizziness, shortness of breath, difficulty breathing, chest pain, blurry vision, loss of vision, nausea, vomiting, abdominal pain, fever, chills, back pain, or any other complaints. Patient verbalized agreement and understanding with this treatment plan and discharge. Differential Diagnosis Differential Diagnoses: The differential diagnosis associated with the presentation includes Bilateral ankle pain Arthralgias Tarsal tunnel Discharge Plan Discharge Clinical Impression: Arthralgia Patient Disposition: Home, Self-Care Instructions: Arthralgia (ED) Additional Instructions: Unfortunately, given your history of chronic kidney disease currently being dialyzed, we cannot give you NSAIDs. Continue compression and Tylenol for pain. Follow up with your primary care provider and an orthopedic provider. Return to the emergency department immediately if your symptoms worsen or if you develop any dizziness, shortness of breath, difficulty breathing, chest pain, blurry vision, loss of vision, nausea, vomiting, abdominal pain, fever, chills, back pain, or any other complaints. Prescriptions: No Action acetaminophen 325 mg Tablet 650 mg PO Q6H PRN (Reason: Pain) warfarin 5 mg tablet 7.5 mg PO DAILY@1800 sevelamer carbonate 800 mg tablet 2,400 mg PO TIDAC cholecalciferol (vitamin D3) 50 mcg (2,000 unit) capsule 1 cap PO DAILY cefazolin 1 gram recon soln 2 g IV MOWEFR Qty: 12 0RF Rx Instructions: to be given post dialysis cyclobenzaprine 10 mg tablet 10 mg PO Q8H Qty: 20 0RF oxycodone 5 mg tablet 5 mg PO Q6H PRN (Reason: Pain, Moderate) Qty: 20 0RF loperamide [Imodium A-D] 2 mg tablet 2 mg PO Q6H PRN (Reason: loose stool) Qty: 10 0RF Referrals: [facility] [Provider Group] (Call to establish and follow up with an orthopedic provider.) Senia German MD [Primary Care Provider] - Interventions: ED Discharge Assessment Last Done: 03/21/23 16:52 Discharge Date/Time: 03/21/23 16:54 Print Language: Hungarian
[2023-03-21 16:43] VITALS: BP 159/73; PULSE 80; RESP 18; TEMP 36.8; O2SAT 100; BMI 25.3
== END 2023-03-21 16:54 | disposition home or self-care (01) ==
LOC: HO.ED 16:51
PROVIDERS: Emergency Provider Emergency Medicine; PCP Internal Medicine
DX: M25.572 Pain in left ankle and joints of left foot (principal); Z79.899 Other long term (current) drug therapy
CPT/HCPCS: 99283

== ENCOUNTER 2023-03-30 08:01 | Outpatient (AMB) | payer OTHER, SELFPAY ==
--- NOTE | 2023-03-30 08:09 | MHC.OFFVIS ---
Intake Vital Signs 03/30/23 08:11 Height 5 ft 8 in Weight 166 lb 7.184 oz BMI 25.3 BP 130/70 Blood Pressure Location Rt brachial Position Sitting Pulse 80 Intake Visit Reasons: diarrhea Intake Note: Patient new consult for diarrhea. Patient cc: diarrhea on and off, vomiting on and off. denies any other GI issues. Pheresis Nurse Required: No Accompanied by: Self / Same As Patient Allergies No Known Allergies Allergy (Verified 03/30/23 08:08) Medication List - Last Reconciled 03/30/23 by Mirella Marks PA-C acetaminophen 650 mg PO Q6H PRN cholecalciferol (vitamin D3) 1 cap PO DAILY loperamide (Imodium A-D) 2 mg PO Q6H PRN sevelamer carbonate 2,400 mg PO TIDAC warfarin 7.5 mg PO DAILY@1800 HPI HPI Comments History of Present Illness Details 27-year-old male ESRD on dialysis referred with intermittent nausea, vomiting and diarrhea diarrhea at least 2-3 times a wk-a he has take Imodium has given him some relief. Several months ago diarrhea was much worse infrequent nausea and vomiting- 1-2 times a month- nothing specific brings it on Appetite is ok- depends on dialysis He soon will be listed for transplant-just awaiting cardiac report He has not had EGD colonoscopy, he said that was not requested Father colon cancer at 55- He was seen in a ED for back pain has improved No abdominal pain, hematemesis, hematochezia fever or chills PFSH Medical History (Updated 03/30/23 @ 10:43 by Mirella Marks PA-C) 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 AV fistula Hypertension Anemia in chronic kidney disease ESRD (end stage renal disease) Renal failure, acute on chronic Hypertension Chronic kidney disease Social History Household Members: Family Household Members Other:: mother Housing: House Do you presently have visiting nurse or other home services: Yes (rn or lvn) Alcohol intake: never Patient Tobacco Use Status: Tobacco use Unknown Substance Use Type: Marijuana Advance Directives Date on File: 07/23/20 service: No Current occupational status: unemployed Review of Systems Const All systems reviewed & are unremarkable except as noted in HPI and below Card Denies chest pain and Denies dyspnea Resp Denies dyspnea GI Denies abdominal pain, Denies hematochezia, Denies heartburn, Reports diarrhea (2-3 wk x 1 yr), Reports nausea and Reports vomiting Details: dialysis 2-3 x wks Physical Exam Vital Signs: Last Vital Signs Pulse 80 03/30/23 08:11 BP 130/70 03/30/23 08:11 BMI result Body Mass Index 25.3 Const General: cooperative, comfortable and well groomed Orientation/consciousness: oriented to person Eyes Sclerae: sclerae normal Resp Effort & Inspection: normal respiratory effort and able to speak in complete sentences Auscultation: clear to auscultation bilaterally, no crackles, no rales and no rhonchi Cardio Rate: regular rate Rhythm: regular rhythm Heart sounds: S1 normal heart sound present and S2 normal heart sound present GI Palpation (GI): Soft to palpation and nontender Auscultation: normal bowel sounds Neuro General: oriented to person Extrem General: Yes full ROM Psych Mental Status: mental status grossly normal Speech and movement: Normal speech and movement present Affect: normal affect Attitude: cooperative Thought process: Normal thought process present Thought content: Normal thought content present Results Reviewed Results Reviewed: No recent labs for review Assessment & Plan Assessment & Plan (1) ESRD (end stage renal disease): Comment: Access- Permcath by IR this admission Getting HD now; Seen on HD; [facility]- Patient aware ( [employer]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 York RN- Tel No: [phone]) Could be discharged after HD Renal Diet ( Low sodium, Low Phos) ( Has good urine output and normal serum K- So restriction for it for now) Case Management need to touch base with Dipika York( details mentioned above) before D/C Code(s): N18.6 - End stage renal disease Plan: Follows at [facility] - (2) Nausea vomiting and diarrhea: Comment: Rare nausea vomiting, however diarrhea persistent greater than 6 months Baseline labs, stool studies Code(s): R11.2 - Nausea with vomiting, unspecified; R19.7 - Diarrhea, unspecified Plan: Labs Stool studies (3) Family history of colon cancer in father: Comment: age 55 Code(s): Z80.0 - Family history of malignant neoplasm of digestive organs Plan: Recommend all other first-degree relatives begin screening at age 45 (4) Elevated alkaline phosphatase level: Comment: May be associated CKD Code(s): R74.8 - Abnormal levels of other serum enzymes Plan: Get GGT Orders: Orders Complete Blood Count Auto Diff Today K52.9 - Noninfective gastroenteritis and colitis, unspecified GI Panel Today R19.7 - Diarrhea, unspecified Thyroid Stimulating Hormone Today R19.8 - Other specified symptoms and signs involving the digestive system and abdomen Comprehensive Met. Panel Today N18.6 - End stage renal disease, R11.2 - Nausea with vomiting, unspecified, R19.7 - Diarrhea, unspecified CDiff Gene PCR Today R19.7 - Diarrhea, unspecified Transglutaminase IgA Today R19.7 - Diarrhea, unspecified Endomysial IgA rflx Titer Today N18.6 - End stage renal disease, R11.2 - Nausea with vomiting, unspecified, R19.7 - Diarrhea, unspecified Gamma Glutamyl Transpeptidase Today R74.8 - Abnormal levels of other serum enzymes Medications: New loperamide (Imodium A-D) 2 mg PO Q6H PRN 30 tabs 1RF loose stool Patient Instructions: Very pleasant 27-year-old male ESRD referred with chronic diarrhea. Will get baseline labs, stool studies. He may continue Imodium Will see him back consult with MD sumner EGD colonoscopy Coding Level of Care Code New Pt Level 4 (57004) Diagnoses ESRD (end stage renal disease) N18.6 Nausea vomiting and diarrhea R11.2; R19.7 Family history of colon cancer in father Z80.0 Elevated alkaline phosphatase level R74.8 Time Spent (min) 35
[2023-03-30 08:11] VITALS: BP 130/70; PULSE 80; BMI 25.3
== END 2023-03-30 08:50 | disposition home or self-care (01) ==
PROVIDERS: PCP Internal Medicine; Visit Provider Physician Assistant
DX: N18.6 End stage renal disease (principal); R11.2 Nausea with vomiting, unspecified; R19.7 Diarrhea, unspecified; Z80.0 Family history of malignant neoplasm of digestive organs; R74.8 Abnormal levels of other serum enzymes
CPT/HCPCS: 99204

== ENCOUNTER → 2023-03-30 08:01 | Outpatient (BNVA) | payer OTHER, SELFPAY | PROVIDERS: PCP Internal Medicine; Visit Provider Physician Assistant ==

== ENCOUNTER 2023-04-27 11:44 | Outpatient (AMB) | payer OTHER, SELFPAY ==
--- NOTE | 2023-04-27 12:04 | A.OFFVIS_ITS ---
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 States he is having pain in his arch/plantar aspect of foot for the last 2 months. 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 He has purchased insoles which provide some relief. Also states he has numbness and tingling in b/l feet due to low calcium. Also is doing dialysis 3x a week. States he was seen with a electrical tryout person who stated he is flat footed. States his pain has increase since. Allergies No Known Allergies Allergy (Verified 04/27/23 12:11) Medication List - Last Reconciled 04/27/23 by Shirin Contreras MD acetaminophen 650 mg PO Q6H PRN cholecalciferol (vitamin D3) 1 cap PO DAILY loperamide (Imodium A-D) 2 mg PO Q6H PRN loperamide (Imodium A-D) 2 mg PO Q6H PRN sevelamer carbonate 2,400 mg PO TIDAC warfarin 7.5 mg PO DAILY@1800 HPI HPI Comments History of Present Illness Details History of CKD requiring dialysis. He presented to the emergency department 11/12/22 with bilateral ankle / foot pain, left worse than right. He says started limping for at least a year. No injuries or falls. Did not have pain at that time. Thought maybe knee is weak, did PT for that. Noted pain 2 months ago. Usually after working as a DJ, standing prolonged. Pain anterior and medial. Numbness both feet, hands and face. They thought due to calcium level, history of parathyroid removal 4-5 months ago. No DM. 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 Chronic back pain, midline, non radicular. 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 fistula Hypertension Anemia in chronic kidney disease ESRD (end stage renal disease) Renal failure, acute on chronic Hypertension Chronic kidney disease Social History (Updated 04/27/23 @ 12:11 by Rosa Jensen [facility]) Household Members: Family Household Members Other:: mother Housing: House Do you presently have visiting nurse or other home services: Yes (rn outpatient surgery) Alcohol intake: never Patient Tobacco Use Status: Tobacco use Unknown Substance Use Type: Marijuana Advance Directives Date on File: 07/23/20 service: No Current occupational status: employed 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 MSK: No specific abnormalities found on inspection of the spine and all extremities. Lumbar ROM was full. Tender left plantar fascia. Achillis tendon nontender. No ankle instability. No ligamentous laxity or crepitant. Inversion left not full range. Left EHL extension 4-/5 only. Left dorsiflexion 4+/5 Neurological: Strength exam as above, question left footdrop. No other hyperflexion or spasticity seen, no other weakness or atrophy seen. Sorensen?s negative bilaterally. Babinski was down going bilaterally. Clonus was negative. Gait is non-antalgic without loss of balance. Patient can stand on toes and heels with assistance. Results Reviewed Results Reviewed: I independently reviewed the results of the following: Lumbar x-ray 11/12/2022 unremarkable. I reviewed records from the following: ER notes Assessment & Plan Assessment & Plan (1) Foot drop, left: Code(s): M21.372 - Foot drop, left foot (2) Neuropathy: Code(s): G62.9 - Polyneuropathy, unspecified (3) Plantar fasciitis of left foot: Code(s): M72.2 - Plantar fascial fibromatosis Plan Presented with left foot pain but per history and exam, I am more concerned about left footdrop. History of CKD and parathyroid can cause neuropathy. Rule out peroneal neuropathy as well. We will schedule him for EMG. As for the pain, it is focal on left plantar fascia. Will provide plantar fascia socks to be worn during the day especially when he is working. Assessment and plan discussed with patient, and patient was agreeable. All questions were answered thoroughly. Shirin Contreras MD, BISHNU Board Certified, [place] [employer] and [employer] (ABPMR) Board Certified, [place] [employer] Electrodiagnostic [employer] (ABEM) Coding Level of Care Code New Pt Level 4 (51639) Diagnoses Foot drop, left M21.372 Neuropathy G62.9 Plantar fasciitis of left foot M72.2
[2023-04-27 12:06] VITALS: BMI 25.2
== END 2023-04-27 12:28 | disposition home or self-care (01) ==
PROVIDERS: PCP Internal Medicine; Visit Provider Physical Medicine & Rehabilitation
DX: M21.372 Foot drop, left foot (principal); G62.9 Polyneuropathy, unspecified; M72.2 Plantar fascial fibromatosis
CPT/HCPCS: 99204

== ENCOUNTER → 2023-04-27 11:44 | Outpatient (BNVA) | payer OTHER, SELFPAY | PROVIDERS: PCP Internal Medicine; Visit Provider Physical Medicine & Rehabilitation | DX: M21.372 Foot drop, left foot (principal); M72.2 Plantar fascial fibromatosis; G62.9 Polyneuropathy, unspecified | CPT/HCPCS: 99202 ==

== ENCOUNTER 2023-10-11 14:45 | Emergency (ER) | payer OTHER, SELFPAY ==
--- NOTE | ~2023-10-11 | XR_ITS ---
EXAMINATION: XR CHEST CLINICAL INFORMATION: Chest pain COMPARISON: 04/15/2022 TECHNIQUE: PA and lateral views of the chest were obtained. FINDINGS: Borderline enlarged cardiac silhouette, unchanged. No consolidation, pneumothorax, or pleural effusion. Pulmonary vasculature is unremarkable. No pneumothorax or pleural effusion. No acute osseous findings. Chronic bilateral distal clavicular osteolysis. XR/XR chest 2V IMPRESSION: 1. No acute pulmonary findings. 2. Borderline cardiomegaly, unchanged.
[2023-10-11 14:58] VITALS: BP 173/107; PULSE 86; RESP 18; TEMP 37.1; O2SAT 96; BMI 25.1
--- NOTE | 2023-10-11 14:59 | ED.GENADULT ---
HPI - General Adult General Chief complaint: General Medical Stated complaint: HBP/R side CP during dialysis Related Data Home Medications ?Medication ?Instructions ?Recorded ?Confirmed acetaminophen 325 mg tablet 650 mg PO Q6H PRN Pain 04/23/21 04/27/23 cholecalciferol (vitamin D3) 50 1 cap PO DAILY 04/23/21 04/27/23 mcg (2,000 unit) capsule sevelamer carbonate 800 mg tablet 2,400 mg PO TIDAC 04/23/21 04/27/23 warfarin 5 mg tablet 7.5 mg PO DAILY@1800 04/23/21 04/27/23 Previous Rx's ?Medication ?Instructions ?Recorded loperamide 2 mg tablet (Imodium 2 mg PO Q6H PRN loose stool #10 08/19/21 A-D) tabs loperamide 2 mg tablet (Imodium 2 mg PO Q6H PRN loose stool #30 03/30/23 A-D) tabs Allergies Allergy/AdvReac Type Severity Reaction Status Date / Time No Known Allergies Allergy Verified 10/11/23 15:00 [facility] Past Medical History Medical History (Updated 10/11/23 @ 21:32 by Cecille Pascual) 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 AV fistula Hypertension Anemia in chronic kidney disease ESRD (end stage renal disease) Renal failure, acute on chronic Hypertension Chronic kidney disease Social History Social History (Updated 04/27/23 @ 12:11 by Rosa Jensen [facility]) Household Members: Family Household Members Other:: mother Housing: House Do you presently have visiting nurse or other home services: Yes (pharmacy intern) Alcohol intake: never Comment: Patient sleeping Patient Tobacco Use Status: Tobacco use Unknown Substance Use Type: Marijuana Advance Directives: Yes Advance Directives on File: Yes Advance Directives Date on File: 07/23/20 service: No Current occupational status: employed 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 This is a 27-zdss-lch-male, with a hx of ESRD, with complaints of headache and chest pain as well high blood pressure since today. He states that he forgot to take his blood pressure medication yesterday but took it when he arrived home. Patient went to dialysis and has had right-sided chest pain after he got home from dialysis. He is stating pounding headache, no dizziness or blurred vision. He is neurologically intact. Plan: Labs, EKG, further ER evaluation needed. Reevaluation(s) Reevaluation #1: pt left without completing treatment Medical Decision Making Lab Data 10/11/23 15:41 10/11/23 15:41 Labs: Lab Results 10/11/23 10/11/23 Range/Units 15:40 15:41 WBC 6.0 (4.8-10.8) X10*3/uL RBC 3.47 L (4.60-5.80) X10*6/uL Hgb 10.8 L (14.0-18.0) g/dl Hct 32.0 L (42.0-52.0) % MCV 92.2 (80.0-98.0) fL MCH 31.1 (27.0-33.0) pg MCHC 33.8 (31.0-36.0) g/dl RDW 13.5 (11.0-16.0) % Plt Count 142 L (160-400) X10*3/uL MPV 10.1 (9.4-12.4) fL Immature Gran % (Auto) 0.5 H (0.0-0.4) % Neut % (Auto) 70.3 (45-73) % Lymph % (Auto) 19.0 L (20-40) % [place] % (Auto) 8.2 (2-11) % Eos % (Auto) 1.7 (0-4) % Baso % (Auto) 0.3 (0-2) % Lymph # (Auto) 1.1 L (1.2-4.9) X10*3/uL [place] # (Auto) 0.5 (0.1-1.2) X10*3/uL Eos # (Auto) 0.1 (0.0-0.4) X10*3/uL Baso # (Auto) 0.0 (0.0-0.2) X10*3/uL Abs Immat Gran (auto) 0.03 (0.00-0.03) X10*3/uL Absolute Neuts (auto) 4.2 (2.0-8.3) x10*3/uL Absolute Nucleated RBC 0.000 (0.0-0.012) X10*3/uL Nucleated RBC % (auto) 0.0 (0.0-0.2) /100WBC PT 12.9 (11.1-13.3) SEC INR 1.1 (0.9-1.1) APTT 29.2 (26.0-36.8) SEC Sodium 146 H (135-145) mmol/L Potassium 4.1 (3.3-5.1) mmol/L Chloride 96 (96-108) mmol/L Carbon Dioxide 35 H (22-29) mmol/L Anion Gap 19 (12-20) BUN 14 (9-16) mg/dL Creatinine 7.30 H* (0.5-1.4) mg/dL Estim Creat Clear Calc 14.7 Estimated GFR 9 Random Glucose 80 (60-115) mg/dL Calcium 9.3 D (8.4-10.2) mg/dL Total Bilirubin 0.6 (0.0-1.0) mg/dL Direct Bilirubin 0.1 (0.0-0.5) mg/dL AST 5 (5-37) U/L ALT 10 (0-40) U/L Alkaline Phosphatase 36 L (39-117) U/L Troponin I High Sens 8.0 D (<3.5-35.0) ng/L Total Protein 7.4 (6.5-8.0) g/dL Albumin 4.3 (3.5-5.0) g/dL Discharge Plan Discharge Clinical Impression: Nausea, Vomiting, and Diarrhea Patient Disposition: Left W/O Completing Treatment Prescriptions: No Action acetaminophen 325 mg Tablet 650 mg PO Q6H PRN (Reason: Pain) warfarin 5 mg tablet 7.5 mg PO DAILY@1800 sevelamer carbonate 800 mg tablet 2,400 mg PO TIDAC cholecalciferol (vitamin D3) 50 mcg (2,000 unit) capsule 1 cap PO DAILY loperamide [Imodium A-D] 2 mg tablet 2 mg PO Q6H PRN (Reason: loose stool) Qty: 10 0RF loperamide [Imodium A-D] 2 mg tablet 2 mg PO Q6H PRN (Reason: loose stool) Qty: 30 1RF Discharge Date/Time: 10/11/23 23:03
--- NOTE | 2023-10-11 15:00 | ECG_ITS ---
Test Reason : CP Blood Pressure : / mmHG Vent. Rate : 086 BPM Atrial Rate : 086 BPM P-R Int : 132 ms QRS Dur : 078 ms QT Int : 404 ms P-R-T Axes : 052 005 033 degrees QTc Int : 483 ms Normal sinus rhythm Minimal voltage criteria for LVH, may be normal variant ( R in aVL ) Prolonged QT Abnormal ECG When compared with ECG of 12-DEC-2022 16:15, No significant change was found Referred By: Gracy Pelayo Electronically Signed By:BERNADINE MONTOYA MD
[2023-10-11 15:44] LABS: MANUAL DIFF FLAG NO
[2023-10-11 15:48] LABS: Basophils Percent Auto 0.3 % (0-2); Eosinophils Absolute Auto 0.1 X10*3/uL (0.0-0.4); Eosinophils Percent Auto 1.7 % (0-4); Hemoglobin 10.8 g/dl (14.0-18.0); Imm Gran Abs Auto 0.03 X10*3/uL (0.00-0.03); Imm Gran Pct Auto 0.5 % (0.0-0.4); Lymphocytes Absolute Auto 1.1 X10*3/uL (1.2-4.9); Mean Corpuscular HGB Conc 33.8 g/dl (31.0-36.0); Mean Corpuscular Hemoglobin 31.1 pg (27.0-33.0); Mean Corpuscular Volume 92.2 fL (80.0-98.0); Mean Platelet Volume 10.1 fL (9.4-12.4); Monocytes Absolute Auto 0.5 X10*3/uL (0.1-1.2); Monocytes Percent Auto 8.2 % (2-11); Neutrophils Absolute Auto 4.2 x10*3/uL (2.0-8.3); Neutrophils Percent Auto 70.3 % (45-73); Platelet Count 142 X10*3/uL (160-400); Red Blood Count 3.47 X10*6/uL (4.60-5.80); Red Cell Distribution Width 13.5 % (11.0-16.0)
[2023-10-11 15:56] LABS: INTERNATIONAL NORM RATIO 1.1 (0.9-1.1); Prothrombin Time 12.9 SEC (11.1-13.3)
[2023-10-11 15:58] LABS: Partial Thromboplastin Time 29.2 SEC (26.0-36.8)
[2023-10-11 16:07] LABS: Alanine Aminotransferase 10 U/L (0-40); Albumin Level 4.3 g/dL (3.5-5.0); Alkaline Phosphatase 36 U/L (39-117); Anion Gap 19 (12-20); Aspartate Amino Transferase 5 U/L (5-37); Bilirubin Direct 0.1 mg/dL (0.0-0.5); Bilirubin Total 0.6 mg/dL (0.0-1.0); Blood Urea Nitrogen 14 mg/dL (9-16); Calcium 9.3 mg/dL (8.4-10.2); Carbon Dioxide 35 mmol/L (22-29); Chloride 96 mmol/L (96-108); Creatinine Clr Calc Pharmacy 14.7; Estimated Glomerular Filt Rate 9; Glucose Random 80 mg/dL (60-115); Potassium 4.1 mmol/L (3.3-5.1); Sodium 146 mmol/L (135-145); Total Protein 7.4 g/dL (6.5-8.0)
== END 2023-10-11 23:03 | disposition left against medical advice (07) ==
LOC: HO.ED 21:41
PROVIDERS: Physician Assistant Medical; Emergency Provider Emergency Medicine; PCP Internal Medicine
DX: R11.2 Nausea with vomiting, unspecified (principal); R19.7 Diarrhea, unspecified; R07.9 Chest pain, unspecified; Z53.21 Procedure and treatment not carried out due to patient leaving prior to being seen by health care provider
CPT/HCPCS: 36415; 71046; 80048; 80076; 84484; 85025; 85610; 85730; 93005; 99283

== ENCOUNTER → 2023-10-11 15:00 | Outpatient (BNV) | payer OTHER, SELFPAY | PROVIDERS: PCP Internal Medicine; Visit Provider Internal Medicine Cardiovascular Disease | DX: R07.9 Chest pain, unspecified (principal); I45.81 Long QT syndrome | CPT/HCPCS: 93010 ==

== ENCOUNTER 2023-10-14 13:14 | Inpatient (IN) | payer OTHER, SELFPAY ==
[2023-10-14] VITALS (9 sets, daily range): BP systolic 165–195; BP diastolic 102–128; PULSE 88–97; RESP 14–18; TEMP 36.6–36.8; O2SAT 88–100; BMI 25.6
--- NOTE | ~2023-10-14 | XR_ITS ---
EXAMINATION: XR CHEST CLINICAL INFORMATION: Chest pain COMPARISON: Chest x-ray October 11, 2023 TECHNIQUE: 2 views of the chest were obtained. FINDINGS: No significant abnormality is noted involving the heart, lungs, mediastinum, bony thorax or soft tissues. XR/XR chest 2V IMPRESSION: Unremarkable examination.
--- NOTE | ~2023-10-14 | XR_ITS ---
EXAMINATION: XR CHEST CLINICAL INFORMATION: Fluid overload COMPARISON: CT angiogram chest from 10/14/2023, chest radiograph from 10/14/2023 TECHNIQUE: Frontal view of the chest was obtained. FINDINGS: Bilateral low lung volumes. Prominence of pulmonary vasculature. Bibasilar atelectasis. No pneumothorax. Trachea is midline. Cardiac mediastinal silhouette is not enlarged. No large pleural effusion. Osseous structures are intact. Soft tissues are unremarkable. XR/XR chest 1V IMPRESSION: 1. Bilateral low lung volumes. 2. Prominence of pulmonary vasculature. 3. Bibasilar atelectasis.
--- NOTE | ~2023-10-14 | CT_ITS ---
EXAMINATION: CT ANGIOGRAM OF THE CHEST WITH AND WITHOUT CONTRAST (CT PULMONARY ANGIOGRAM FOR PE) CLINICAL INFORMATION: Reason for Exam Tachypnea, hypoxia, on dialysis COMPARISON: Previous chest x-ray from earlier the same day TECHNIQUE: Prior to contrast administration, noncontrast localization images were obtained. Subsequently, multidetector volumetric imaging was performed from the thoracic inlet to below the diaphragms following the administration of 65 mL Omnipaque 350 intravenous contrast. No contrast reaction reported Sagittal, coronal, and MIP oblique sagittal reformatted images were obtained on the CT workstation, uploaded to PACS, and reviewed. This CT examination was performed using dose optimization techniques as appropriate, variously including the following: *Automated exposure control *Adjustment of mA and/or kV according to patient size (this includes techniques or standardized protocols for targeted exams where dose is matched to indication/reason for exam; i.e. extremities or head) *Use of iterative reconstruction technique Total exam dose-length product 344 mGy-cm FINDINGS: QUALITY OF STUDY/CONTRAST BOLUS: Satisfactory. PULMONARY ARTERIES: No pulmonary emboli. THORACIC AORTA: No aneurysm. LUNG: Diffuse groundglass attenuation throughout the lungs and increased septal markings. This probably represents pulmonary edema. PLEURA: No pleural effusion or pneumothorax. MEDIASTINUM: Enlarged heart. No pericardial effusion. No hilar or mediastinal lymphadenopathy. No evidence of septal bowing or right heart strain. Surgical clips around the thyroid gland question previous parathyroidectomy. CORONARY ARTERY CALCIFICATION: None visualized on this study. CHEST WALL/AXILLA: No axillary or internal mammary lymphadenopathy. OSSEOUS STRUCTURES: No acute or suspicious osseous abnormality. Increased bone sclerosis questionable for renal osteodystrophy. UPPER ABDOMEN: Liver and spleen not completely imaged but appear prominent. No reflux of contrast into the hepatic veins to suggest elevated right heart pressures. CT/CT angio chest PE protocol IMPRESSION: No evidence of pulmonary embolism. Diffuse groundglass attenuation in the lungs mild increased septal markings. This probably represents pulmonary edema. Differential would include pneumonia. VTE:
--- NOTE | ~2023-10-14 | CT_ITS ---
EXAMINATION: CT HEAD WITHOUT CONTRAST CLINICAL INFORMATION: Headache COMPARISON: None. TECHNIQUE: Contiguous axial imaging was performed from the skull base to vertex without intravenous administration of contrast. Coronal and sagittal reformatted images are performed at the CT scanner. [This CT examination was performed using dose optimization techniques as appropriate, variously including the following: *Automated exposure control *Adjustment of mA and/or kV according to patient size (this includes techniques or standardized protocols for targeted exams where dose is matched to indication/reason for exam; i.e. extremities or head) *Use of iterative reconstruction technique] DLP: 663 mGy-cm. FINDINGS: There is no evidence of acute intracranial hemorrhage or territorial infarction. No abnormal mass-effect or midline shift is seen. Cai to white matter differentiation is well preserved. No extra-axial fluid collections are identified. The ventricles are normal in size. There is no abnormal attenuation within the brain parenchyma. There is no osseous abnormality. Lobular mucosal thickening in the left maxillary sinus. Mastoid air cells and middle ear cavities are normally aerated. CT/CT head/brain wo IV con IMPRESSION: No acute intracranial pathology.
--- NOTE | 2023-10-14 13:32 | ED_ITS ---
HPI - General Adult General Chief complaint: Dizziness Stated complaint: DIZZINESS WEAKNESS Time Seen by Provider: 10/14/23 13:49 History of Present Illness HPI narrative: 28 y/o M patient; PMH congential CKD requiring dialysis //Tue, hx parathyroidectomy; presents from home with report of lightheadedness, generalized headache, and dizziness since Tuesday (10/11/2023). Associated with chest tightness and shortness of breath. The patient states he initially presented to this emergency department on Tuesday but left prior to being seen due to the wait. He also reports he has recently noticed an elevated blood pressure despite being consistent with his lisinopril. The patient was seen by his PCP this morning who referred him to the Urgent Care and then the Urgent Care referred him to the Emergency Department for his high blood pressure. The patient denies any recent missed dialysis sessions. He has been on the kidney transplant list for the last 3 years. He states the chest tightness has been longer in duration - he recently wore a haltor monitor for 10 days and is scheduled to follow up with cardiology in October 2023. He denies: nausea/vomiting/diarrhea, abdominal pain, fever or chills. Related Data Home Medications ?Medication ?Instructions ?Recorded ?Confirmed acetaminophen 325 mg tablet 650 mg PO Q6H PRN Pain 04/23/21 04/27/23 cholecalciferol (vitamin D3) 50 1 cap PO DAILY 04/23/21 04/27/23 mcg (2,000 unit) capsule sevelamer carbonate 800 mg tablet 2,400 mg PO TIDAC 04/23/21 04/27/23 warfarin 5 mg tablet 7.5 mg PO DAILY@1800 04/23/21 04/27/23 Previous Rx's ?Medication ?Instructions ?Recorded loperamide 2 mg tablet (Imodium 2 mg PO Q6H PRN loose stool #10 08/19/21 A-D) tabs loperamide 2 mg tablet (Imodium 2 mg PO Q6H PRN loose stool #30 03/30/23 A-D) tabs Allergies Allergy/AdvReac Type Severity Reaction Status Date / Time No Known Allergies Allergy Verified 10/14/23 13:31 Review of Systems 2 Review of Systems: Yes all other systems are reviewed and are negative PMFSH Past Medical History Attestation statement: The following information was validated with the patient. 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 AV fistula Hypertension Anemia in chronic kidney disease ESRD (end stage renal disease) Renal failure, acute on chronic Hypertension Chronic kidney disease Social History Social History Household Members: Family Household Members Other:: mother Housing: House Do you presently have visiting nurse or other home services: Yes (flame burner) Alcohol intake: never Comment: Patient sleeping Patient Tobacco Use Status: Tobacco use Unknown Substance Use Type: Marijuana Advance Directives: Yes Advance Directives on File: Yes Advance Directives Date on File: 07/23/20 service: No 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 Const General: cooperative and no acute distress HENMT Head: Yes normal to inspection and Yes atraumatic Eyes General: appearance normal, both eyes and all related structures Neck Neck: Yes normal visual inspection, Yes full ROM, Yes supple and No tender Chest Chest palpation & inspection: normal inspection of the chest and normal palpation of entire chest wall Resp Effort & Inspection: normal respiratory effort, able to speak in complete sentences and no respiratory distress Auscultation: clear to auscultation bilaterally Cardio Rate: regular rate Rhythm: regular rhythm Peripheral pulses: Peripheral pulses 2+ throughout GI Inspection: Yes normal to inspection Palpation (GI): Soft to palpation, not firm, nontender, no guarding and not rigid Auscultation: normal bowel sounds Course Course Course Narrative: RME performed by Shante Alexander PA-C. Patient is a 28 year old assigned male at presenting with a history of dialysis T, , and Tuesday, to the emergency department with chest pain, headache, and dizziness. Detailed physical exam and review of systems are deferred to the environmental health physician. Labs and swabs ordered. Charge nurse alerted about patient. Reevaluation(s) Reevaluation #1: Patient is afebrile and quite hypertensive. Added CT Head, CXR, lactic acid, and blood cultures due to concern for occult sickness. Reevaluation #2: CT Head unremarkable. CXR unremarkable. Labs reviewed. Baseline anemia 10.6. Baseline thrombocytopenia. VBG with respiratory alkalosis. Lactic acidosis 2.3. Unremarkable TSH Negative COVID/Flu/RSV. UA unremarkable. Discussed with patient given tachypnea, mild hypoxia now requiring 2L NC to keep SpO2 >90%, and recent chest/back pain with shortness of breath - will obtain CTA Chest to r/o PE. Patient is scheduled to have dialysis tomorrow and states he will plan to attend. Explained that contrast will need to be given for the study and patient is agreement. Reevaluation #3: CTA with mild fluid overload without pulmonary embolism. Patient attributes this to thinking that his dry weight has changed. Will plan to trial off O2 for 30min. Patient trialed off O2 for 15min and had O2 fall to 88% on RA so was placed back on 2L NC. Call placed to patient's line construction superintendent, spoke with patient's covering line construction superintendent Dr. Porras who will help to arrange dialysis tomorrow. Plan: Admit to hospitalist Condition: Stable Medications Administered Discontinued Medications Generic Name Dose Route Start Last Admin Trade Name Freq PRN Reason Stop Dose Admin Iohexol 100 ml 10/14/23 17:58 10/14/23 18:02 Iohexol 350 Mg/Ml 100 Ml Infus..Btl IV 10/14/23 17:59 65 ml ONCE ONE Administration Medical Decision Making Lab Data 10/14/23 14:33 10/14/23 14:33 Labs: Lab Results 10/14/23 10/14/23 10/14/23 Range/Units 14:33 16:19 17:05 WBC 6.1 (4.8-10.8) X10*3/uL RBC 3.41 L (4.60-5.80) X10*6/uL Hgb 10.6 L (14.0-18.0) g/dl Hct 31.4 L (42.0-52.0) % MCV 92.1 (80.0-98.0) fL MCH 31.1 (27.0-33.0) pg MCHC 33.8 (31.0-36.0) g/dl RDW 13.2 (11.0-16.0) % Plt Count 123 L (160-400) X10*3/uL MPV 10.7 (9.4-12.4) fL Immature Gran % (Auto) 0.3 (0.0-0.4) % Neut % (Auto) 71.8 (45-73) % Lymph % (Auto) 17.5 L (20-40) % Jack % (Auto) 7.8 (2-11) % Eos % (Auto) 1.8 (0-4) % Baso % (Auto) 0.8 (0-2) % Lymph # (Auto) 1.1 L (1.2-4.9) X10*3/uL Jack # (Auto) 0.5 (0.1-1.2) X10*3/uL Eos # (Auto) 0.1 (0.0-0.4) X10*3/uL Baso # (Auto) 0.1 (0.0-0.2) X10*3/uL Abs Immat Gran (auto) 0.02 (0.00-0.03) X10*3/uL Absolute Neuts (auto) 4.4 (2.0-8.3) x10*3/uL Absolute Nucleated RBC 0.000 (0.0-0.012) X10*3/uL Nucleated RBC % (auto) 0.0 (0.0-0.2) /100WBC VBG pH 7.69 H* (7.32-7.43) VBG pCO2 29 mmHg VBG pO2 236 mmHg VBG HCO3 36 H (22-26) mmol/L VBG O2 Saturation 100.0 % VBG Base Excess 16.0 mmol/L Sodium 143 (135-145) mmol/L Potassium 4.6 (3.3-5.1) mmol/L Chloride 96 (96-108) mmol/L Carbon Dioxide 33 H (22-29) mmol/L Anion Gap 19 (12-20) BUN 23 H (9-16) mg/dL Creatinine 9.91 H* (0.5-1.4) mg/dL Estim Creat Clear Calc 10.8 Estimated GFR 6 Random Glucose 100 (60-115) mg/dL Lactic Acid 2.3 H* (0.5-2.0) mmol/L Calcium 9.5 (8.4-10.2) mg/dL Magnesium 2.3 (1.6-2.6) mg/dL Total Bilirubin 0.8 (0.0-1.0) mg/dL AST 6 (5-37) U/L ALT 5 (0-40) U/L Alkaline Phosphatase 34 L (39-117) U/L Troponin I High Sens 15.2 D (<3.5-35.0) ng/L Total Protein 6.8 (6.5-8.0) g/dL Albumin 4.0 (3.5-5.0) g/dL Lipase 12 (8-78) U/L TSH 0.55 (0.32-4.0) uIU/mL Urine Color Yellow Urine Appearance Clear Urine pH >= 9.0 (5.0-9.0) Ur Specific [place] 1.010 (1.005-1.025) Urine Protein 100 (2+) H (Neg-Trace) mg/dL Urine Glucose (UA) 250 H (Negative) mg/dL Urine Ketones Negative (Negative) mg/dL Urine Blood Trace H (Negative) Urine Nitrite Negative (Negative) Ur Leukocyte Esterase Negative (Negative) Urine RBC 0-2 (0-2) /HPF Urine WBC 0-5 (0-5) /HPF Ur Squamous Epith Cells 0-2 (0-2) /HPF Urine Bacteria None Seen (None Seen) Hyaline Casts 0-2 (0-2) /LPF Influenza Type A (PCR) NEGATIVE (Negative) Influenza Type B (PCR) NEGATIVE (Negative) RSV RNA Qual (PCR) NEGATIVE (Negative) SARS-CoV-2 RNA (RT-PCR) NEGATIVE (Negative) Radiology Impression Discussion of test interpretation with radiology: I have reviewed the radiologist's reading. Radiologist Impression: EXAMINATION: CT HEAD WITHOUT CONTRAST CLINICAL INFORMATION: Headache COMPARISON: None. TECHNIQUE: Contiguous axial imaging was performed from the skull base to vertex without intravenous administration of contrast. Coronal and sagittal reformatted images are performed at the CT scanner. [This CT examination was performed using dose optimization techniques as appropriate, variously including the following: *Automated exposure control *Adjustment of mA and/or kV according to patient size (this includes techniques or standardized protocols for targeted exams where dose is matched to indication/reason for exam; i.e. extremities or head) *Use of iterative reconstruction technique] DLP: 663 mGy-cm. FINDINGS: There is no evidence of acute intracranial hemorrhage or territorial infarction. No abnormal mass-effect or midline shift is seen. Cai to white matter differentiation is well preserved. No extra-axial fluid collections are identified. The ventricles are normal in size. There is no abnormal attenuation within the brain parenchyma. There is no osseous abnormality. Lobular mucosal thickening in the left maxillary sinus. Mastoid air cells and middle ear cavities are normally aerated. CT/CT head/brain wo IV con IMPRESSION: No acute intracranial pathology. EXAMINATION: XR CHEST CLINICAL INFORMATION: Chest pain COMPARISON: Chest x-ray October 11, 2023 TECHNIQUE: 2 views of the chest were obtained. FINDINGS: No significant abnormality is noted involving the heart, lungs, mediastinum, bony thorax or soft tissues. XR/XR chest 2V IMPRESSION: Unremarkable examination. EXAMINATION: CT ANGIOGRAM OF THE CHEST WITH AND WITHOUT CONTRAST (CT PULMONARY ANGIOGRAM FOR PE) CLINICAL INFORMATION: Reason for Exam Tachypnea, hypoxia, on dialysis COMPARISON: Previous chest x-ray from earlier the same day TECHNIQUE: Prior to contrast administration, noncontrast localization images were obtained. Subsequently, multidetector volumetric imaging was performed from the thoracic inlet to below the diaphragms following the administration of 65 mL Omnipaque 350 intravenous contrast. No contrast reaction reported Sagittal, coronal, and MIP oblique sagittal reformatted images were obtained on the CT workstation, uploaded to PACS, and reviewed. This CT examination was performed using dose optimization techniques as appropriate, variously including the following: *Automated exposure control *Adjustment of mA and/or kV according to patient size (this includes techniques or standardized protocols for targeted exams where dose is matched to indication/reason for exam; i.e. extremities or head) *Use of iterative reconstruction technique Total exam dose-length product 344 mGy-cm FINDINGS: QUALITY OF STUDY/CONTRAST BOLUS: Satisfactory. PULMONARY ARTERIES: No pulmonary emboli. THORACIC AORTA: No aneurysm. LUNG: Diffuse groundglass attenuation throughout the lungs and increased septal markings. This probably represents pulmonary edema. PLEURA: No pleural effusion or pneumothorax. MEDIASTINUM: Enlarged heart. No pericardial effusion. No hilar or mediastinal lymphadenopathy. No evidence of septal bowing or right heart strain. Surgical clips around the thyroid gland question previous parathyroidectomy. CORONARY ARTERY CALCIFICATION: None visualized on this study. CHEST WALL/AXILLA: No axillary or internal mammary lymphadenopathy. OSSEOUS STRUCTURES: No acute or suspicious osseous abnormality. Increased bone sclerosis questionable for renal osteodystrophy. UPPER ABDOMEN: Liver and spleen not completely imaged but appear prominent. No reflux of contrast into the hepatic veins to suggest elevated right heart pressures. CT/CT angio chest PE protocol IMPRESSION: No evidence of pulmonary embolism. Diffuse groundglass attenuation in the lungs mild increased septal markings. This probably represents pulmonary edema. Differential would include pneumonia. Discharge Plan Discharge Clinical Impression: ESRD (end stage renal disease), Pulmonary edema Patient Disposition: Admitted As Inpatient Print Language: Sami
--- NOTE | 2023-10-14 13:33 | ECG_ITS ---
Test Reason : CHEST PAIN Blood Pressure : / mmHG Vent. Rate : 090 BPM Atrial Rate : 090 BPM P-R Int : 128 ms QRS Dur : 078 ms QT Int : 382 ms P-R-T Axes : 068 014 060 degrees QTc Int : 467 ms Normal sinus rhythm Minimal voltage criteria for LVH, may be normal variant ( R in aVL ) Borderline ECG When compared with ECG of 11-OCT-2023 15:31, No significant change was found Referred By: Shante Alexander Electronically Signed By:BERNADINE MONTOYA MD
[2023-10-14 14:46] LABS: MANUAL DIFF FLAG NO
[2023-10-14 14:52] LABS: Basophils Absolute Auto 0.1 X10*3/uL (0.0-0.2); Basophils Percent Auto 0.8 % (0-2); Eosinophils Absolute Auto 0.1 X10*3/uL (0.0-0.4); Eosinophils Percent Auto 1.8 % (0-4); Hematocrit 31.4 % (42.0-52.0); Hemoglobin 10.6 g/dl (14.0-18.0); Imm Gran Abs Auto 0.02 X10*3/uL (0.00-0.03); Imm Gran Pct Auto 0.3 % (0.0-0.4); Lymphocytes Absolute Auto 1.1 X10*3/uL (1.2-4.9); Lymphocytes Percent Auto 17.5 % (20-40); Mean Corpuscular HGB Conc 33.8 g/dl (31.0-36.0); Mean Corpuscular Hemoglobin 31.1 pg (27.0-33.0); Mean Corpuscular Volume 92.1 fL (80.0-98.0); Mean Platelet Volume 10.7 fL (9.4-12.4); Monocytes Absolute Auto 0.5 X10*3/uL (0.1-1.2); Monocytes Percent Auto 7.8 % (2-11); Neutrophils Absolute Auto 4.4 x10*3/uL (2.0-8.3); Neutrophils Percent Auto 71.8 % (45-73); Platelet Count 123 X10*3/uL (160-400); Red Blood Count 3.41 X10*6/uL (4.60-5.80); Red Cell Distribution Width 13.2 % (11.0-16.0); White Blood Count 6.1 X10*3/uL (4.8-10.8)
[2023-10-14 14:59] LABS: Lactic Acid 2.3 mmol/L (0.5-2.0)
[2023-10-14 15:24] LABS: Thyroid Stimulating Hormone 0.55 uIU/mL (0.32-4.0)
[2023-10-14 15:28] LABS: Alanine Aminotransferase 5 U/L (0-40); Alkaline Phosphatase 34 U/L (39-117); Anion Gap 19 (12-20); Aspartate Amino Transferase 6 U/L (5-37); Bilirubin Total 0.8 mg/dL (0.0-1.0); Blood Urea Nitrogen 23 mg/dL (9-16); Calcium 9.5 mg/dL (8.4-10.2); Carbon Dioxide 33 mmol/L (22-29); Chloride 96 mmol/L (96-108); Creatinine Clr Calc Pharmacy 10.8; Estimated Glomerular Filt Rate 6; Glucose Random 100 mg/dL (60-115); Lipase 12 U/L (8-78); Magnesium 2.3 mg/dL (1.6-2.6); Potassium 4.6 mmol/L (3.3-5.1); Sodium 143 mmol/L (135-145); Total Protein 6.8 g/dL (6.5-8.0)
[2023-10-14 15:36] LABS: Influenza A PCR NEGATIVE (Negative); Influenza B PCR NEGATIVE (Negative); Resp Syncy Virus RNA Qual PCR NEGATIVE (Negative); SARS COV2 PCR INHOUSE NEGATIVE (Negative)
--- NOTE | 2023-10-14 15:45 | PC.NURSE ---
assumed care of this patient at 1500, patient placed on gambling monitor at this time, noted to be saturating at 90% on RA, placed on 2L provider made aware. Patient states his dobby loom fixer is Dr. Alcala
[2023-10-14 16:26] LABS: VBG HCO3 36 mmol/L (22-26); VBG pCO2 29 mmHg; VBG pH 7.69 (7.32-7.43); VBG pO2 236 mmHg
[2023-10-14 16:27] LABS: Venous Blood Gas Refer to POC result
[2023-10-14 16:41] LABS: Reflex Lactate? Lactic Acid Added
[2023-10-14 16:59] LABS: Troponin-I High Sensitivity 15.2 ng/L (<3.5-35.0)
[2023-10-14 17:35] LABS: Appearance Urine Clear; Color Urine Yellow; Glucose Urine UA 250 mg/dL (Negative); Leukocyte Esterase Urine Negative (Negative); Nitrite Urine Negative (Negative); PH >= 9.0 (5.0-9.0); UMIC TRIGGER UACC YES; Urine Blood Trace (Negative); Urine Ketones Negative (Negative); Urine Protein 100 (2+) mg/dL (Neg-Trace)
[2023-10-14 17:42] LABS: Bacteria Urine None Seen (None Seen); Hyaline Casts Urine 0-2 /LPF (0-2); RBC Urine 0-2 /HPF (0-2); Squamous Epithelial Cell Urine 0-2 /HPF (0-2); WBC Urine 0-5 /HPF (0-5)
[2023-10-14] MEDS: iohexoL 350 MG/ML 100 ML INFUS..BTL IV (18:02)
[2023-10-14] MEDS: Furosemide 20 MG/2 ML VIAL IVPUSH (20:31)
--- NOTE | 2023-10-14 20:46 | PHA.MEDREC ---
Pharmacy Consult ? Medication Reconciliation Pharmacy has completed the medication reconciliation with pt. Pt was able to verbalize doses of medications. Pt stated he take calcitriol after dialysis days on TuThSa, 2 tablets of sevelmer with every meal, and said he is no longer on warfarin and was switched to eliquis but has had a hard time with adherence because it is twice daily. Pt also said he sometimes uses mary-seltzer plus and NyQuil OTC.
[2023-10-14 20:47] LABS: ~Lactic Acid-LAB USE ONLY 0.9 mmol/L (0.5-2.0)
[2023-10-14] MEDS: Apixaban 5 MG TABLET PO (22:30)
--- NOTE | 2023-10-14 22:57 | P.HPHOSP_ITS ---
History of Present Illness Date of Service: 10/14/23 Attending physician on admission: Jc Do Chief Complaint: Shortness on breath Sagar Mariee is a 28 years old man with past medical history significant for end-stage renal disease on HD (TTS) and hypertension presents complaining of worsening shortness of breath over the last 2 days associated with minimally productive cough and chest tightness. He denied fever or chills. Shortness on breath is worse with ambulation. He mentioned that on Tuesday he was having left ear pain for which seek medical attention at urgent care with no signs of infection were found. He also noted that his blood pressure is higher than usual. Patient did not report any acute gastrointestinal or genitourinary symptoms. He denied tobacco smoking, alcohol abuse or illicit drug use. In the ED, he was found to have oxygen saturation 88% on room air. Last blood pressure is 180/110. There is no fever tachycardia. I did personally check patient's O2 sats on RAat rest and with ambulation and O2 sats remained over 94%. Blood workup showed no significant electrolyte imbalances. CO2 is 33. BUN is 23 and creatinine 9.91. There is minimal lactic acidosis of 2.3 the normalized without interventions. LFTs, albumin, lipase and TSH are normal. Review of Systems 2 Review of Systems: All 12 systems were reviewed and normal except as noted in HPI. 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) Alcohol intake: never Comment: Patient sleeping Patient Tobacco Use Status: Tobacco use Unknown Substance Use Type: Marijuana Advance Directives: Yes Advance Directives on File: Yes Advance Directives Date on File: 07/23/20 Nutrition Risks: No Nutritional Risk service: No Current occupational status: employed 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 Meds Allergies Allergy/AdvReac Type Severity Reaction Status Date / Time No Known Allergies Allergy Verified 10/14/23 13:31 Active Medications: Current Medications Apixaban (Apixaban 5 Mg Tablet) 5 mg PO BID [facility] Last Admin: 10/14/23 22:30 Dose: 5 mg Lisinopril (Lisinopril 20 Mg Tablet) 20 mg PO DAILY [facility]; Protocol Loperamide HCl (Loperamide Hcl 2 Mg Capsule) 2 mg PO Q6H PRN PRN Reason: loose stool Non-Formulary Medication (Calcitriol) 0.5 mcg PO TUTHSA [facility] Sevelamer Carbonate (Sevelamer Carbonate Tablet 800 Mg Tablet) 1,600 mg PO TIDAC [facility] Sodium Chloride (0.9 % Sodium Chloride Flush 3 Ml Syringe) [facility] Vitamin D (Cholecalciferol (Vitamin D3) 25 Mcg Tablet) 50 mcg PO DAILY [facility] Zolpidem Tartrate (Zolpidem Tartrate 5 Mg Tablet) 5 mg PO BEDTIME PRN PRN Reason: Insomnia Home Medications ?Medication ?Instructions ?Recorded ?Confirmed ?Last Taken ?Type acetaminophen 325 mg tablet 650 mg PO Q6H PRN Pain 04/23/21 10/14/23 Unknown History cholecalciferol (vitamin D3) 50 1 cap PO DAILY 04/23/21 10/14/23 04/22/21 History mcg (2,000 unit) capsule sevelamer carbonate 800 mg tablet 1,600 mg PO TIDAC 04/23/21 10/14/23 04/22/21 History apixaban 5 mg tablet (Eliquis) 5 mg PO BID 10/14/23 10/14/23 Unknown History calcitriol 0.5 mcg capsule 0.5 mcg PO TUTHSA 10/14/23 10/14/23 Unknown History lisinopril 20 mg tablet 20 mg PO DAILY 10/14/23 10/14/23 10/14/23 History zolpidem 5 mg tablet 5 mg PO BEDTIME PRN Insomnia 10/14/23 10/14/23 Unknown History Physical Exam 2 Vital Signs and Narrative: Vital Signs: Last Vital Signs Temp 98.2 F 10/14/23 20:28 Pulse 96 10/14/23 22:34 Resp 14 10/14/23 22:34 BP 180/110 H 10/14/23 22:34 Pulse Ox 97 10/14/23 22:34 O2 Del Method Nasal Cannula 10/14/23 20:28 O2 Flow Rate 2 04/26/24 20:28 BMI result Body Mass Index 25.6 Const: General: cooperative, healthy appearing, comfortable, no acute distress, well developed, alert, awake and Physically active O rientation/consciousness: patient oriented x3 HEENT: Head: Yes normocephalic and Yes atraumatic Ears: external ears normal and TM's normal bilaterally Eyes: Pupils: Equal, round and reactive pupils present Neck: Yes no meningeal signs Chest: Chest palpation & inspection: normal inspection of the chest Resp: Effort & Inspection: normal respiratory effort, able to speak in complete sentences, not labored and no use of accessory muscles Auscultation: other (Very minimal crackles at bases) Cardio: Jugular venous distension: no JVD Rate: regular rate Rhythm: r egular rhythm GI: Inspection: No distended Rectal Exam - Male: Yes deferred Skin: General skin exam: no rashes or lesions noted Lesions: no lesions Neuro: General: patient oriented x3, moves all extremities, no meningeal signs and no focal motor deficits Cranial nerves: Yes Equal, round and reactive pupils present and Yes Bilaterally intact EOM present Extrem: General: Yes full ROM, Yes no pedal edema and Yes no calf tenderness Psych: Appearance: grossly normal Mental Status: mental status grossly normal Speech and movement: Normal speech and movement present Affect: n ormal affect Attitude: cooperative Thought process: Normal thought process present Thought content: Normal thought content present Insight: Good insight present (Psych) Judgement: Good judgement present (Psych) Results Labs 10/14/23 14:33 10/14/23 14:33 Labs: Laboratory Results - last 24 hr 10/14/23 10/14/23 10/14/23 14:33 16:19 17:05 MCV 92.1 MCH 31.1 MCHC 33.8 RDW 13.2 Plt Count 123 L MPV 10.7 Immature Gran % (Auto) 0.3 Neut % (Auto) 71.8 Lymph % (Auto) 17.5 L [place] % (Auto) 7.8 Eos % (Auto) 1.8 Baso % (Auto) 0.8 Lymph # (Auto) 1.1 L [place] # (Auto) 0.5 Eos # (Auto) 0.1 Baso # (Auto) 0.1 Abs Immat Gran (auto) 0.02 Absolute Neuts (auto) 4.4 Absolute Nucleated RBC 0.000 Nucleated RBC % (auto) 0.0 Hold Purple Top VBG pH 7.69 H* VBG pCO2 29 VBG pO2 236 VBG HCO3 36 H VBG O2 Saturation 100.0 VBG Base Excess 16.0 Anion Gap 19 Estim Creat Clear Calc 10.8 Estimated GFR 6 Random Glucose 100 Lactic Acid 2.3 H* Lactic Acid F/U @ 2Hr Calcium 9.5 Magnesium 2.3 Total Bilirubin 0.8 AST 6 ALT 5 Alkaline Phosphatase 34 L Troponin I High Sens 15.2 D Total Protein 6.8 Albumin 4.0 Lipase 12 TSH 0.55 Urine Color Yellow Urine Appearance Clear Urine pH >= 9.0 Ur Specific [place] 1.010 Urine Protein 100 (2+) H Urine Glucose (UA) 250 H Urine Ketones Negative Urine Blood Trace H Urine Nitrite Negative Ur Leukocyte Esterase Negative Urine RBC 0-2 Urine WBC 0-5 Ur Squamous Epith Cells 0-2 Urine Bacteria None Seen Hyaline Casts 0-2 Influenza Type A (PCR) NEGATIVE Influenza Type B (PCR) NEGATIVE RSV RNA Qual (PCR) NEGATIVE SARS-CoV-2 RNA (RT-PCR) NEGATIVE 10/14/23 20:26 MCV MCH MCHC RDW Plt Count MPV Immature Gran % (Auto) Neut % (Auto) Lymph % (Auto) [place]icks[place] % (Auto) Eos % (Auto) Baso % (Auto) Lymph # (Auto) [place] # (Auto) Eos # (Auto) Baso # (Auto) Abs Immat Gran (auto) Absolute Neuts (auto) Absolute Nucleated RBC Nucleated RBC % (auto) Hold Purple Top SEE NOTE VBG pH VBG pCO2 VBG pO2 VBG HCO3 VBG O2 Saturation VBG Base Excess Anion Gap Estim Creat Clear Calc Estimated GFR Random Glucose Lactic Acid Lactic Acid F/U @ 2Hr 0.9 Calcium Magnesium Total Bilirubin AST ALT Alkaline Phosphatase Troponin I High Sens Total Protein Albumin Lipase TSH Urine Color Urine Appearance Urine pH Ur Specific [place] Urine Protein Urine Glucose (UA) Urine Ketones Urine Blood Urine Nitrite Ur Leukocyte Esterase Urine RBC Urine WBC Ur Squamous Epith Cells Urine Bacteria Hyaline Casts Influenza Type A (PCR) Influenza Type B (PCR) RSV RNA Qual (PCR) SARS-CoV-2 RNA (RT-PCR) Imaging Radiologist's Impressions: Impressions Head CT 10/14/23 14:44 IMPRESSION: No acute intracranial pathology. Chest X-Ray 10/14/23 14:46 IMPRESSION: Unremarkable examination. Chest CTA 10/14/23 18:07 IMPRESSION: No evidence of pulmonary embolism. Diffuse groundglass attenuation in the lungs mild increased septal markings. This probably represents pulmonary edema. Differential would include pneumonia. VTE: Assessment and Plan (1) Shortness of breath: Status: Acute (2) ESRD on hemodialysis: Status: Acute (3) Fluid overload: Qualifiers: Hypervolemia type: other Qualified Code(s): E87.79 - Other fluid overload Status: Acute (4) Anemia in chronic kidney disease: Qualifiers: Chronic kidney disease stage: on chronic dialysis Qualified Code(s): N 18.6 - End stage renal disease; D63.1 - Anemia in chronic kidney disease; Z99.2 - Dependence on renal dialysis Status: Acute (5) Hypertension: Qualifiers: Hypertension type: renovascular hypertension Qualified Code(s): I15.0 - Renovascular hypertension Status: Acute (6) History of DVT (deep vein thrombosis): Status: Acute Plan Sagar Mariee is a 28 years old man admitted with * Shortness on breath, possible fluid overload. Admit to hospitalist service. Lasix 20 mg IV X1. Pulse oximetry. Oxygen supplementation as needed. Nephrology consult. * Uncontrolled hypertension. Continue lisinopril. Hydralazine 50 mg p.o. now then q8h as needed. * ESRD on HD. Renal diet. Continue calcitriol and sevelamer. * History of DVT. Continue Eliquis. * Anemia, chronic. Continue to monitor. DVT prophylaxis: Eliquis Code status: Full Patient will need hospitalization for at least 2 midnights due to shortness on breath and possible fluid overload management with IV diuretics. Patient will also need to be evaluated by nephrology service to arrange for hemodialysis tomorrow. Quality Stroke Does the patient have a stroke diagnosis?: No VTE Prior VTE?: No VTE Risk Level:: Medical - moderate - high VTE Device Contraindication: Treatment Not Indicated VTE Drug Contraindication: N/A - Med Ordered
[2023-10-14] MEDS: hydrALAZINE HCl 50 MG TABLET PO (23:18)
[2023-10-15] VITALS (9 sets, daily range): BP systolic 144–187; BP diastolic 87–110; PULSE 85–99; RESP 16–20; TEMP 36.4–36.9; O2SAT 95–99
[2023-10-15] MEDS: 0.9 % Sodium Chloride Flush 3 ML SYRINGE IVFLUSH ×4 (00:02→20:06)
[2023-10-15 06:02] LABS: MANUAL DIFF FLAG NO
[2023-10-15 06:21] LABS: Basophils Percent Auto 0.6 % (0-2); Eosinophils Absolute Auto 0.2 X10*3/uL (0.0-0.4); Eosinophils Percent Auto 2.5 % (0-4); Hematocrit 31.3 % (42.0-52.0); Hemoglobin 10.5 g/dl (14.0-18.0); Imm Gran Abs Auto 0.03 X10*3/uL (0.00-0.03); Imm Gran Pct Auto 0.4 % (0.0-0.4); Lymphocytes Absolute Auto 1.5 X10*3/uL (1.2-4.9); Lymphocytes Percent Auto 20.5 % (20-40); Mean Corpuscular HGB Conc 33.5 g/dl (31.0-36.0); Mean Corpuscular Hemoglobin 31.4 pg (27.0-33.0); Mean Corpuscular Volume 93.7 fL (80.0-98.0); Mean Platelet Volume 10.8 fL (9.4-12.4); Monocytes Absolute Auto 0.5 X10*3/uL (0.1-1.2); Monocytes Percent Auto 6.9 % (2-11); Neutrophils Absolute Auto 4.9 x10*3/uL (2.0-8.3); Neutrophils Percent Auto 69.1 % (45-73); Platelet Count 122 X10*3/uL (160-400); Red Blood Count 3.34 X10*6/uL (4.60-5.80); Red Cell Distribution Width 13.2 % (11.0-16.0); White Blood Count 7.1 X10*3/uL (4.8-10.8)
[2023-10-15 06:28] LABS: Anion Gap 19 (12-20); Blood Urea Nitrogen 30 mg/dL (9-16); Calcium 9.1 mg/dL (8.4-10.2); Carbon Dioxide 31 mmol/L (22-29); Chloride 96 mmol/L (96-108); Creatinine Clr Calc Pharmacy 9.5; Estimated Glomerular Filt Rate 6; Glucose Random 84 mg/dL (60-115); Potassium 4.7 mmol/L (3.3-5.1); Sodium 141 mmol/L (135-145)
--- NOTE | 2023-10-15 06:43 | PC.NURSE ---
notified of pt c/o sob and difficulty breathing his o2 sats 94%- 97 % it was reported from ed pt. needs dialysis.
[2023-10-15] MEDS: Sevelamer Carbonate Tablet 800 MG TABLET 1600 MG PO ×3 (07:27→16:17)
[2023-10-15] MEDS: lisinopriL 20 MG TABLET PO (07:27)
[2023-10-15] MEDS: Cholecalciferol (Vitamin D3) 25 MCG TABLET 50 MCG PO (07:28)
[2023-10-15] MEDS: Apixaban 5 MG TABLET PO ×2 (07:28→20:03)
--- NOTE | 2023-10-15 08:38 | PC.NURSE ---
up to HD at this time.
--- NOTE | 2023-10-15 09:47 | MHC.CM.PN ---
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 PT VERIFIES PCP ON FILE IS CORRECT, PT EDUCATED ON AND DECLINES TO COMPLETE A HCP.
--- NOTE | 2023-10-15 11:29 | P.PNIM_ITS ---
Subjective Subjective Date of Service: 10/15/23 Review of Systems Follow up fluid overload ESRD patient in dialysis Physical Exam 2 Vital Signs: Vital Signs: Last Vital Signs Temp 98.1 F 10/15/23 07:57 Pulse 99 10/15/23 07:57 Resp 18 10/15/23 07:57 BP 182/110 H 10/15/23 07:57 Pulse Ox 97 10/15/23 07:57 O2 Del Method Nasal Cannula 10/15/23 07:57 O2 Flow Rate 2.0 10/15/23 07:57 BMI result Body Mass Index 25.6 Appearing in no acute distress lung sounds are clear to auscultation heart regular rate rhythm, clear S1, S2 positive bowel sounds, abdomen is soft, nontender neuro patient is alert x3, no focal deficits Objective Data Active Medications Apixaban (Apixaban 5 Mg Tablet) 5 mg PO BID [facility] Last Admin: 10/15/23 07:28 Dose: 5 mg Documented By: KUSHAL Lisinopril (Lisinopril 20 Mg Tablet) 20 mg PO DAILY [facility]; Protocol Last Admin: 10/15/23 07:27 Dose: 20 mg Documented By: KUSHAL Loperamide HCl (Loperamide Hcl 2 Mg Capsule) 2 mg PO Q6H PRN PRN Reason: loose stool Non-Formulary Medication (Calcitriol) 0.5 mcg PO TUTHSA [facility] Sevelamer Carbonate (Sevelamer Carbonate Tablet 800 Mg Tablet) 1,600 mg PO TIDAC [facility] Last Admin: 10/15/23 07:27 Dose: 1,600 mg Documented By: KUSHAL Sodium Chloride (0.9 % Sodium Chloride Flush 3 Ml Syringe) 3 ml IVFLUSH QSHIFT [facility] Last Admin: 10/15/23 07:23 Dose: 3 ml Documented By: KUSHAL Vitamin D (Cholecalciferol (Vitamin D3) 25 Mcg Tablet) 50 mcg PO DAILY [facility] Last Admin: 10/15/23 07:28 Dose: 50 mcg Documented By: KUSHAL Zolpidem Tartrate (Zolpidem Tartrate 5 Mg Tablet) 5 mg PO BEDTIME PRN PRN Reason: Insomnia Labs 10/15/23 05:51 10/15/23 05:51 Labs: Laboratory Results - last 24 hr 10/14/23 10/14/23 10/14/23 14:33 16:19 17:05 MCV 92.1 MCH 31.1 MCHC 33.8 RDW 13.2 Plt Count 123 L MPV 10.7 Immature Gran % (Auto) 0.3 Neut % (Auto) 71.8 Lymph % (Auto) 17.5 L [place] % (Auto) 7.8 Eos % (Auto) 1.8 Baso % (Auto) 0.8 Lymph # (Auto) 1.1 L [place] # (Auto) 0.5 Eos # (Auto) 0.1 Baso # (Auto) 0.1 Abs Immat Gran (auto) 0.02 Absolute Neuts (auto) 4.4 Absolute Nucleated RBC 0.000 Nucleated RBC % (auto) 0.0 Hold Purple Top VBG pH 7.69 H* VBG pCO2 29 VBG pO2 236 VBG HCO3 36 H VBG O2 Saturation 100.0 VBG Base Excess 16.0 Anion Gap 19 Estim Creat Clear Calc 10.8 Estimated GFR 6 Random Glucose 100 Lactic Acid 2.3 H* Lactic Acid F/U @ 2Hr Calcium 9.5 Magnesium 2.3 Total Bilirubin 0.8 AST 6 ALT 5 Alkaline Phosphatase 34 L Troponin I High Sens 15.2 D Total Protein 6.8 Albumin 4.0 Lipase 12 TSH 0.55 Urine Color Yellow Urine Appearance Clear Urine pH >= 9.0 Ur Specific [place] 1.010 Urine Protein 100 (2+) H Urine Glucose (UA) 250 H Urine Ketones Negative Urine Blood Trace H Urine Nitrite Negative Ur Leukocyte Esterase Negative Urine RBC 0-2 Urine WBC 0-5 Ur Squamous Epith Cells 0-2 Urine Bacteria None Seen Hyaline Casts 0-2 Influenza Type A (PCR) NEGATIVE Influenza Type B (PCR) NEGATIVE RSV RNA Qual (PCR) NEGATIVE SARS-CoV-2 RNA (RT-PCR) NEGATIVE 10/14/23 10/15/23 20:26 05:51 MCV 93.7 MCH 31.4 MCHC 33.5 RDW 13.2 Plt Count 122 L MPV 10.8 Immature Gran % (Auto) 0.4 Neut % (Auto) 69.1 Lymph % (Auto) 20.5 [place] % (Auto) 6.9 Eos % (Auto) 2.5 Baso % (Auto) 0.6 Lymph # (Auto) 1.5 [place] # (Auto) 0.5 Eos # (Auto) 0.2 Baso # (Auto) 0.0 Abs Immat Gran (auto) 0.03 Absolute Neuts (auto) 4.9 Absolute Nucleated RBC 0.000 Nucleated RBC % (auto) 0.0 Hold Purple Top SEE NOTE VBG pH VBG pCO2 VBG pO2 VBG HCO3 VBG O2 Saturation VBG Base Excess Anion Gap 19 Estim Creat Clear Calc 9.5 Estimated GFR 6 Random Glucose 84 Lactic Acid Lactic Acid F/U @ 2Hr 0.9 Calcium 9.1 Magnesium Total Bilirubin AST ALT Alkaline Phosphatase Troponin I High Sens Total Protein Albumin Lipase TSH Urine Color Urine Appearance Urine pH Ur Specific [place] Urine Protein Urine Glucose (UA) Urine Ketones Urine Blood Urine Nitrite Ur Leukocyte Esterase Urine RBC Urine WBC Ur Squamous Epith Cells Urine Bacteria Hyaline Casts Influenza Type A (PCR) Influenza Type B (PCR) RSV RNA Qual (PCR) SARS-CoV-2 RNA (RT-PCR) Assessment and Plan (1) Anemia in chronic kidney disease: Status: Acute (2) Fluid overload: Status: Acute Plan 28 year old man admitted with HTN and fluid overload secondary to ESRD Fluid overload. Unspecified Lasix 20 mg IV x1 Oxygen supplementation as needed Dialysis today Uncontrolled hypertension, hypertensive urgency Continue lisinopril Hydralazine 25 t.i.d. added Follow blood pressure closely End-stage renal disease on dialysis Schedule Tuesday, and Tuesday Nephrology consultation History of DVT Continue Ana María History of chronic anemia Likely secondary to renal disease DVT prophylaxis with Ana María Attending Beyond Full code Continue hospitalization for treatment of fluid overload requiring dialysis and IV diuretics, nephrology to follow Quality Stroke Does the patient have a stroke diagnosis?: No VTE Prior VTE?: No VTE Risk Level:: Medical - moderate - high VTE Device Contraindication: Treatment Not Indicated VTE Drug Contraindication: N/A - Med Ordered
--- NOTE | 2023-10-15 12:01 | PC.NURSE ---
RT asked to see patient after he comes back from HD
[2023-10-15] MEDS: hydrALAZINE HCl 25 MG TABLET PO ×2 (13:28→15:11)
--- NOTE | 2023-10-15 13:39 | PC.NURSE ---
Doing well on RA, tolerating being off O2, showered.
[2023-10-15] MEDS: hydrALAZINE HCl 50 MG TABLET PO (20:03)
--- NOTE | 2023-10-15 21:02 | P.CONNP_ITS ---
History of Present Illness Reason for Consult Consult date: 10/15/23 Chief Complaint Chief complaint: Fluid Overload History of Present Illness Narrative: 28 years old man with past medical history significant for end-stage renal disease on HD (TTS) and hypertension presents complaining of worsening shortness of breath - 2 days no h/o fever or chills. [place] + In the ED, he was found to have oxygen saturation 88% on room air. [facility] Past Medical History Medical History (Updated 10/14/23 @ 23:15 by Jc Do MD) History of DVT (deep vein thrombosis) 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 AV fistula Hypertension Anemia in chronic kidney disease ESRD (end stage renal disease) Renal failure, acute on chronic Hypertension Chronic kidney disease Social History Social History Household Members: Family Household Members Other:: mother Housing: House Do you presently have visiting nurse or other home services: No Alcohol intake: never Comment: Patient sleeping Patient Tobacco Use Status: Tobacco use Unknown e-Cigarette/Vaping Use: Never Used Substance Use Type: Marijuana Advance Directives Date on File: 07/23/20 service: No Current occupational status: employed 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 Meds Allergies Allergy/AdvReac Type Severity Reaction Status Date / Time No Known Allergies Allergy Verified 10/14/23 13:31 Active Medications: Current Medications Apixaban (Apixaban 5 Mg Tablet) 5 mg PO BID [facility] Last Admin: 10/15/23 20:03 Dose: 5 mg Hydralazine HCl (Hydralazine Hcl 50 Mg Tablet) 50 mg PO TID [facility]; Protocol Last Admin: 10/15/23 20:03 Dose: 50 mg Lisinopril (Lisinopril 20 Mg Tablet) 20 mg PO DAILY [facility]; Protocol Last Admin: 10/15/23 07:27 Dose: 20 mg Loperamide HCl (Loperamide Hcl 2 Mg Capsule) 2 mg PO Q6H PRN PRN Reason: loose stool Non-Formulary Medication (Calcitriol) 0.5 mcg PO TUTHSA [facility] Sevelamer Carbonate (Sevelamer Carbonate Tablet 800 Mg Tablet) 1,600 mg PO TIDAC [facility] Last Admin: 10/15/23 16:17 Dose: 1,600 mg Sodium Chloride (0.9 % Sodium Chloride Flush 3 Ml Syringe) 3 ml IVFLUSH QSHIFT [facility] Last Admin: 10/15/23 20:06 Dose: 3 ml Vitamin D (Cholecalciferol (Vitamin D3) 25 Mcg Tablet) 50 mcg PO DAILY [facility] Last Admin: 10/15/23 07:28 Dose: 50 mcg Zolpidem Tartrate (Zolpidem Tartrate 5 Mg Tablet) 5 mg PO BEDTIME PRN PRN Reason: Insomnia Home Medications ?Medication ?Instructions ?Recorded ?Confirmed ?Last Taken ?Type acetaminophen 325 mg tablet 650 mg PO Q6H PRN Pain 04/23/21 10/14/23 Unknown History cholecalciferol (vitamin D3) 50 1 cap PO DAILY 04/23/21 10/14/23 04/22/21 History mcg (2,000 unit) capsule sevelamer carbonate 800 mg tablet 1,600 mg PO TIDAC 04/23/21 10/14/23 04/22/21 History apixaban 5 mg tablet (Eliquis) 5 mg PO BID 10/14/23 10/14/23 Unknown History calcitriol 0.5 mcg capsule 0.5 mcg PO TUTHSA 10/14/23 10/14/23 Unknown History lisinopril 20 mg tablet 20 mg PO DAILY 10/14/23 10/14/23 10/14/23 History zolpidem 5 mg tablet 5 mg PO BEDTIME PRN Insomnia 10/14/23 10/14/23 Unknown History Physical Exam Vital Signs: Last Vital Signs Temp 97.6 F 10/15/23 20:00 Pulse 91 10/15/23 20:00 Resp 18 10/15/23 20:00 BP 187/106 H 10/15/23 20:03 Pulse Ox 99 10/15/23 20:00 O2 Del Method Room Air 10/15/23 20:00 O2 Flow Rate 2.0 10/15/23 07:57 BMI result Body Mass Index 25.6 cvs; s1s2 RSf; cta Abd; soft Results Lab Results 10/15/23 05:51 10/15/23 05:51 Lab results: Chemistry 10/14/23 10/15/23 14:33 05:51 Sodium 143 141 Potassium 4.6 4.7 Carbon Dioxide 33 H 31 H BUN 23 H 30 H Creatinine 9.91 H* 11.22 H* Calcium 9.5 9.1 Hematology 10/14/23 10/15/23 14:33 05:51 WBC 6.1 7.1 Hgb 10.6 L 10.5 L Plt Count 123 L 122 L Urinalysis 10/14/23 17:05 Urine Color Yellow Urine Appearance Clear Urine pH >= 9.0 Ur Specific [place] 1.010 Urine Protein 100 (2+) H Urine Glucose (UA) 250 H Urine Ketones Negative Urine Blood Trace H Urine Nitrite Negative Ur Leukocyte Esterase Negative Urine RBC 0-2 Urine WBC 0-5 Ur Squamous Epith Cells 0-2 Hyaline Casts 0-2 Assessment and Plan (1) ESRD on hemodialysis: Status: Acute Plan 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
[2023-10-16 03:19] VITALS: BP 159/81; PULSE 86; RESP 18; TEMP 36; O2SAT 96
[2023-10-16 06:16] LABS: Anion Gap 19 (12-20); Blood Urea Nitrogen 21 mg/dL (9-16); Calcium 9.6 mg/dL (8.4-10.2); Carbon Dioxide 27 mmol/L (22-29); Chloride 95 mmol/L (96-108); Creatinine Clr Calc Pharmacy 13.2; Estimated Glomerular Filt Rate 8; Glucose Random 81 mg/dL (60-115); Potassium 4.3 mmol/L (3.3-5.1); Sodium 137 mmol/L (135-145)
[2023-10-16] MEDS: 0.9 % Sodium Chloride Flush 3 ML SYRINGE IVFLUSH (07:04)
[2023-10-16] MEDS: Sevelamer Carbonate Tablet 800 MG TABLET 1600 MG PO (07:05)
--- NOTE | 2023-10-16 07:16 | PM.DS ---
DS: Providers Provider Date of Service: 10/16/23 Date of admission: 10/14/23 21:41 Primary care physician: Senia Benitez MD Consults: 10/14/23 21:48 Consult to Nephrology Routine Consulting Provider: Alexis Alcala Reason for consultation: Fluid overload Has provider been notified: No DS: Diagnosis Discharge Diagnosis (1) ESRD on hemodialysis: Status: Acute DS: Summary Hospital Course Hospital Course: During physical as per admitting provider. Sagar Mariee is a 28 years old man with past medical history significant for end-stage renal disease on HD (TTS) and hypertension presents complaining of worsening shortness of breath over the last 2 days associated with minimally productive cough and chest tightness. He denied fever or chills. Shortness on breath is worse with ambulation. He mentioned that on Tuesday he was having left ear pain for which seek medical attention at urgent care with no signs of infection were found. He also noted that his blood pressure is higher than usual. Patient did not report any acute gastrointestinal or genitourinary symptoms. He denied tobacco smoking, alcohol abuse or illicit drug use. In the ED, he was found to have oxygen saturation 88% on room air. Last blood pressure is 180/110. There is no fever tachycardia. I did personally check patient's O2 sats on RAat rest and with ambulation and O2 sats remained over 94%. Blood workup showed no significant electrolyte imbalances. CO2 is 33. BUN is 23 and creatinine 9.91. There is minimal lactic acidosis of 2.3 the normalized without interventions. LFTs, albumin, lipase and TSH are normal. 28-year-old man treated for fluid overload likely secondary to end-stage renal disease on dialysis. He did require oxygen for a short period of time and received 1 dose of Lasix in the ER. Received dialysis 10/16/2023 which did decrease his hypoxia. He was also noted to have hypertensive urgency which may have also led to the fluid overload. He was treated with his home dose of lisinopril and hydralazine 50 mg t.i.d. added. Blood pressure is now better controlled at this point. He will go home with the hydralazine to monitor his blood pressure closely and follow with his primary care provider to adjust this medication. He should continue his regularly scheduled dialysis. End-stage renal disease on dialysis. Scheduled Tuesday, and Tuesday History of DVT. Continue Eliquis History of chronic anemia. Likely secondary to renal disease Time Attestation Discharge Coordination Time (in mins): 40 Quality: Safe Use of Opioids Does Pt have an Active Cancer Diagnosis on the Problem List?: No Quality: Stroke Does the patient have a stroke diagnosis?: No Physical Exam Vital Signs: Vital Signs: Last Vital Signs Temp 96.8 F 10/16/23 03:19 Pulse 86 10/16/23 03:19 Resp 18 10/16/23 03:19 BP 159/81 H 10/16/23 03:19 Pulse Ox 96 10/16/23 03:19 O2 Del Method Room Air 10/16/23 03:19 O2 Flow Rate 2.0 10/15/23 07:57 BMI result Body Mass Index 25.6 Appearing in no acute distress head is normocephalic atraumatic eyes pupils are PERRLA sclera is anicteric mouth throat mucous membranes are intact and moist neck is supple no lymphadenopathy, no JVD noted lung sounds are clear to auscultation heart regular rate rhythm, clear S1, S2 positive bowel sounds, abdomen is soft, nontender neuro patient is alert x3, no focal deficits DS: Data Data Completed and Pending Completed studies during hospitalization [Text1]: Procedures Insertion of Infusion Device into Superior Vena Cava, Percutaneous Approach (07/22/20) Performance of Urinary Filtration, Intermittent, Less than 6 Hours Per Day (04/23/21) Removal of Infusion Device from Heart, Open Approach (04/23/21) Ultrasonography of Superior Vena Cava, Guidance (07/22/20) Labs on day of discharge: Laboratory Results - last 24 hr 10/16/23 05:04 Hold Purple Top SEE NOTE Sodium 137 Potassium 4.3 Chloride 95 L Carbon Dioxide 27 Anion Gap 19 BUN 21 H Creatinine 8.09 H* Estim Creat Clear Calc 13.2 Estimated GFR 8 Random Glucose 81 Calcium 9.6 Preliminary micro results at discharge 10/14/23 14:33 Blood Culture - Preliminary Blood - Venous No growth after 24 hours. 10/14/23 14:33 Blood Culture - Preliminary Blood - Venous No growth after 24 hours. Discharge Plan Discharge Anticipated Discharge Date/Time: 10/16/23 07:14 Patient Disposition: Home, Self-Care Discharge Diagnosis: ESRD on dialysis hypoxia Referrals: Senia German MD [Primary Care Provider] - 1 Week Discharge Medications: New hydralazine 50 mg Tablet 50 mg PO TID Qty: 90 0RF Protocol: Hold for SBP< HOLD for SBP < : 90 Continued acetaminophen 325 mg Tablet 650 mg PO Q6H PRN (Reason: Pain) sevelamer carbonate 800 mg tablet 1,600 mg PO TIDAC cholecalciferol (vitamin D3) 50 mcg (2,000 unit) capsule 1 cap PO DAILY lisinopril 20 mg tablet 20 mg PO DAILY calcitriol 0.5 mcg capsule 0.5 mcg PO TUTHSA Rx Instructions: after dialysis zolpidem 5 mg tablet 5 mg PO BEDTIME PRN (Reason: Insomnia) Eliquis 5 mg tablet 5 mg PO BID loperamide [Imodium A-D] 2 mg tablet 2 mg PO Q6H PRN (Reason: loose stool) Qty: 30 1RF Discharge Orders: Discharge Order (Routine); Ordered 10/16/23 Ordered By: Melissa Domingo Diet: Advance to usual diet Activity on Discharge: As tolerated Stand Alone Forms: Patient Portal Discharge page Print Language: Italian Care Plan Goals: Continue regular scheduled Dialysis Check blood pressure daily and document to report to primary care provider or veterinary pharmacologist Health Concerns: ESRD on dialysis Plan of Treatment: Follow up with primary care provider as needed Take all medications as prescribed Assessment: See discharge summary
[2023-10-16 08:00] VITALS: BP 152/62; PULSE 84; RESP 18; TEMP 36.4; O2SAT 98
[2023-10-16] MEDS: Cholecalciferol (Vitamin D3) 25 MCG TABLET 50 MCG PO (08:00)
[2023-10-16] MEDS: hydrALAZINE HCl 50 MG TABLET PO (08:00)
[2023-10-16] MEDS: lisinopriL 20 MG TABLET PO (08:00)
[2023-10-16] MEDS: Apixaban 5 MG TABLET PO (08:00)
--- NOTE | 2023-10-16 08:48 | MHC.CM.PN ---
Addendum entered by Colette Yun 10/16/23 08:58: DC SUMMARY FAXED TO [facility] Original Note: DP: PT HAS BEEN MEDICALLY CLEARED FOR DC HOME, NO SERVICES. PT HAS OWN RIDE HOME
== END 2023-10-16 09:24 | disposition home or self-care (01) | DRG 640 ==
LOC: HO.ED 19:31 → HO.EDOVER 21:53 → HO.S3 22:34
PROVIDERS: Physician Assistant Medical; Admitting Provider Internal Medicine; Emergency Provider Emergency Medicine; PCP Internal Medicine; Visit Provider Nurse Practitioner Acute Care
DX: E87.70 Fluid overload, unspecified (principal); N18.6 End stage renal disease; I12.0 Hypertensive chronic kidney disease with stage 5 chronic kidney disease or end stage renal disease; D63.1 Anemia in chronic kidney disease; I16.0 Hypertensive urgency; I15.0 Renovascular hypertension; Z86.718 Personal history of other venous thrombosis and embolism; Z99.2 Dependence on renal dialysis; Z20.822 Contact with and (suspected) exposure to COVID-19; Z79.01 Long term (current) use of anticoagulants; Z79.899 Other long term (current) drug therapy
CPT/HCPCS: 0241U; 36415; 70450; 71045; 71046; 71275; 80048; 80053; 81001; 82803; 83605; 83690; 83735; 84443; 84484; 85025; 87040; 90999; 93005; 99285; J1940; Q9967

== ENCOUNTER → 2023-10-14 13:33 | Outpatient (BNV) | payer OTHER, SELFPAY | PROVIDERS: Emergency Provider Emergency Medicine; PCP Internal Medicine; Visit Provider Internal Medicine Cardiovascular Disease | DX: R07.9 Chest pain, unspecified (principal); R94.31 Abnormal electrocardiogram [ECG] [EKG] | CPT/HCPCS: 93010 ==

== ENCOUNTER → 2023-10-14 21:41 | Outpatient (BNV) | payer OTHER, SELFPAY | PROVIDERS: Admitting Provider Internal Medicine; Emergency Provider Emergency Medicine; PCP Internal Medicine; Visit Provider Internal Medicine | DX: N18.6 End stage renal disease (principal); Z99.2 Dependence on renal dialysis; R09.02 Hypoxemia | CPT/HCPCS: 99223; 99232; 99239 ==